=== PATIENT | male | born 1995 | race African-American/Black ===

== ENCOUNTER 2020-11-05 17:39 | Observation (INO) | payer OTHER ==
[2020-11-05] MEDS ORDERED: ONDANSETRON 4 MG/2 ML VIAL IVP STA (18:10)
[2020-11-05] MEDS ORDERED: ASPIRIN 81 MG PO STA (18:23)
[2020-11-05] MEDS ORDERED: SODIUM CHLORIDE 0.9% 500 ML 500 ML IV ONE (18:26)
--- NOTE | 2020-11-05 18:47 | XR ---
EXAMINATION TYPE: XR chest 1V portable DATE OF EXAM: 11/05/2020 COMPARISON: NONE HISTORY: Chest pain TECHNIQUE: Florinda view FINDINGS: Heart and mediastinum are normal. Lungs are clear. Diaphragm is normal. Bony thorax appears normal. There are chest leads. IMPRESSION: Normal chest.
[2020-11-05] MEDS ORDERED: PANTOPRAZOLE 40 MG/10 ML VIAL IVP ONE (20:05)
[2020-11-05] MEDS ORDERED: HYDROmorphone 1 MG/ML 1 ML SYRINGE IVP STA (20:05)
[2020-11-05] MEDS ORDERED: METOCLOPRAMIDE 5 MG/ML 2 ML VIAL IVP STA (20:11)
--- NOTE | 2020-11-05 20:26 | CT ---
EXAMINATION TYPE: CT angio thor/abd pel aorta DATE OF EXAM: 11/05/2020 COMPARISON: None HISTORY: Chest and abdominal pain, hx HTN. N/V CT DLP: 1498.1 mGycm Automated exposure control for dose reduction was used. CONTRAST: Performed with IV Contrast, patient injected with 100 mL of Isovue 370. Images obtained from the thoracic inlet to the floor the pelvis without and subsequently with IV cont rast. There are 3-D post processed images. The lungs are clear of infiltrate. There is no pleural effusion or pneumothorax. Heart size is normal . There is no pericardial effusion. There is no mediastinal adenopathy. There are no hilar masses. Th ere is normal contrast opacification of the pulmonary arteries. There are no filling defects. Thoraci c aorta is intact. There is arterial flow in the celiac artery and superior mesenteric artery. There is arterial flow in the renal and iliac and femoral arteries. There is no evidence of hemodynamic stenosis. There is normal arterial aneurysm or dissection. Bladder distends smoothly. Ureters are not dilated. There is normal contrast opacification of both ki dneys. There is no hydronephrosis. There is no retroperitoneal adenopathy. There is no mesenteric edema. There is no ascites or free air. There is no bowel obstruction. Appendi x appears normal. Liver spleen stomach pancreas gallbladder appear normal. The bile ducts are not dilated. Thoracic and lumbar vertebra have normal alignment. There is no compression fracture. The ribs appear intact. Bony pelvis intact. IMPRESSION: Normal CT angiogram of the chest abdomen pelvis. No evidence of pulmonary embolism.
[2020-11-05 20:39] LABS: INR 1.2 (<1.2); Prothrombin Time 12.3 sec (9.0-12.0)
[2020-11-05 20:47] LABS: Partial Thromboplastin Time 18.7 sec (22.0-30.0)
[2020-11-05 20:58] LABS: Basophils % (A) 0 %; Eosinophils # (A) 0.2 k/uL (0-0.7); Eosinophils % (A) 1 %; HCT 48.1 % (39.0-53.0); HGB 16.2 gm/dL (13.0-17.5); Lymphocytes # (A) 0.7 k/uL (1.0-4.8); Lymphocytes % (A) 6 %; MCHC 33.7 g/dL (31.0-37.0); Mean Platelet Volume 7.8; Monocytes # (A) 0.4 k/uL (0-1.0); Monocytes % (A) 3 %; Neutrophils # (A) 11.2 k/uL (1.3-7.7); Neutrophils % (A) 90 %; Platelet Count 204 k/uL (150-450); RBC 5.22 m/uL (4.30-5.90); RDW 12.4 % (11.5-15.5); WBC 12.4 k/uL (3.8-10.6)
[2020-11-05 21:11] LABS: ALT 26 U/L (4-49); AST 32 U/L (17-59); African American GFR (CKD) >90 (>60 ml/min/1.73 sqM); Albumin 5.1 g/dL (3.5-5.0); Alkaline Phosphatase 65 U/L (38-126); Anion Gap 13 mmol/L; Blood Urea Nitrogen 13 mg/dL (9-20); Carbon Dioxide 21 mmol/L (22-30); Chloride 109 mmol/L (98-107); Glucose 103 mg/dL (74-99); Lipase 47 U/L (23-300); Non-African American GFR(CKD) >90 (>60 ml/min/1.73 sqM); Potassium 4.1 mmol/L (3.5-5.1); Sodium 143 mmol/L (137-145); Total Bilirubin 0.5 mg/dL (0.2-1.3); Total Protein 8.2 g/dL (6.3-8.2)
--- NOTE | 2020-11-05 22:05 | ED ---
Nausea/Vomiting/Diarrhea HPI - General Source: patient Mode of arrival: ambulatory Limitations: no limitations <Manda Noe - Last Filed: 11/05/20 22:52> <Kiko Yang - Last Filed: 11/06/20 06:16> - General Chief complaint: Nausea/Vomiting/Diarrhea Stated complaint: Chest pain Time Seen by Provider: 11/05/20 17:50 - History of Present Illness Initial comments: 24-year-old male with history of hypertension presenting today for chief complaint of vomiting chest pain abdominal pain. Patient states that he began vomiting a few hours prior to arrival he states she is vomiting pretty hard he states he has both chest and abdominal pain he states is unsure which one began first. States he is nauseated. Patient denies any blood in his vomit or stool seems denies any USE dark black stools he denies any fevers he states he feels slightly short of breath. Denies headaches, fevers, cough. Denies localzied abdominal pain, just states its all over. Denies experiencing this in the past. Denies ripping tearing back pain, chest pressure, jaw or arm pain, Denies pain increasing with exertion or exertional dyspnea. Denies falls/head injuries. Patient has no additional complaints or concerns. on arrival patient actively vomiting. (Manda Noe) - Related Data Home Medications Medication Instructions Recorded Confirmed No Known Home Medications 11/05/20 11/05/20 Allergies Allergy/AdvReac Type Severity Reaction Status Date / Time No Known Allergies Allergy Verified 11/05/20 22:51 Review of Systems ROS Other: All systems not noted in ROS Statement are negative. <Manda Noe - Last Filed: 11/05/20 22:52> ROS Other: All systems not noted in ROS Statement are negative. <Kiko Yang - Last Filed: 11/06/20 06:16> ROS Statement: Those systems with pertinent positive or pertinent negative responses have been documented in the HPI. Past Medical History Past Medical History: No Reported History Past Surgical History: No Surgical Hx Reported Smoking Status: Current some day smoker Past Alcohol Use History: None Reported Past Drug Use History: Marijuana <Manda Noe - Last Filed: 11/05/20 22:52> General Exam Limitations: no limitations <Manda Noe - Last Filed: 11/05/20 22:52> - General Exam Comments Initial Comments: General: The patient is awake and alert, in no distress, but is vomiting Eye: Pupils are equal, round and reactive to light, extra-ocular movements are intact. No nystagmus. There is normal conjunctiva bilaterally. No signs of i cterus. Ears, nose, mouth and throat: There are moist mucous membranes and no oral lesions. Neck: The neck is supple, there is no tenderness or JVD. Cardiovascular: There is a regular rate and rhythm. No murmur, rub or gallop is appreciated. Respiratory: Lungs are clear to auscultation, respirations are non-labored, breath sounds are equal. No wheezes, stridor, rales, or rhonchi. Gastrointestinal: Soft, non-distended, diffuse upper abdominal pain, poorly localzied, no pulsatile masses, abdomen without masses or organomegaly noted. There is no rebound or guarding present. Musculoskeletal: Normal ROM, no tenderness. Strength 5/5. Sensation intact. Radial and Dp pulses equal bilaterally 2+. Neurological: A&O x 3. CN II-XII intact grossly, There are no obvious motor or sensory deficits. Coordination appears grossly intact. Speech is normal. Skin: Skin is warm and dry and no rashes or lesions are noted. Psychiatric: Cooperative, appropriate mood & affect, normal judgment. (Manda Noe) Course Vital Signs 11/05/20 11/05/20 11/05/20 17:40 20:38 20:58 Temperature 98.8 F Pulse Rate 65 71 Respiratory 18 18 Rate Blood Pressure 168/83 170/105 177/92 O2 Sat by Pulse 99 95 Oximetry 11/05/20 11/05/20 11/06/20 22:14 23:45 01:00 Temperature 99.1 F Pulse Rate 69 82 Respiratory 16 16 16 Rate Blood Pressure 138/77 152/84 147/83 O2 Sat by Pulse 95 98 97 Oximetry 11/06/20 11/06/20 03:23 04:58 Temperature Pulse Rate 87 97 Respiratory 18 16 Rate Blood Pressure 154/92 158/76 O2 Sat by Pulse 97 98 Oximetry Medical Decision Making - Lab Data Result diagrams: 11/05/20 20:44 11/05/20 20:44 <Manda Noe - Last Filed: 11/05/20 22:52> - Lab Data Result diagrams: 11/05/20 20:44 11/05/20 20:44 - Radiology Data Radiology results: report reviewed (CT a negative for acute disease), image reviewed <Kiko Yang - Last Filed: 11/06/20 06:16> - Medical Decision Making Labs mild leukocytosis, no lower abdominal pain. no localized pain. CTA (-) dissection/PE, or acute intrabdominal process. EKG t-waves appear prominent in lateral leads. initial troponin (-). symptoms betteer per patient. discussed case with Dr. Yang who is awaiting results of 3 hour troponin (Manda Noe) 24 male DF for evaluation with mildly mild troponin. Patient refusing discharge states he has persistent chest pain here in the ER, we'll admit for chest pain observation cardiology (Kiko Yang) - Lab Data Lab Results 11/05/20 11/05/20 11/05/20 Range/Units 19:27 20:44 20:44 WBC 12.4 H (3.8-10.6) k/uL RBC 5.22 (4.30-5.90) m/uL Hgb 16.2 (13.0-17.5) gm/dL Hct 48.1 (39.0-53.0) % MCV 92.0 (80.0-100.0) fL MCH 31.0 (25.0-35.0) pg MCHC 33.7 (31.0-37.0) g/dL RDW 12.4 (11.5-15.5) % Plt Count 204 (150-450) k/uL MPV 7.8 Neutrophils % 90 % Lymphocytes % 6 % Monocytes % 3 % Eosinophils % 1 % Basophils % 0 % Neutrophils # 11.2 H (1.3-7.7) k/uL Lymphocytes # 0.7 L (1.0-4.8) k/uL Monocytes # 0.4 (0-1.0) k/uL Eosinophils # 0.2 (0-0.7) k/uL Basophils # 0.0 (0-0.2) k/uL PT 12.3 H (9.0-12.0) sec INR 1.2 H (<1.2) APTT 18.7 L (22.0-30.0) sec Sodium 143 (137-145) mmol/L Potassium 4.1 (3.5-5.1) mmol/L Chloride 109 H (98-107) mmol/L Carbon Dioxide 21 L (22-30) mmol/L Anion Gap 13 mmol/L BUN 13 (9-20) mg/dL Creatinine 1.09 (0.66-1.25) mg/dL Est GFR (CKD-EPI)AfAm >90 (>60 ml/min/1.73 sqM) Est GFR (CKD-EPI)NonAf >90 (>60 ml/min/1.73 sqM) Glucose 103 H (74-99) mg/dL Calcium 10.0 (8.4-10.2) mg/dL Magnesium 2.0 (1.6-2.3) mg/dL Total Bilirubin 0.5 (0.2-1.3) mg/dL AST 32 (17-59) U/L ALT 26 (4-49) U/L Alkaline Phosphatase 65 (38-126) U/L Troponin I (0.000-0.034) ng/mL NT-Pro-B Natriuret Pep pg/mL Total Protein 8.2 (6.3-8.2) g/dL Albumin 5.1 H (3.5-5.0) g/dL Lipase 47 (23-300) U/L Influenza Type A (PCR) (Not Detectd) Influenza Type B (PCR) (Not Detectd) RSV (PCR) (Not Detectd) SARS-CoV-2 (PCR) (Not Detectd) 11/05/20 11/05/20 11/05/20 Range/Units 20:44 20:44 22:12 WBC (3.8-10.6) k/uL RBC (4.30-5.90) m/uL Hgb (13.0-17.5) gm/dL Hct (39.0-53.0) % MCV (80.0-100.0) fL MCH (25.0-35.0) pg MCHC (31.0-37.0) g/dL RDW (11.5-15.5) % Plt Count (150-450) k/uL MPV Neutrophils % % Lymphocytes % % Monocytes % % Eosinophils % % Basophils % % Neutrophils # (1.3-7.7) k/uL Lymphocytes # (1.0-4.8) k/uL Monocytes # (0-1.0) k/uL Eosinophils # (0-0.7) k/uL Basophils # (0-0.2) k/uL PT (9.0-12.0) sec INR (<1.2) APTT (22.0-30.0) sec Sodium (137-145) mmol/L Potassium (3.5-5.1) mmol/L Chloride (98-107) mmol/L Carbon Dioxide (22-30) mmol/L Anion Gap mmol/L BUN (9-20) mg/dL Creatinine (0.66-1.25) mg/dL Est GFR (CKD-EPI)AfAm (>60 ml/min/1.73 sqM) Est GFR (CKD-EPI)NonAf (>60 ml/min/1.73 sqM) Glucose (74-99) mg/dL Calcium (8.4-10.2) mg/dL Magnesium (1.6-2.3) mg/dL Total Bilirubin (0.2-1.3) mg/dL AST (17-59) U/L ALT (4-49) U/L Alkaline Phosphatase (38-126) U/L Troponin I 0.014 (0.000-0.034) ng/mL NT-Pro-B Natriuret Pep 41 pg/mL Total Protein (6.3-8.2) g/dL Albumin (3.5-5.0) g/dL Lipase (23-300) U/L Influenza Type A (PCR) Not Detected (Not Detectd) Influenza Type B (PCR) Not Detected (Not Detectd) RSV (PCR) Not Detected (Not Detectd) SARS-CoV-2 (PCR) Not Detected (Not Detectd) 11/06/20 Range/Units 00:11 WBC (3.8-10.6) k/uL RBC (4.30-5.90) m/uL Hgb (13.0-17.5) gm/dL Hct (39.0-53.0) % MCV (80.0-100.0) fL MCH (25.0-35.0) pg MCHC (31.0-37.0) g/dL RDW (11.5-15.5) % Plt Count (150-450) k/uL MPV Neutrophils % % Lymphocytes % % Monocytes % % Eosinophils % % Basophils % % Neutrophils # (1.3-7.7) k/uL Lymphocytes # (1.0-4.8) k/uL Monocytes # (0-1.0) k/uL Eosinophils # (0-0.7) k/uL Basophils # (0-0.2) k/uL PT (9.0-12.0) sec INR (<1.2) APTT (22.0-30.0) sec Sodium (137-145) mmol/L Potassium (3.5-5.1) mmol/L Chloride (98-107) mmol/L Carbon Dioxide (22-30) mmol/L Anion Gap mmol/L BUN (9-20) mg/dL Creatinine (0.66-1.25) mg/dL Est GFR (CKD-EPI)AfAm (>60 ml/min/1.73 sqM) Est GFR (CKD-EPI)NonAf (>60 ml/min/1.73 sqM) Glucose (74-99) mg/dL Calcium (8.4-10.2) mg/dL Magnesium (1.6-2.3) mg/dL Total Bilirubin (0.2-1.3) mg/dL AST (17-59) U/L ALT (4-49) U/L Alkaline Phosphatase (38-126) U/L Troponin I 0.015 (0.000-0.034) ng/mL NT-Pro-B Natriuret Pep pg/mL Total Protein (6.3-8.2) g/dL Albumin (3.5-5.0) g/dL Lipase (23-300) U/L Influenza Type A (PCR) (Not Detectd) Influenza Type B (PCR) (Not Detectd) RSV (PCR) (Not Detectd) SARS-CoV-2 (PCR) (Not Detectd) Disposition <Manda Noe - Last Filed: 11/05/20 22:52> Is patient prescribed a controlled substance at d/c from ED?: No <Kiko Yang - Last Filed: 11/06/20 06:16> Clinical Impression: Chest pain Disposition: ADMITTED IP TO THIS HOSP Condition: Good
[2020-11-06] MEDS ORDERED: NITROGLYCERIN SL TABS 0.4 MG TAB SUBLINGUAL PRN (05:04)
[2020-11-06] MEDS: MORPHINE SULFATE 4 MG/ML SYRINGE IV PRN ×4 (06:28→19:45)
--- NOTE | 2020-11-06 09:28 | P.CRDCN ---
History of Present Illness History of present illness: HISTORY OF PRESENTING ILLNESS This is a pleasant 24-year-old -[place] male past medical history significant for chronic nicotine and marijuana use. Denies prior history of coronary artery disease and does not follow in the office with a director specialty. We have been asked to see in consultation for chest pain. 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 Was associated with nausea, vomiting and epigastric abdominal pain. He continues to have ongoing chest discomfort when he takes a deep breath and has epigastric tenderness on exam. He denies exertional chest discomfort. He has no significant shortness of breath, palpitations or diaphoresis. EKG on arrival reveals sinus mechanism with early repolarization changes noted in the precordial leads with ST depression in V1. There is no old EKG for comparison. The patient states he has not had an EKG before to his knowledge. Chest x-ray is negative for an acute cardiopulmonary process. CT of the thoracic aorta is unremarkable with no evidence of PE. Laboratory data reviewed, WBC 12.4, hemoglobin 16.2, platelets 204, sodium 143, potassium 4.1, creatinine 1.09, magnesium 2.0, cardiac enzymes negative 3, NT proBNP 41. REVIEW OF SYSTEMS At the time of my exam: CONSTITUTIONAL: Denies fever or chills. CARDIOVASCULAR: Complains of pleuritic chest pain. Denies shortness of breath, orthopnea, PND or palpitations. RESPIRATORY: Denies cough. GASTROINTESTINAL: Complains of epigastric tenderness. Denies abdominal pain, diarrhea, constipation, nausea or vomiting. MUSCULOSKELETAL: Denies myalgias. NEUROLOGIC: Denies numbness, tingling, headacbe or weakness. ENDOCRINE: Denies fatigue, weight change, polydipsia or polyurina. GENITOURINARY: Denies burning, hematuria or urgency with micturation. HEMATOLOGIC: Denies history of anemia or bleeding. PHYSICAL EXAMINATION Blood pressure 150/82 heart rate 80 afebrile and maintaining oxygen saturation on room air. CONSTITUTIONAL: No apparent distress. HEENT: Head is normocephalic. Pupils are equal, round. Sclerae anicteric. Mucous membranes of the mouth are moist. No JVD. No carotid bruit. CHEST EXAMINATION: Lungs are clear to auscultation. No chest wall tenderness is noted on palpation or with deep breathing. HEART EXAMINATION: Regular rate and rhythm. S1, S2 heard. No murmurs, gallops or rub. ABDOMEN: Soft, nontender. Positive bowel sounds. EXTREMITIES: 2+ peripheral pulses, no lower extremity edema and no calf tenderness. NEUROLOGIC EXAMINATION: Patient is awake, alert and oriented x3. ASSESSMENT Chest pain, pleuritic. Atypical for angina. Leukocytosis Abnormal EKG Epigastric tenderness Hypertension, could be related to pain Chronic nicotine dependence Marijuana use PLAN An acute coronary event has been ruled out. Chest pain is pleuritic and atypical to be related to angina. Abnormal EKG and discomfort could be related to pericarditis we will check a sed rate and CRP. Epigastric discomfort to be evaluated by the primary care team. Echocardiogram has been obtained and will be reviewed. Thank you kindly for this consultation. Nurse Practitioner note has been reviewed, I agree with a documented findings and plan of care. Patient was seen and examined. Past Medical History Past Medical History: No Reported History Past Surgical History: No Surgical Hx Reported Smoking Status: Current some day smoker Past Alcohol Use History: None Reported Past Drug Use History: Marijuana Medications and Allergies Home Medications Medication Instructions Recorded Confirmed Type No Known Home Medications 11/05/20 11/05/20 History Allergies Allergy/AdvReac Type Severity Reaction Status Date / Time No Known Allergies Allergy Verified 11/05/20 22:51 Physical Exam Vitals: Vital Signs Temp Pulse Resp BP Pulse Ox 11/06/20 07:27 98.6 F 80 18 150/82 96 11/06/20 06:15 91 16 159/79 98 11/06/20 04:58 97 16 158/76 98 11/06/20 03:23 87 18 154/92 97 11/06/20 01:00 16 147/83 97 11/05/20 23:45 82 16 152/84 98 11/05/20 22:14 99.1 F 69 16 138/77 95 11/05/20 20:58 177/92 11/05/20 20:38 71 18 170/105 95 11/05/20 17:40 98.8 F 65 18 168/83 99 Intake and Output 11/05/20 11/06/20 11/06/20 22:59 06:59 14:59 Other: Weight 86.183 kg Results 11/05/20 20:44 11/05/20 20:44 Cardiac Enzymes 11/05/20 11/05/20 11/06/20 Range/Units 20:44 20:44 00:11 AST 32 (17-59) U/L Troponin I 0.014 0.015 (0.000-0.034) ng/mL 11/06/20 Range/Units 07:14 AST (17-59) U/L Troponin I 0.012 (0.000-0.034) ng/mL Coagulation 11/05/20 Range/Units 19:27 PT 12.3 H (9.0-12.0) sec APTT 18.7 L (22.0-30.0) sec CBC 11/05/20 Range/Units 20:44 WBC 12.4 H (3.8-10.6) k/uL RBC 5.22 (4.30-5.90) m/uL Hgb 16.2 (13.0-17.5) gm/dL Hct 48.1 (39.0-53.0) % Plt Count 204 (150-450) k/uL Comprehensive Metabolic Panel 11/05/20 Range/Units 20:44 Sodium 143 (137-145) mmol/L Potassium 4.1 (3.5-5.1) mmol/L Chloride 109 H (98-107) mmol/L Carbon Dioxide 21 L (22-30) mmol/L BUN 13 (9-20) mg/dL Creatinine 1.09 (0.66-1.25) mg/dL Glucose 103 H (74-99) mg/dL Calcium 10.0 (8.4-10.2) mg/dL AST 32 (17-59) U/L ALT 26 (4-49) U/L Alkaline Phosphatase 65 (38-126) U/L Total Protein 8.2 (6.3-8.2) g/dL Albumin 5.1 H (3.5-5.0) g/dL Current Medications Generic Name Dose Route Start Last Admin Trade Name Freq PRN Reason Stop Dose Admin Aspirin 325 mg 11/06/20 09:00 Aspirin 325 Mg Tab PO DAILY MILAGRO Morphine Sulfate 4 mg 11/06/20 05:04 11/06/20 06:28 Morphine Sulfate 4 Mg/Ml Syringe IV 4 mg Q4HR PRN Administration Chest Pain Nitroglycerin 0.4 mg 11/06/20 05:04 Nitroglycerin Sl Tabs 0.4 Mg Tab SUBLINGUAL Q5M PRN Chest Pain Intake and Output 11/05/20 11/06/20 11/06/20 22:59 06:59 14:59 Other: Weight 86.183 kg 11/05/20 20:44 11/05/20 20:44
[2020-11-06] MEDS: ASPIRIN 325 MG TAB PO SCH (10:17)
--- NOTE | 2020-11-06 11:58 | ECHOF ---
Referral Reason: MEASUREMENTS -------- HEIGHT: 182.9 cm WEIGHT: 86.2 kg BP: RVIDd: 2.0 cm (< 3.3) IVSd: 1.4 cm (0.6 - 1.1) LVIDd: 3.9 cm (3.9 - 5.3) LVPWd: 1.6 cm (0.6 - 1.1) IVSs: 1.7 cm LVIDs: 2.5 cm LVPWs: 2.0 cm LA Diam: 3.1 cm (2.7 - 3.8) Ao Diam: 3.4 cm (2.0 - 3.7) MV EXCURSION: 16.264 mm (> 18.000) MV EF SLOPE: 108 mm/s (70 - 150) EPSS: 0.7 cm MV E Govind: 0.74 m/s MV DecT: 145 ms MV A Govind: 0.47 m/s MV E/A Ratio: 1.59 RAP: 5.00 mmHg RVSP: 15.58 mmHg FINDINGS -------- Sinus rhythm. This was a technically adequate study. The left ventricular size is normal. There is moderate concentric left ventricular hypertrophy. O verall left ventricular systolic function is normal with, an EF between 55 - 60 %. The diastolic fi lling pattern is normal for the age of the patient 7.94. The right ventricle is normal in size. The left atrial size is normal. The right atrial size is normal. The aortic valve is trileaflet, and appears structurally normal. No aortic stenosis or regurgitation. The mitral valve is normal. Mild mitral regurgitation is present. The tricuspid valve appears structurally normal. Mild tricuspid regurgitation present. Right vent ricular systolic pressure is normal at < 35 mmHg. There is no pulmonic regurgitation present. The aortic root size is normal. There is no pericardial effusion. CONCLUSIONS -------- 1. There is moderate concentric left ventricular hypertrophy. 2. Overall left ventricular systolic function is normal with, an EF between 55 - 60 %. 3. The left atrial size is normal. 4. The aortic valve is trileaflet, and appears structurally normal. No aortic stenosis or regurgitati on. 5. Mild mitral regurgitation is present. 6. Mild tricuspid regurgitation present. 7. There is no pericardial effusion. CERTIFIED PERSONAL CHEF: Tanya Garcia RDCS
--- NOTE | 2020-11-06 14:28 | P.HPIM ---
History of Present Illness 24-year-old pleasant male came in with the complaints of epigastric and midabdominal pain as well as chest pain and epigastric pain is a burning in nature started a few hours after eating an Ukrainian sandwich at work patient was also complained of chest pressure like sensation as the as at that same time patient felt like he cannot catch her breath. Although he denied any obvious pleuritic nature of chest pain. Patient had a CT of the abdomen and pelvis and thoracic aorta as well as chest CT which did not show any pulmonary embolism no significant pathology was evident on the CT of the abdomen. Patient was evaluated by cardiology. Echocardiogram was obtained which is essentially within normal limits. Patient does use marijuana occasionally but he states his last marijuana use was about a week ago denied any other drug abuse does smoke occasionally as well. Used to smoke quite a bit trying to cut down. This was also complaining of nausea no diaphoresis. Review of Systems REVIEW OF SYSTEMS: CONSTITUTIONAL: No fever, no malaise, no fatigue. HEENT: No recent visual problems or hearing problems. Denied any sore throat. CARDIOVASCULAR: No orthopnea, PND, no palpitations, no syncope. PULMONARY: no cough, no hemoptysis. GASTROINTESTINAL: As mentioned in HPI NEUROLOGICAL: No headaches, no weakness, no numbness. HEMATOLOGICAL: Denies any bleeding or petechiae. GENITOURINARY: Denies any burning micturition, frequency, or urgency. MUSCULOSKELETAL/RHEUMATOLOGICAL: Denies any joint pain, swelling, or any muscle pain. ENDOCRINE: Denies any polyuria or polydipsia. The rest of the 14-point review of systems is negative. Past Medical History Past Medical History: Asthma, Hypertension, Pneumonia Additional Past Medical History / Comment(s): Pt states he has had HTN in the past and was on HTN medication but was taken off of it and is monitoring his blood pressure. History of Any Multi-Drug Resistant Organisms: None Reported Past Surgical History: Hernia Repair Additional Past Surgical History / Comment(s): Umbilical hernia as a child Past Anesthesia/Blood Transfusion Reactions: No Reported Reaction Smoking Status: Current every day smoker - Past Family History Father Family Medical History: Diabetes Mellitus, Hypertension Additional Family Medical History / Comment(s): Father had bariatric surgery Mother Additional Family Medical History / Comment(s): Vision issues. Medications and Allergies Home Medications Medication Instructions Recorded Confirmed Type No Known Home Medications 11/05/20 11/05/20 History Allergies Allergy/AdvReac Type Severity Reaction Status Date / Time No Known Allergies Allergy Verified 11/05/20 22:51 Physical Exam Vitals: Vital Signs Temp Pulse Pulse Resp BP BP Pulse Ox 11/06/20 12:10 98.7 F 66 16 114/72 97 11/06/20 11:37 98.6 F 106 H 18 165/95 96 11/06/20 10:18 106 H 18 165/95 96 11/06/20 07:27 98.6 F 80 18 150/82 96 11/06/20 06:15 91 16 159/79 98 11/06/20 04:58 97 16 158/76 98 11/06/20 03:23 87 18 154/92 97 11/06/20 01:00 16 147/83 97 11/05/20 23:45 82 16 152/84 98 11/05/20 22:14 99.1 F 69 16 138/77 95 11/05/20 20:58 177/92 11/05/20 20:38 71 18 170/105 95 11/05/20 17:40 98.8 F 65 18 168/83 99 Intake and Output 11/05/20 11/06/20 11/06/20 22:59 06:59 14:59 Other: Weight 86.183 kg 86.183 kg Results CBC & Chem 7: 11/05/20 20:44 11/05/20 20:44 Labs: Abnormal Lab Results - Last 24 Hours (Table) 11/05/20 11/05/20 11/05/20 Range/Units 19:27 20:44 20:44 WBC 12.4 H (3.8-10.6) k/uL Neutrophils # 11.2 H (1.3-7.7) k/uL Lymphocytes # 0.7 L (1.0-4.8) k/uL PT 12.3 H (9.0-12.0) sec INR 1.2 H (<1.2) APTT 18.7 L (22.0-30.0) sec Chloride 109 H (98-107) mmol/L Carbon Dioxide 21 L (22-30) mmol/L Glucose 103 H (74-99) mg/dL Albumin 5.1 H (3.5-5.0) g/dL Thrombosis Risk Factor Assmnt - Choose All That Apply Any of the Below Risk Factors Present?: No Other Risk Factors: No Other congenital or acquired thrombophilia - If yes, enter type in comment: No Thrombosis Risk Factor Assessment Level: Very Low Risk Assessment and Plan Plan: -Chest pain atypical probably musculoskeletal patient the doesn't have any pneumonia ruled out pulmonary embolism. Echocardiogram within normal limits and washed wall motion abnormalities -Abdominal pain: Probably peptic ulcer disease, gastritis or gastroenteritis patient will be started on Protonix will hydrate him, patient will be monitored and ultrasound of the right upper quadrant will be obtained to evaluate any cholelithiasis -Hypertension -Nicotine dependence and marijuana use
[2020-11-06] MEDS: PANTOPRAZOLE 40 MG/10 ML VIAL IVP SCH (19:44)
[2020-11-07] MEDS: MORPHINE SULFATE 4 MG/ML SYRINGE IV PRN ×2 (04:11→09:03)
[2020-11-07 06:30] LABS: Cholesterol 234 mg/dL (<200); HDL Cholesterol 37 mg/dL (40-60); LDL Cholesterol,Calculated 182 mg/dL (0-99); Triglycerides 73 mg/dL (<150)
--- NOTE | 2020-11-07 07:35 | US ---
EXAMINATION TYPE: US gallbladder DATE OF EXAM: 11/07/2020 COMPARISON: NONE CLINICAL HISTORY: abd pain. pain, NPO EXAM MEASUREMENTS: Liver Length: 15.9 cm Gallbladder Wall: 0.1 cm CBD: 0.4 cm Right Kidney: 10.5 x 4.8 x 3.7 cm Pancreas: Obscured by bowel gas Liver: wnl Gallbladder: fold seen Evidence for sonographic Aviles's sign: neg CBD: wnl Right Kidney: No hydronephrosis or masses seen IMPRESSION: 1. No acute process as visualized.
[2020-11-07] MEDS: PANTOPRAZOLE 40 MG/10 ML VIAL IVP SCH ×2 (08:56→19:54)
[2020-11-07] MEDS: ASPIRIN 325 MG TAB PO SCH (08:56)
--- NOTE | 2020-11-07 09:38 | P.PN ---
Subjective HISTORY OF PRESENTING ILLNESS This is a pleasant 24-year-old -Tong[place] male past medical history significant for chronic nicotine and marijuana use. 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 We have been asked to see in consultation for chest pain. 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 Was associated with nausea, vomiting and epigastric abdominal pain. He continues to have ongoing chest discomfort when he takes a deep breath and has epigastric tenderness on exam. He denies exertional chest discomfort. He has no significant shortness of breath, palpitations or diaphoresis. EKG on arrival reveals sinus mechanism with early repolarization changes noted in the precordial leads with ST depression in V1. There is no old EKG for comparison. The patient states he has not had an EKG before to his knowledge. Chest x-ray is negative for an acute cardiopulmonary process. CT of the thoracic aorta is unremarkable with no evidence of PE. Laboratory data reviewed, WBC 12.4, hemoglobin 16.2, platelets 204, sodium 143, potassium 4.1, creatinine 1.09, magnesium 2.0, cardiac enzymes negative 3, NT proBNP 41. 11/07/2020 Patient seen and examined resting comfortably laying flat in bed in no acute distress. He continues to complain of abdominal discomfort. He has had no further symptoms of chest pain. Breathing is stable. Blood pressure 118/77 heart rate 63 afebrile maintaining oxygen saturation on room air. Repeat EKG reveals sinus mechanism with ST abnormalities noted as previous. No changes. Likely normal variant for this gentleman. Laboratory data reviewed, LDL 182, HDL 37 and total cholesterol 234, sedimentation rate 6 and CRP 0.7. He underwent an ultrasound of his gallbladder that was negative for an acute process. Echocardiogram obtained reveals preserved LV systolic function with ejection fraction 55-60%, mild MR and mild TR. PHYSICAL EXAMINATION CONSTITUTIONAL: No apparent distress. HEENT: Head is normocephalic. Pupils are equal, round. Sclerae anicteric. Mucous membranes of the mouth are moist. No JVD. No carotid bruit. CHEST EXAMINATION: Lungs are clear to auscultation. No chest wall tenderness is noted on palpation or with deep breathing. HEART EXAMINATION: Regular rate and rhythm. S1, S2 heard. No murmurs, gallops or rub. EXTREMITIES: 2+ peripheral pulses, no lower extremity edema and no calf tenderness. ASSESSMENT Chest pain, pleuritic. Atypical for angina. Leukocytosis Abnormal EKG Epigastric tenderness Hypertension, could be related to pain Chronic nicotine dependence Marijuana use Dyslipidemia PLAN Clinically stable from a cardiac perspective. No evidence to suggest cardiac etiology of his discomfort. Ongoing medical management. We will follow along as needed. Recommend lifestyle modifications for lowering of LDL cholesterol. Would suggest repeat lipid panel in 3-6 months after diet and exercise regimen has been initiated. Nurse Practitioner note has been reviewed, I agree with a documented findings and plan of care. Patient was seen and examined. Objective - Vital Signs Vital signs: Vital Signs Temp 98.2 F 11/07/20 07:04 Pulse 63 11/07/20 07:04 Resp 14 11/07/20 07:04 BP 118/77 11/07/20 07:04 Pulse Ox 97 11/07/20 07:04 Intake & Output 11/06/20 11/07/20 11/07/20 18:59 06:59 18:59 Intake Total 400 Balance 400 Weight 86.183 kg Intake: Oral 400 Other: # Voids 0 1 - Labs CBC & Chem 7: 11/05/20 20:44 11/05/20 20:44 Labs: Abnormal Lab Results - Last 24 Hours (Table) 11/05/20 Range/Units 20:44 Cholesterol 234 H (<200) mg/dL LDL Cholesterol, Calc 182 H (0-99) mg/dL HDL Cholesterol 37 L (40-60) mg/dL
[2020-11-07] MEDS: traMADol 50 MG TAB PO PRN ×2 (12:18→19:54)
[2020-11-07 13:57] VITALS: BMI 25.0
[2020-11-07] MEDS ORDERED: fentaNYL (PF) 50 MCG/ML 2 ML AMP ONE (14:04)
[2020-11-07] MEDS ORDERED: LIDOCAINE 1% INJ 10MG/ML (20 ML MDV) ONE (14:04)
[2020-11-07] MEDS ORDERED: PROPOFOL 10 MG/ML 20 ML VIAL IV ONE (14:04)
[2020-11-07] MEDS ORDERED: MIDAZOLAM 2 MG/2 ML VIAL ONE (14:04)
[2020-11-07] MEDS ORDERED: SODIUM CHLORIDE 0.9% 500 ML 500 ML IV ONE (14:06)
--- NOTE | 2020-11-07 14:16 | P.PCN ---
Date of Procedure: 11/07/20 Procedure(s) Performed: BRIEF HISTORY: Patient is a 24-year-old, pleasant, have intermittent female admitted hospital with epigastric pain and chest pain of the last [address] of abdomen and pelvis was unremarkable. His and scheduled for an upper endoscopy to evaluate further. PROCEDURE PERFORMED: Esophagogastroduodenoscopy with biopsy. PREOPERATIVE DIAGNOSIS: Severe epigastric pain of 2 days' duration. IV sedation per anesthesia. PROCEDURE: After informed consent was obtained, the patient was brought into the endoscopy unit. IV sedation was administered by Anesthesia under continuous monitoring. Initially the Olympus GIF-140 video endoscope was inserted into the mouth. Esophagus intubated without any difficulty. It was gradually advanced into the stomach and duodenum and carefully examined. The bulb and the second part of the duodenum appeared normal. The scope at this time was withdrawn to the stomach, adequately insufflated with air, and upon careful examination, mucosa of the antrum, mild diffuse gastritis and biopsies were done from this area. The body, cardia and the fundus appeared normal. The scope was then withdrawn into the esophagus. The GE junction was located at 42 cm from the incisors. The esophagus appeared normal. There were no erosions or ulcerations seen and the patient tolerated the procedure well. IMPRESSION: 1. Mild diffuse antral gastritis but no evidence of peptic ulcer disease. 2. Normal-appearing esophagus with no evidence of esophagitis. RECOMMENDATIONS: The findings of this examination were discussed with the patient . He will follow with the biopsy results. He will be continued on Protonix 40 mg twice daily. 11 Carafate 1 g 4 times daily. Advance diet as tolerated..
--- NOTE | 2020-11-07 14:52 | CONS ---
CONSULTATION DATE OF DICTATION: November 07, 2020. REASON FOR CONSULTATION: Severe upper abdominal pain of 3 days duration. HISTORY OF PRESENT ILLNESS: The patient is a 24-year-old male, came into the emergency room complaining of epigastric and periumbilical abdominal pain that started about 2 days ago. He went to work and he started having severe symptoms following which he had several episodes of nausea, vomiting. The pain radiated to his chest, initially had some burning pain, but continued to progressively get worse and hence came into the emergency room. He had a CT of the chest done that was unremarkable. Subsequently had a CT of the abdomen and pelvis done that also was unremarkable. He was started on IV Protonix 40 mg q.12 hours. The patient continues to have persistent symptoms and hence we are consulted for further evaluation. The patient denies any prior history of peptic ulcer disease or recent NSAID use. Denies any rectal bleeding or melena. Denies any significant change in his bowel habits. PAST MEDICAL HISTORY: Asthma, hypertension. MEDICATIONS AT HOME: None. ALLERGIES: No known drug allergies. PAST SURGICAL HISTORY: Umbilical hernia repair as a child. SOCIAL HISTORY: Chronic smoker. No alcohol use. FAMILY HISTORY: Father diabetes mellitus and hypertension. Mother unremarkable. REVIEW OF SYSTEMS: CARDIOPULMONARY: No chest pain or shortness of breath. GENITOURINARY: No dysuria or hematuria. MUSCULOSKELETAL: Unremarkable. SKIN: Unremarkable. ENDOCRINE: Unremarkable. PSYCHIATRIC: Unremarkable. NEUROLOGY: Unremarkable. ENT/VISION: Unremarkable. CONSTITUTIONAL: No recent weight loss. No fever, chills, night sweats. PHYSICAL EXAMINATION: He appears comfortable. No apparent distress. Vital signs are stable. Blood pressure is 133/82, pulse is 63, temperature 98.2. HEENT EXAMINATION: Unremarkable. Conjunctivae pink. Sclerae anicteric. Oral cavity no lesions. NECK: No JVD or lymph node enlargement. CHEST: Was clear to auscultation. HEART: Regular rate and rhythm. ABDOMEN: Soft. Mild tenderness in the epigastric and periumbilical area. No organomegaly. EXTREMITIES: No pedal edema. NEUROLOGIC: Alert and oriented x3. No focal deficits. LABS: WBC 12.4, hemoglobin 16, platelets normal. PT, INR normal. ALT, AST, T bilirubin and alkaline phosphatase are normal. Albumin 5.1. Coronavirus PCR is negative. IMPRESSION: This is a patient who presents to the hospital with acute onset of severe epigastric pain and chest pain that started about 2 days ago, had multiple episodes of nausea, vomiting. CT of the abdomen was unremarkable. CT of the chest was unremarkable. Rule out possibility of peptic ulcer disease. Presently on IV Protonix 40 mg q.12 hours and still remains symptomatic. RECOMMENDATION: 1. Keep the patient n.p.o. 2. Continue with Protonix 40 mg twice daily. 3. We will proceed with EGD today. 4. Discussed with patient risks, benefits and complications and he is agreeable to it. Thank you for this consultation. MMTATYL / IJN: [id number] /
--- NOTE | 2020-11-07 16:46 | P.DS ---
Providers Date of admission: 11/06/20 05:04 Expected date of discharge: 11/07/20 Attending physician: Sandy Castaneda Consults: 11/06/20 05:04 Consult Physician Urgent Consulting Provider: Shorty Lenz Consult Reason/Comments: cp Do you want consulting provider notified?: Yes 11/07/20 11:07 Consult Physician Urgent Consulting Provider: Keena Dutta Consult Reason/Comments: LLQ pain, unable to tolerate diet Do you want consulting provider notified?: Yes Primary care physician: Stated None Hospital Course: Final diagnosis -Chest pain atypical probably musculoskeletal patient the doesn't have any pneumonia ruled out pulmonary embolism. Echocardiogram within normal limits -Abdominal pain: Possible peptic ulcer disease, gastritis or gastroenteritis, that is post EGD showing mild antral gastritis with no peptic ulcer disease -Hypertension -Nicotine dependence and marijuana use Discharge disposition Patient is being discharged in a stable condition with guarded prognosis to home. Patient will follow-up with Dr. Aguilar in the outpatient setting upon discharge. Patient is to follow-up with cardiology and GI in the outpatient setting. Patient to continue with Protonix twice daily and Carafate and follow- up with GI for biopsy results. Total time taken is greater than 35 minutes. Hospital course 24-year-old pleasant male came in with the complaints of epigastric and midabdominal pain as well as chest pain and epigastric pain is a burning in nature started a few hours after eating an [place] sandwich at work patient was also complained of chest pressure like sensation as the as at that same time patient felt like he cannot catch her breath. Although he denied any obvious pleuritic nature of chest pain. Patient had a CT of the abdomen and pelvis and thoracic aorta as well as chest CT which did not show any pulmonary embolism no significant pathology was evident on the CT of the abdomen. Patient was evaluated by cardiology. Echocardiogram was obtained which is essentially within normal limits. Patient does use marijuana occasionally but he states his last marijuana use was about a week ago denied any other drug abuse does smoke occasionally as well. Used to smoke quite a bit trying to cut down. This was also complaining of nausea no diaphoresis. 11/07/2020 Patient is seen in follow-up and continues to have left lower quadrant pain and GI was consulted and patient underwent EGD which showed mild antral gastritis with no evidence of peptic ulcer disease and a normal-appearing esophagus with no evidence of esophagitis area patient will continue with Protonix twice daily along with Carafate and slowly advance diet as tolerated. Recommend continue with full liquids and advance slowly to low fiber over the next few days. Currently no reports of chest pain, shortness of breath, or palpitations. Patient is afebrile. No reports of nausea or vomiting and patient is tolerating diet. Patient will be discharged home today. On exam vital signs are stable. Cardio S1, S2 are muffled. Respiratory system shows diminished breath sounds at the bases with no wheezing or rhonchi noted. Abdomen is soft and nontender. Nervous system shows no focal deficits. Please refer to medication reconciliation sheet for a list of medications. Patient Condition at Discharge: Good Plan - Discharge Summary Discharge Rx Participant: No New Discharge Prescriptions: New traMADol HCl [Ultram] 50 mg PO QID PRN #12 tab PRN Reason: Pain Sucralfate [Carafate] 1 gm PO ACHS 30 Days #120 tab Pantoprazole Sodium [Protonix] 40 mg PO BID 30 Days #60 tablet. Discharge Medication List Pantoprazole Sodium [Protonix] 40 mg PO BID 30 Days #60 tablet. 11/07/20 [Rx] Sucralfate [Carafate] 1 gm PO ACHS 30 Days #120 tab 11/07/20 [Rx] traMADol HCl [Ultram] 50 mg PO QID PRN #12 tab 11/07/20 [Rx] Follow up Appointment(s)/Referral(s): Shorty Lenz MD [STAFF PHYSICIAN] - 2 Weeks Bassam Aguilar MD [REFERRING] - 1-2 Days Keena Dutta MD [STAFF PHYSICIAN] - 10 Days Patient Instructions/Handouts: Heart Healthy Diet (ED), Cholesterol and Your Health (GEN), Mediterranean Diet (DC) Activity/Diet/Wound Care/Special Instructions: Activity Limited until follow-up Follow-up with primary care provider upon discharge follow up with GI outpatient Continue with liquid diet and advance slowly to low fiber as tolerated Continue with Carafate with meals and at bed Continue with Protonix twice daily Discharge Disposition: HOME SELF-CARE
[2020-11-07] MEDS: SUCRALFATE 1 GM TAB PO SCH ×2 (16:49→19:55)
[2020-11-07 19:48] VITALS: RESP 16
[2020-11-08] MEDS: traMADol 50 MG TAB PO PRN ×2 (01:47→08:28)
[2020-11-08] MEDS: ONDANSETRON 4 MG/2 ML VIAL IVP PRN ×2 (01:48→08:28)
[2020-11-08 02:49] VITALS: PULSE 63
[2020-11-08 07:27] VITALS: BP 142/90; TEMP 98.1
[2020-11-08] MEDS: SUCRALFATE 1 GM TAB PO SCH (08:27)
[2020-11-08] MEDS: PANTOPRAZOLE 40 MG/10 ML VIAL IVP SCH (08:27)
[2020-11-08] MEDS: ASPIRIN 325 MG TAB PO SCH (08:28)
== END 2020-11-08 11:11 | disposition home or self-care (01) ==
LOC: EC 17:39 → 6NMEDSUR 11-06 05:04
PROVIDERS: ADMIT Hospitalist; ATTEND Hospitalist
DX: R07.9 Chest pain, unspecified (principal); K29.70 Gastritis, unspecified, without bleeding; I10 Essential (primary) hypertension; F17.200 Nicotine dependence, unspecified, uncomplicated; F12.90 Cannabis use, unspecified, uncomplicated; E78.5 Hyperlipidemia, unspecified; R94.31 Abnormal electrocardiogram [ECG] [EKG]; J45.909 Unspecified asthma, uncomplicated; Z20.822 Contact with and (suspected) exposure to COVID-19; Z87.01 Personal history of pneumonia (recurrent); Z82.49 Family history of ischemic heart disease and other diseases of the circulatory system; Z83.3 Family history of diabetes mellitus
CPT/HCPCS: 96376 ×3; 96361; 96374; 96375 ×2; 99285; 36415 ×2; 93005 ×2; 93306; 83880; 80061; 80053; 85652; 83690; 83735; 84484 ×2; 85025; 85610; 85730; 86140; 87636; 71045; 76705; 71275; 74174; 43239; G0378 ×3; J2250; J2270 ×2; J2765; J2405 ×2; J2001; J3010; J1170; J2704; C9113 ×4; Q9967; 88305; 88342

== ENCOUNTER 2020-11-15 08:40 | Emergency (ER) | payer OTHER ==
[2020-11-15 08:47] VITALS: RESP 18
[2020-11-15] MEDS ORDERED: diphenhydrAMINE 50 MG/ML 1 ML VIAL IVP STA (08:51)
[2020-11-15] MEDS ORDERED: PANTOPRAZOLE 40 MG/10 ML VIAL IVP STA (08:51)
[2020-11-15] MEDS ORDERED: SODIUM CHLORIDE 0.9% 2,000 ML IV STA (08:51)
[2020-11-15] MEDS ORDERED: ONDANSETRON 4 MG/2 ML VIAL IVP STA (08:51)
[2020-11-15 09:10] LABS: Basophils % (A) 0 %; Eosinophils # (A) 0.1 k/uL (0-0.7); Eosinophils % (A) 1 %; HCT 43.3 % (39.0-53.0); HGB 15.2 gm/dL (13.0-17.5); Lymphocytes # (A) 1.6 k/uL (1.0-4.8); Lymphocytes % (A) 16 %; MCH 31.7 pg (25.0-35.0); MCHC 35.2 g/dL (31.0-37.0); MCV 90.2 fL (80.0-100.0); Mean Platelet Volume 8.3; Monocytes # (A) 0.7 k/uL (0-1.0); Monocytes % (A) 7 %; Neutrophils # (A) 7.4 k/uL (1.3-7.7); Neutrophils % (A) 75 %; Platelet Count 226 k/uL (150-450); RDW 12.5 % (11.5-15.5); WBC 9.9 k/uL (3.8-10.6)
--- NOTE | 2020-11-15 09:16 | ED ---
General Adult HPI - General Chief complaint: Nausea/Vomiting/Diarrhea Stated complaint: N&V Time Seen by Provider: 11/15/20 08:43 Source: patient, EMS, RN notes reviewed Mode of arrival: ambulatory Limitations: no limitations - History of Present Illness Initial comments: This is a 24-year-old male presents emergency Department with chief complaint of abdominal discomfort, nausea vomiting. Patient states he was hospitalized recently in which they found he had gastritis. Patient states it isn't evaluated by cardiology also at that time. Patient states he started getting sick last night and states that he's been vomiting, dry heaving throughout the night. He does admit to mild epigastric discomfort no chest pain or shortness of breath denies any severe diarrhea constipation dysuria hematuria. Denies any history of abdominal surgeries. He has meant that he was discharged on medications for her stomach and has been compliant. - Related Data Previous Rx's Medication Instructions Recorded traMADol HCl [Ultram] 50 mg PO QID PRN #12 tab 11/07/20 Omeprazole [PriLOSEC] 40 mg PO DAILY #14 cap 11/15/20 Ondansetron Odt [Zofran Odt] 4 mg PO Q8HR PRN #10 tab 11/15/20 Allergies Allergy/AdvReac Type Severity Reaction Status Date / Time No Known Allergies Allergy Verified 11/15/20 09:52 Review of Systems ROS Statement: Those systems with pertinent positive or pertinent negative responses have been documented in the HPI. ROS Other: All systems not noted in ROS Statement are negative. Past Medical History Past Medical History: Asthma, Hypertension, Pneumonia Additional Past Medical History / Comment(s): Pt states he has had HTN in the past and was on HTN medication but was taken off of it and is monitoring his blood pressure. History of Any Multi-Drug Resistant Organisms: None Reported Past Surgical History: Hernia Repair Additional Past Surgical History / Comment(s): Umbilical hernia as a child Past Anesthesia/Blood Transfusion Reactions: No Reported Reaction Past Psychological History: No Psychological Hx Reported Smoking Status: Current every day smoker Past Alcohol Use History: None Reported Past Drug Use History: Marijuana - Past Family History Father Family Medical History: Diabetes Mellitus, Hypertension Additional Family Medical History / Comment(s): Father had bariatric surgery Mother Additional Family Medical History / Comment(s): Vision issues. General Exam Limitations: no limitations General appearance: alert, in no apparent distress Head exam: Present: atraumatic, normocephalic, normal inspection Eye exam: Present: normal appearance, PERRL, EOMI. Absent: scleral icterus, conjunctival injection, periorbital swelling ENT exam: Present: normal exam, normal oropharynx, mucous membranes moist Neck exam: Present: normal inspection, full ROM. Absent: tenderness, lymphadenopathy Respiratory exam: Present: normal lung sounds bilaterally. Absent: respiratory distress, wheezes, rales, rhonchi, stridor Cardiovascular Exam: Present: regular rate, normal rhythm, normal heart sounds. Absent: systolic murmur, diastolic murmur, rubs, gallop, clicks GI/Abdominal exam: Present: soft, tenderness (Mild epigastric tenderness), normal bowel sounds. Absent: distended, guarding, rebound, rigid Back exam: Absent: CVA tenderness (R), CVA tenderness (L) Neurological exam: Present: alert Skin exam: Present: warm, dry, intact, normal color. Absent: rash Course Vital Signs 11/15/20 08:44 Temperature 98.9 F Pulse Rate 82 Respiratory 18 Rate Blood Pressure 156/96 O2 Sat by Pulse 99 Oximetry Medical Decision Making - Medical Decision Making Patient laboratory unremarkable. Patient had recent workup. Patient has underlying gastritis. We discharged on antiemetics return parameters were discussed. - Lab Data Result diagrams: 11/15/20 08:52 11/15/20 08:52 Lab Results 11/15/20 11/15/20 Range/Units 08:52 08:52 WBC 9.9 (3.8-10.6) k/uL RBC 4.80 (4.30-5.90) m/uL Hgb 15.2 (13.0-17.5) gm/dL Hct 43.3 (39.0-53.0) % MCV 90.2 (80.0-100.0) fL MCH 31.7 (25.0-35.0) pg MCHC 35.2 (31.0-37.0) g/dL RDW 12.5 (11.5-15.5) % Plt Count 226 (150-450) k/uL MPV 8.3 Neutrophils % 75 % Lymphocytes % 16 % Monocytes % 7 % Eosinophils % 1 % Basophils % 0 % Neutrophils # 7.4 (1.3-7.7) k/uL Lymphocytes # 1.6 (1.0-4.8) k/uL Monocytes # 0.7 (0-1.0) k/uL Eosinophils # 0.1 (0-0.7) k/uL Basophils # 0.0 (0-0.2) k/uL Sodium 140 (137-145) mmol/L Potassium 3.8 (3.5-5.1) mmol/L Chloride 106 (98-107) mmol/L Carbon Dioxide 20 L (22-30) mmol/L Anion Gap 14 mmol/L BUN 14 (9-20) mg/dL Creatinine 1.14 (0.66-1.25) mg/dL Est GFR (CKD-EPI)AfAm >90 (>60 ml/min/1.73 sqM) Est GFR (CKD-EPI)NonAf 89 (>60 ml/min/1.73 sqM) Glucose 101 H (74-99) mg/dL Calcium 10.0 (8.4-10.2) mg/dL Total Bilirubin 0.6 (0.2-1.3) mg/dL AST 25 (17-59) U/L ALT 16 (4-49) U/L Alkaline Phosphatase 59 (38-126) U/L Total Protein 8.1 (6.3-8.2) g/dL Albumin 5.0 (3.5-5.0) g/dL Lipase 50 (23-300) U/L Disposition Clinical Impression: Gastritis, Nausea & vomiting Disposition: HOME SELF-CARE Condition: Stable Instructions (If sedation given, give patient instructions): Acute Nausea and Vomiting (ED), Diet for Stomach Ulcers and Gastritis (ED) Additional Instructions: Please return to the Emergency Department if symptoms worsen or any other concerns. Prescriptions: Omeprazole [PriLOSEC] 40 mg PO DAILY #14 cap Ondansetron Odt [Zofran Odt] 4 mg PO Q8HR PRN #10 tab PRN Reason: Nausea Is patient prescribed a controlled substance at d/c from ED?: No Referrals: None,Stated [Primary Care Provider] - 1-2 days Time of Disposition: 11:29
[2020-11-15 09:21] LABS: ALT 16 U/L (4-49); AST 25 U/L (17-59); African American GFR (CKD) >90 (>60 ml/min/1.73 sqM); Alkaline Phosphatase 59 U/L (38-126); Anion Gap 14 mmol/L; Blood Urea Nitrogen 14 mg/dL (9-20); Carbon Dioxide 20 mmol/L (22-30); Chloride 106 mmol/L (98-107); Glucose 101 mg/dL (74-99); Lipase 50 U/L (23-300); Non-African American GFR(CKD) 89 (>60 ml/min/1.73 sqM); Potassium 3.8 mmol/L (3.5-5.1); Sodium 140 mmol/L (137-145); Total Bilirubin 0.6 mg/dL (0.2-1.3); Total Protein 8.1 g/dL (6.3-8.2)
[2020-11-15 10:02] LABS: Appearance,Urine Clear (Clear); Bilirubin,Urine Negative (Negative); Blood,Urine Negative (Negative); Color,Urine Yellow; Glucose,Urine (UA) Negative (Negative); Ketones,Urine 3+ (Negative); Leukocyte Esterase,Urine Negative (Negative); Mucus,Urine Many /hpf; Nitrite,Urine Negative (Negative); PH, Urine 5.5 (5.0-8.0); Protein,Urine 1+ (Negative); Specific Gravity,Urine 1.032 (1.001-1.035); Urobilinogen,Urine <2.0 mg/dL (<2.0); WBC,Urine 4 /hpf (0-5)
[2020-11-15 12:02] VITALS: BP 127/88; PULSE 105; TEMP 98.6
== END 2020-11-15 12:05 | disposition home or self-care (01) ==
LOC: EC 08:40
DX: K29.70 Gastritis, unspecified, without bleeding (principal); J45.909 Unspecified asthma, uncomplicated; I10 Essential (primary) hypertension; F12.90 Cannabis use, unspecified, uncomplicated; F17.200 Nicotine dependence, unspecified, uncomplicated; Z79.899 Other long term (current) drug therapy
CPT/HCPCS: 36415; 80053; 83690; 85025; 81001; 99284; 96374; 96375 ×3; J1200; J2405; C9113; J1790

== ENCOUNTER 2021-11-04 09:02 | Emergency (ER) | payer OTHER ==
[2021-11-04 09:10] VITALS: BP 151/80; PULSE 68; RESP 18; TEMP 99.2
[2021-11-04] MEDS ORDERED: SODIUM CHLORIDE 0.9% 2,000 ML IV STA (09:41)
--- NOTE | 2021-11-04 10:02 | ED ---
Nausea/Vomiting/Diarrhea HPI - General Chief complaint: Nausea/Vomiting/Diarrhea Stated complaint: Nausea,Vomiting Time Seen by Provider: 11/04/21 09:12 Source: patient, EMS, RN notes reviewed Mode of arrival: EMS Limitations: no limitations - History of Present Illness Initial comments: This a 25-year-old male presents emergency Department with chief complaint of nausea vomiting abdominal pain. Patient states pain and vomiting started last 24 hours. Patient states that he's had persistent vomiting unable to keep any down states it is bilious emesis denies any hematemesis or coffee-ground emesis no significant bowel habit changes. No dysuria no hematuria no other complaints. - Related Data Previous Rx's Medication Instructions Recorded traMADol HCl [Ultram] 50 mg PO QID PRN #12 tab 11/07/20 Omeprazole [PriLOSEC] 40 mg PO DAILY #14 cap 11/15/20 Ondansetron Odt [Zofran Odt] 4 mg PO Q8HR PRN #10 tab 11/04/21 Allergies Allergy/AdvReac Type Severity Reaction Status Date / Time No Known Allergies Allergy Verified 11/15/20 09:52 Review of Systems ROS Statement: Those systems with pertinent positive or pertinent negative responses have been documented in the HPI. ROS Other: All systems not noted in ROS Statement are negative. Past Medical History Past Medical History: Asthma, Hypertension, Pneumonia Additional Past Medical History / Comment(s): Pt states he has had HTN in the past and was on HTN medication but was taken off of it and is monitoring his blood pressure. History of Any Multi-Drug Resistant Organisms: None Reported Past Surgical History: Hernia Repair Additional Past Surgical History / Comment(s): Umbilical hernia as a child Past Anesthesia/Blood Transfusion Reactions: No Reported Reaction Past Psychological History: No Psychological Hx Reported Smoking Status: Current every day smoker Past Alcohol Use History: None Reported Past Drug Use History: Marijuana - Past Family History Father Family Medical History: Diabetes Mellitus, Hypertension Additional Family Medical History / Comment(s): Father had bariatric surgery Mother Additional Family Medical History / Comment(s): Vision issues. General Exam Limitations: no limitations General appearance: alert, in no apparent distress Head exam: Present: atraumatic, normocephalic, normal inspection ENT exam: Present: normal exam, mucous membranes moist Neck exam: Present: normal inspection, full ROM. Absent: tenderness, meningismus, lymphadenopathy Respiratory exam: Present: normal lung sounds bilaterally. Absent: respiratory distress, wheezes, rales, rhonchi, stridor Cardiovascular Exam: Present: regular rate, normal rhythm, normal heart sounds. Absent: systolic murmur, diastolic murmur, rubs, gallop, clicks GI/Abdominal exam: Present: soft, tenderness (Diffuse), normal bowel sounds. Absent: distended, guarding, rebound, rigid Back exam: Absent: CVA tenderness (R), CVA tenderness (L) Neurological exam: Present: alert, oriented X3 Skin exam: Present: warm, dry, intact, normal color. Absent: rash Course Vital Signs 11/04/21 09:06 Temperature 99.2 F Pulse Rate 68 Respiratory 18 Rate Blood Pressure 151/80 O2 Sat by Pulse 97 Oximetry Medical Decision Making - Medical Decision Making 25-year-old male presented for abdominal pain nausea vomiting. Patient CT is unremarkable. Patient was hydrated, given antiemetics patient has Some drainage. Patient discharged in stable condition return parameters were discussed. - Lab Data Result diagrams: 11/04/21 09:59 11/04/21 09:59 Lab Results 11/04/21 11/04/21 Range/Units 09:59 09:59 WBC 9.4 (3.8-10.6) k/uL RBC 4.84 (4.30-5.90) m/uL Hgb 15.8 (13.0-17.5) gm/dL Hct 44.4 (39.0-53.0) % MCV 91.8 (80.0-100.0) fL MCH 32.7 (25.0-35.0) pg MCHC 35.6 (31.0-37.0) g/dL RDW 13.3 (11.5-15.5) % Plt Count 260 (150-450) k/uL MPV 8.2 Neutrophils % 84 % Lymphocytes % 9 % Monocytes % 6 % Eosinophils % 0 % Basophils % 0 % Neutrophils # 8.0 H (1.3-7.7) k/uL Lymphocytes # 0.9 L (1.0-4.8) k/uL Monocytes # 0.6 (0-1.0) k/uL Eosinophils # 0.0 (0-0.7) k/uL Basophils # 0.0 (0-0.2) k/uL Sodium 142 (137-145) mmol/L Potassium 3.8 (3.5-5.1) mmol/L Chloride 108 H (98-107) mmol/L Carbon Dioxide 19 L (22-30) mmol/L Anion Gap 15 mmol/L BUN 18 (9-20) mg/dL Creatinine 1.07 (0.66-1.25) mg/dL Est GFR (CKD-EPI)AfAm >90 (>60 ml/min/1.73 sqM) Est GFR (CKD-EPI)NonAf >90 (>60 ml/min/1.73 sqM) Glucose 129 H (74-99) mg/dL Calcium 9.7 (8.4-10.2) mg/dL Total Bilirubin 0.7 (0.2-1.3) mg/dL AST 25 (17-59) U/L ALT 23 (4-49) U/L Alkaline Phosphatase 44 (38-126) U/L Total Protein 8.2 (6.3-8.2) g/dL Albumin 5.0 (3.5-5.0) g/dL Amylase 183 H (30-110) U/L Lipase 35 (23-300) U/L Disposition Clinical Impression: Gastroenteritis Disposition: HOME SELF-CARE Condition: Stable Instructions (If sedation given, give patient instructions): Acute Nausea and Vomiting (ED) Additional Instructions: Please return to the Emergency Department if symptoms worsen or any other concerns. Prescriptions: Ondansetron Odt [Zofran Odt] 4 mg PO Q8HR PRN #10 tab PRN Reason: Nausea Is patient prescribed a controlled substance at d/c from ED?: No Referrals: None,Stated [Primary Care Provider] - 1-2 days Time of Disposition: 12:01
[2021-11-04] MEDS ORDERED: HYDROmorphone 0.5 MG/0.5 ML SYRINGE IVP STA (10:37)
[2021-11-04 10:50] LABS: Basophils % (A) 0 %; Eosinophils % (A) 0 %; HCT 44.4 % (39.0-53.0); HGB 15.8 gm/dL (13.0-17.5); Lymphocytes # (A) 0.9 k/uL (1.0-4.8); Lymphocytes % (A) 9 %; MCH 32.7 pg (25.0-35.0); MCHC 35.6 g/dL (31.0-37.0); MCV 91.8 fL (80.0-100.0); Mean Platelet Volume 8.2; Monocytes # (A) 0.6 k/uL (0-1.0); Monocytes % (A) 6 %; Neutrophils % (A) 84 %; Platelet Count 260 k/uL (150-450); RBC 4.84 m/uL (4.30-5.90); RDW 13.3 % (11.5-15.5); WBC 9.4 k/uL (3.8-10.6)
[2021-11-04 10:52] LABS: ALT 23 U/L (4-49); AST 25 U/L (17-59); African American GFR (CKD) >90 (>60 ml/min/1.73 sqM); Alkaline Phosphatase 44 U/L (38-126); Amylase 183 U/L (30-110); Anion Gap 15 mmol/L; Blood Urea Nitrogen 18 mg/dL (9-20); Calcium 9.7 mg/dL (8.4-10.2); Carbon Dioxide 19 mmol/L (22-30); Chloride 108 mmol/L (98-107); Glucose 129 mg/dL (74-99); Lipase 35 U/L (23-300); Non-African American GFR(CKD) >90 (>60 ml/min/1.73 sqM); Potassium 3.8 mmol/L (3.5-5.1); Sodium 142 mmol/L (137-145); Total Bilirubin 0.7 mg/dL (0.2-1.3); Total Protein 8.2 g/dL (6.3-8.2)
--- NOTE | 2021-11-04 11:38 | CT ---
EXAMINATION TYPE: CT abdomen pelvis w con DATE OF EXAM: 11/04/2021 COMPARISON: CTA aorta November 05, 2020 HISTORY: ABD PAIN, NAUSEA CT DLP: 776.7 mGycm, Automated Exposure Control for Dose Reduction was Utilized. CONTRAST: CT scan of the abdomen and pelvis is performed without oral and with IV Contrast, patient injected wi th 100ML mL of Isovue 300. FINDINGS: LUNG BASES: No significant abnormality is appreciated. LIVER/GB: No significant abnormality is appreciated. PANCREAS: No significant abnormality is seen. SPLEEN: No significant abnormality is seen. ADRENALS: No significant abnormality is seen. KIDNEYS: No significant abnormality is seen. BOWEL: Suboptimal evaluation without enteric contrast and the patient having very little intra-abdomi nal fat. No suspicious small or large bowel dilatation. Normal appearing appendix from the cecum is s een in the right pelvis. PROSTATE/SEMINAL VESICLES: No gross abnormality seen. LYMPH NODES: No greater than 1cm abdominal or pelvic lymph nodes are appreciated. OSSEOUS STRUCTURES: No significant abnormality is seen. OTHER: No significant additional abnormality is seen. IMPRESSION: No bowel obstruction. No significant new or acute finding is seen to account for patient' s clinical symptoms.
== END 2021-11-04 12:29 | disposition home or self-care (01) ==
LOC: EC 09:02
DX: K52.9 Noninfective gastroenteritis and colitis, unspecified (principal); I10 Essential (primary) hypertension; J45.909 Unspecified asthma, uncomplicated; F17.200 Nicotine dependence, unspecified, uncomplicated; F12.90 Cannabis use, unspecified, uncomplicated; Z79.899 Other long term (current) drug therapy
CPT/HCPCS: 36415; 80053; 82150; 83690; 85025; 74177; 99284; 96374; 96375; 96361; J1170; Q9967; J1790

== ENCOUNTER 2022-04-29 11:25 | Emergency (ER) | payer OTHER ==
[2022-04-29 13:01] LABS: Basophils % (A) 1 %; Eosinophils # (A) 0.1 k/uL (0-0.7); Eosinophils % (A) 1 %; HCT 47.4 % (39.0-53.0); HGB 17.1 gm/dL (13.0-17.5); Lymphocytes # (A) 1.4 k/uL (1.0-4.8); Lymphocytes % (A) 15 %; MCH 31.1 pg (25.0-35.0); MCHC 36.1 g/dL (31.0-37.0); MCV 86.2 fL (80.0-100.0); Mean Platelet Volume 8.5; Monocytes # (A) 0.7 k/uL (0-1.0); Monocytes % (A) 8 %; Neutrophils % (A) 75 %; Platelet Count 317 k/uL (150-450); RBC 5.49 m/uL (4.30-5.90); RDW 12.6 % (11.5-15.5); WBC 9.4 k/uL (3.8-10.6)
[2022-04-29 13:18] LABS: ALT 25 U/L (4-49); AST 28 U/L (17-59); African American GFR (CKD) >90 (>60 ml/min/1.73 sqM); Albumin 5.6 g/dL (3.5-5.0); Alkaline Phosphatase 70 U/L (38-126); Amylase 205 U/L (30-110); Anion Gap 20 mmol/L; Blood Urea Nitrogen 12 mg/dL (9-20); Calcium 10.3 mg/dL (8.4-10.2); Carbon Dioxide 19 mmol/L (22-30); Chloride 101 mmol/L (98-107); Glucose 129 mg/dL (74-99); Lipase 73 U/L (23-300); Non-African American GFR(CKD) 84 (>60 ml/min/1.73 sqM); Potassium 3.8 mmol/L (3.5-5.1); Sodium 140 mmol/L (137-145); Total Bilirubin 0.6 mg/dL (0.2-1.3)
[2022-04-29] MEDS ORDERED: SODIUM CHLORIDE 0.9% 1,000 ML IV STA ×3 (15:22→18:41)
[2022-04-29] MEDS ORDERED: MORPHINE SULFATE 2 MG/ML SYRINGE IVP STA (15:28)
[2022-04-29] MEDS ORDERED: KETOROLAC 15 MG/ML 1 ML VIAL IVP STA (15:28)
--- NOTE | 2022-04-29 15:40 | ED ---
Abdominal Pain HPI - General Chief Complaint: Abdominal Pain Stated Complaint: body aches/pains, vomiting Time Seen by Provider: 04/29/22 15:22 Source: patient, RN notes reviewed Mode of arrival: ambulatory Limitations: no limitations - History of Present Illness Initial Comments: This is a 26-year-old male who presents to the emergency department with chest pain and abdominal pain. States that 4 days ago he developed pain in the chest and difficulty breathing. 3 days ago, he then began to develop a diffuse abdominal pain with associated nausea and vomiting. Denies any changes in bowel habits or urination. Denies any fevers, chills, sore throat, cough, palpitations, diarrhea, back pain, or headaches. MD Complaint: abdominal pain Onset/Timin -: days(s) Location: diffuse Associated Symptoms: nausea, vomiting - Related Data Previous Rx's Medication Instructions Recorded Famotidine 40 mg PO Q24H 14 Days #14 tablet 04/29/22 Metoclopramide [Reglan] 10 mg PO Q6H PRN #15 tab 04/29/22 Ondansetron Odt [Zofran Odt] 4 mg PO Q8HR PRN #15 tab 04/29/22 Allergies Allergy/AdvReac Type Severity Reaction Status Date / Time No Known Allergies Allergy Verified 04/29/22 17:19 Review of Systems ROS Statement: Those systems with pertinent positive or pertinent negative responses have been documented in the HPI. ROS Other: All systems not noted in ROS Statement are negative. Past Medical History Past Medical History: Asthma, Hypertension, Pneumonia Additional Past Medical History / Comment(s): Pt states he has had HTN in the past and was on HTN medication but was taken off of it and is monitoring his blood pressure. History of Any Multi-Drug Resistant Organisms: None Reported Past Surgical History: Hernia Repair Additional Past Surgical History / Comment(s): Umbilical hernia as a child Past Anesthesia/Blood Transfusion Reactions: No Reported Reaction Past Psychological History: No Psychological Hx Reported Smoking Status: Current every day smoker Past Alcohol Use History: None Reported Past Drug Use History: Marijuana - Past Family History Father Family Medical History: Diabetes Mellitus, Hypertension Additional Family Medical History / Comment(s): Father had bariatric surgery Mother Additional Family Medical History / Comment(s): Vision issues. General Exam Limitations: no limitations General appearance: alert, in distress Head exam: Present: atraumatic, normocephalic, normal inspection Respiratory exam: Present: normal lung sounds bilaterally. Absent: respiratory distress, wheezes, rales, rhonchi, stridor Cardiovascular Exam: Present: regular rate, normal rhythm, normal heart sounds. Absent: systolic murmur, diastolic murmur, rubs, gallop, clicks GI/Abdominal exam: Present: soft, tenderness (diffuse), guarding, normal bowel sounds. Absent: distended Neurological exam: Present: alert, oriented X3, CN II-XII intact Psychiatric exam: Present: normal affect, normal mood Skin exam: Present: warm, dry, intact, normal color. Absent: rash Course Vital Signs 04/29/22 04/29/22 04/29/22 12:38 16:06 18:05 Temperature 98.3 F Pulse Rate 100 87 78 Respiratory 20 16 18 Rate Blood Pressure 156/99 130/86 O2 Sat by Pulse 98 99 99 Oximetry 04/29/22 04/29/22 04/29/22 18:39 18:58 20:34 Temperature 98.6 F Pulse Rate 95 77 86 Respiratory 17 17 18 Rate Blood Pressure 156/106 148/92 138/82 O2 Sat by Pulse 98 97 98 Oximetry Medical Decision Making - Medical Decision Making This is a 26-year-old male who presents to the emergency department for abdomina l pain. Lab work was nonactionable. Due to the patient's tenderness, computed tomography scan of the abdomen and pelvis was obtained. This revealed no acute intra-abdominal process to explain the patient's symptoms. Initially given a liter bolus with Toradol, Zofran, and morphine. States that this moderately improved his symptoms, however he still felt very ill. He was subsequently given a dose of Dilaudid, Protonix, and Reglan along with a another liter bolus of normal saline. Patient did note improvement in symptoms afterwards and felt stable for discharge home. Prescription for Zofran and Reglan provided to be taken as needed for nausea and vomiting. He was also given a two-week prescription for Pepcid to take daily. Return precautions reviewed in depth, the patient is instructed to return to the emergency department with any new, worsening, or concerning symptoms. Patient verbalized understanding. This case was discussed in detail with the attending ED physician. Presentation, findings, and treatment plan discussed in detail as well. - Lab Data Result diagrams: 04/29/22 12:46 04/29/22 12:46 Lab Results 04/29/22 04/29/22 04/29/22 Range/Units 12:46 12:46 15:49 WBC 9.4 (3.8-10.6) k/uL RBC 5.49 (4.30-5.90) m/uL Hgb 17.1 (13.0-17.5) gm/dL Hct 47.4 (39.0-53.0) % MCV 86.2 (80.0-100.0) fL MCH 31.1 (25.0-35.0) pg MCHC 36.1 (31.0-37.0) g/dL RDW 12.6 (11.5-15.5) % Plt Count 317 (150-450) k/uL MPV 8.5 Neutrophils % 75 % Lymphocytes % 15 % Monocytes % 8 % Eosinophils % 1 % Basophils % 1 % Neutrophils # 7.0 (1.3-7.7) k/uL Lymphocytes # 1.4 (1.0-4.8) k/uL Monocytes # 0.7 (0-1.0) k/uL Eosinophils # 0.1 (0-0.7) k/uL Basophils # 0.0 (0-0.2) k/uL D-Dimer (<0.60) mg/L FEU Sodium 140 (137-145) mmol/L Potassium 3.8 (3.5-5.1) mmol/L Chloride 101 (98-107) mmol/L Carbon Dioxide 19 L (22-30) mmol/L Anion Gap 20 mmol/L BUN 12 (9-20) mg/dL Creatinine 1.18 (0.66-1.25) mg/dL Est GFR (CKD-EPI)AfAm >90 (>60 ml/min/1.73 sqM) Est GFR (CKD-EPI)NonAf 84 (>60 ml/min/1.73 sqM) Glucose 129 H (74-99) mg/dL Calcium 10.3 H (8.4-10.2) mg/dL Total Bilirubin 0.6 (0.2-1.3) mg/dL AST 28 (17-59) U/L ALT 25 (4-49) U/L Alkaline Phosphatase 70 (38-126) U/L Troponin I (0.000-0.034) ng/mL Total Protein 9.0 H (6.3-8.2) g/dL Albumin 5.6 H (3.5-5.0) g/dL Amylase 205 H (30-110) U/L Lipase 73 (23-300) U/L Urine Color Yellow Urine Appearance Cloudy (Clear) Urine pH 6.0 (5.0-8.0) Ur Specific Onyx 1.033 (1.001-1.035) Urine Protein 2+ H (Negative) Urine Glucose (UA) Negative (Negative) Urine Ketones 1+ H (Negative) Urine Blood Negative (Negative) Urine Nitrite Negative (Negative) Urine Bilirubin 1+ H (Negative) Urine Urobilinogen <2.0 (<2.0) mg/dL Ur Leukocyte Esterase Negative (Negative) Urine RBC 1 (0-5) /hpf Urine WBC 4 (0-5) /hpf Ur Squamous Epith Cells 1 (0-4) /hpf Hyaline Casts 13 H (0-2) /lpf Urine Mucus Many H (None) /hpf Urine Opiates Screen (NotDetected) Ur Oxycodone Screen (NotDetected) Urine Methadone Screen (NotDetected) Ur Propoxyphene Screen (NotDetected) Ur Barbiturates Screen (NotDetected) U Tricyclic Antidepress (NotDetected) Ur Phencyclidine Scrn (NotDetected) Ur Amphetamines Screen (NotDetected) U Methamphetamines Scrn (NotDetected) U Benzodiazepines Scrn (NotDetected) Urine Cocaine Screen (NotDetected) U Marijuana (THC) Screen (NotDetected) Coronavirus (PCR) (Not Detectd) 04/29/22 04/29/22 04/29/22 Range/Units 15:49 15:49 15:55 WBC (3.8-10.6) k/uL RBC (4.30-5.90) m/uL Hgb (13.0-17.5) gm/dL Hct (39.0-53.0) % MCV (80.0-100.0) fL MCH (25.0-35.0) pg MCHC (31.0-37.0) g/dL RDW (11.5-15.5) % Plt Count (150-450) k/uL MPV Neutrophils % % Lymphocytes % % Monocytes % % Eosinophils % % Basophils % % Neutrophils # (1.3-7.7) k/uL Lymphocytes # (1.0-4.8) k/uL Monocytes # (0-1.0) k/uL Eosinophils # (0-0.7) k/uL Basophils # (0-0.2) k/uL D-Dimer 0.18 (<0.60) mg/L FEU Sodium (137-145) mmol/L Potassium (3.5-5.1) mmol/L Chloride (98-107) mmol/L Carbon Dioxide (22-30) mmol/L Anion Gap mmol/L BUN (9-20) mg/dL Creatinine (0.66-1.25) mg/dL Est GFR (CKD-EPI)AfAm (>60 ml/min/1.73 sqM) Est GFR (CKD-EPI)NonAf (>60 ml/min/1.73 sqM) Glucose (74-99) mg/dL Calcium (8.4-10.2) mg/dL Total Bilirubin (0.2-1.3) mg/dL AST (17-59) U/L ALT (4-49) U/L Alkaline Phosphatase (38-126) U/L Troponin I (0.000-0.034) ng/mL Total Protein (6.3-8.2) g/dL Albumin (3.5-5.0) g/dL Amylase (30-110) U/L Lipase (23-300) U/L Urine Color Urine Appearance (Clear) Urine pH (5.0-8.0) Ur Specific Onyx (1.001-1.035) Urine Protein (Negative) Urine Glucose (UA) (Negative) Urine Ketones (Negative) Urine Blood (Negative) Urine Nitrite (Negative) Urine Bilirubin (Negative) Urine Urobilinogen (<2.0) mg/dL Ur Leukocyte Esterase (Negative) Urine RBC (0-5) /hpf Urine WBC (0-5) /hpf Ur Squamous Epith Cells (0-4) /hpf Hyaline Casts (0-2) /lpf Urine Mucus (None) /hpf Urine Opiates Screen Not Detected (NotDetected) Ur Oxycodone Screen Not Detected (NotDetected) Urine Methadone Screen Not Detected (NotDetected) Ur Propoxyphene Screen Not Detected (NotDetected) Ur Barbiturates Screen Not Detected (NotDetected) U Tricyclic Antidepress Not Detected (NotDetected) Ur Phencyclidine Scrn Not Detected (NotDetected) Ur Amphetamines Screen Not Detected (NotDetected) U Methamphetamines Scrn Not Detected (NotDetected) U Benzodiazepines Scrn Not Detected (NotDetected) Urine Cocaine Screen Not Detected (NotDetected) U Marijuana (THC) Screen Detected H (NotDetected) Coronavirus (PCR) Not Detected (Not Detectd) 04/29/22 Range/Units 16:35 WBC (3.8-10.6) k/uL RBC (4.30-5.90) m/uL Hgb (13.0-17.5) gm/dL Hct (39.0-53.0) % MCV (80.0-100.0) fL MCH (25.0-35.0) pg MCHC (31.0-37.0) g/dL RDW (11.5-15.5) % Plt Count (150-450) k/uL MPV Neutrophils % % Lymphocytes % % Monocytes % % Eosinophils % % Basophils % % Neutrophils # (1.3-7.7) k/uL Lymphocytes # (1.0-4.8) k/uL Monocytes # (0-1.0) k/uL Eosinophils # (0-0.7) k/uL Basophils # (0-0.2) k/uL D-Dimer (<0.60) mg/L FEU Sodium (137-145) mmol/L Potassium (3.5-5.1) mmol/L Chloride (98-107) mmol/L Carbon Dioxide (22-30) mmol/L Anion Gap mmol/L BUN (9-20) mg/dL Creatinine (0.66-1.25) mg/dL Est GFR (CKD-EPI)AfAm (>60 ml/min/1.73 sqM) Est GFR (CKD-EPI)NonAf (>60 ml/min/1.73 sqM) Glucose (74-99) mg/dL Calcium (8.4-10.2) mg/dL Total Bilirubin (0.2-1.3) mg/dL AST (17-59) U/L ALT (4-49) U/L Alkaline Phosphatase (38-126) U/L Troponin I <0.012 (0.000-0.034) ng/mL Total Protein (6.3-8.2) g/dL Albumin (3.5-5.0) g/dL Amylase (30-110) U/L Lipase (23-300) U/L Urine Color Urine Appearance (Clear) Urine pH (5.0-8.0) Ur Specific Onyx (1.001-1.035) Urine Protein (Negative) Urine Glucose (UA) (Negative) Urine Ketones (Negative) Urine Blood (Negative) Urine Nitrite (Negative) Urine Bilirubin (Negative) Urine Urobilinogen (<2.0) mg/dL Ur Leukocyte Esterase (Negative) Urine RBC (0-5) /hpf Urine WBC (0-5) /hpf Ur Squamous Epith Cells (0-4) /hpf Hyaline Casts (0-2) /lpf Urine Mucus (None) /hpf Urine Opiates Screen (NotDetected) Ur Oxycodone Screen (NotDetected) Urine Methadone Screen (NotDetected) Ur Propoxyphene Screen (NotDetected) Ur Barbiturates Screen (NotDetected) U Tricyclic Antidepress (NotDetected) Ur Phencyclidine Scrn (NotDetected) Ur Amphetamines Screen (NotDetected) U Methamphetamines Scrn (NotDetected) U Benzodiazepines Scrn (NotDetected) Urine Cocaine Screen (NotDetected) U Marijuana (THC) Screen (NotDetected) Coronavirus (PCR) (Not Detectd) - Radiology Data Radiology results: report reviewed, image reviewed Disposition Clinical Impression: Abdominal pain, Nausea and vomiting Disposition: HOME SELF-CARE Instructions (If sedation given, give patient instructions): Acute Nausea and Vomiting (ED), Abdominal Pain (ED) Additional Instructions: Return to the emergency department with any new, worsening, or concerning symptoms. Alternate with the Zofran and Reglan as needed for any nausea and vomiting. Take the Pepcid daily for the next 2 weeks, and limit your intake of spicy and citrusy foods. Follow up with your primary care provider in 1-2 days. Prescriptions: Famotidine 40 mg PO Q24H 14 Days #14 tablet Metoclopramide [Reglan] 10 mg PO Q6H PRN #15 tab PRN Reason: Nausea And Vomiting Ondansetron Odt [Zofran Odt] 4 mg PO Q8HR PRN #15 tab PRN Reason: Nausea And Vomiting Is patient prescribed a controlled substance at d/c from ED?: No Referrals: None,Stated [Primary Care Provider] - 1-2 days
[2022-04-29] MEDS ORDERED: ONDANSETRON 4 MG/2 ML VIAL IVP STA (16:00)
[2022-04-29 16:12] LABS: Appearance,Urine Cloudy (Clear); Bilirubin,Urine 1+ (Negative); Blood,Urine Negative (Negative); Color,Urine Yellow; Glucose,Urine (UA) Negative (Negative); Hyaline Casts,Urine 13 /lpf (0-2); Ketones,Urine 1+ (Negative); Leukocyte Esterase,Urine Negative (Negative); Mucus,Urine Many /hpf; Nitrite,Urine Negative (Negative); Protein,Urine 2+ (Negative); RBC,Urine 1 /hpf (0-5); Specific Gravity,Urine 1.033 (1.001-1.035); Squamous Epithelial Cell,Urine 1 /hpf (0-4); Urobilinogen,Urine <2.0 mg/dL (<2.0); WBC,Urine 4 /hpf (0-5)
[2022-04-29 16:19] LABS: Amphetamine Screen,Urine Not Detected (NotDetected); Barbiturate Screen,Urine Not Detected (NotDetected); Benzodiazepines Screen,Urine Not Detected (NotDetected); Cocaine Screen,Urine Not Detected (NotDetected); Methadone Screen, Urine Not Detected (NotDetected); Opiate Screen,Urine Not Detected (NotDetected); Oxycodone Screen, Urine Not Detected (NotDetected); Phencyclidine Screen,Urine Not Detected (NotDetected); Tricyclic Antidepressant,Urine Not Detected (NotDetected); Urn Cannabinoid Scrn Detected (NotDetected)
--- NOTE | 2022-04-29 17:23 | CT ---
EXAMINATION TYPE: CT abdomen pelvis w con CT DLP: 898.3 mGycm, Automated exposure control for dose reduction was used. DATE OF EXAM: 04/29/2022 4:56 PM COMPARISON: CT abdomen pelvis most recent from 11/04/2021. CLINICAL INDICATION:Male, 26 years old with history of Abdominal pain, acute, nonlocalized; Abdominal pain and vomiting TECHNIQUE: Axial CT of the abdomen and pelvis. Sagittal and coronal reformats were created on a [employer] workstation. Contrast used:100 mL of Isovue 370 with IV Contrast, Oral contrast used: without Oral Contrast FINDINGS: LOWER CHEST: Unremarkable ABDOMEN LIVER: Unremarkable GALLBLADDER AND BILE DUCTS: Unremarkable. PANCREAS: Unremarkable. SPLEEN: Unremarkable. ADRENAL GLANDS: Unremarkable. KIDNEYS AND URETERS: No evidence of hydronephrosis or renal calculus. The ureters are unremarkable. PELVIS BLADDER: Circumferential bladder wall thickening of 3 mm. The bladder is nondistended however. REPRODUCTIVE: Unremarkable. ABDOMEN & PELVIS STOMACH AND BOWEL: No evidence of bowel obstruction. Appendix is normal. PERITONEUM: No evidence of pneumoperitoneum or free fluid. VASCULATURE: No evidence of aortic aneurysm. MUSCULOSKELETAL: No acute osseous abnormalities LYMPH NODES: No gross evidence for lymphadenopathy. SOFT TISSUE/ABDOMINAL WALL: Unremarkable IMPRESSION: 1. No definitive evidence for acute abdominal process. 2. Urinary bladder wall thickening likely secondary to underdistention. Correlate with urinalysis if there is concern for cystitis.
[2022-04-29] MEDS ORDERED: METOCLOPRAMIDE 5 MG/ML 2 ML VIAL IVP STA (18:11)
[2022-04-29] MEDS ORDERED: PANTOPRAZOLE 40 MG/10 ML VIAL IVP STA (18:11)
[2022-04-29] MEDS ORDERED: HYDROmorphone 0.5 MG/0.5 ML SYRINGE IVP STA (18:11)
[2022-04-29 18:40] VITALS: TEMP 98.6
[2022-04-29] MEDS ORDERED: ONDANSETRON 4 MG ODT STARTER PACK 2 TAB BTL PO STA (19:44)
[2022-04-29 20:35] VITALS: BP 138/82; PULSE 86; RESP 18
== END 2022-04-29 20:34 | disposition home or self-care (01) ==
LOC: EC 11:25
DX: R10.9 Unspecified abdominal pain (principal); J45.909 Unspecified asthma, uncomplicated; I10 Essential (primary) hypertension; J18.9 Pneumonia, unspecified organism; F17.200 Nicotine dependence, unspecified, uncomplicated; F12.90 Cannabis use, unspecified, uncomplicated; Z20.822 Contact with and (suspected) exposure to COVID-19; Z79.899 Other long term (current) drug therapy
CPT/HCPCS: 36415; 85379; 80053; 82150; 83690; 84484; 85025; 81001; 80306; 87635; 74177; 99285; 96374; 96375 ×5; 96361 ×4; J2765; J2405; J2270; J1885; S0119; C9113; J1170; Q9967

== ENCOUNTER 2022-10-22 20:29 | Emergency (ER) | payer OTHER ==
[2022-10-22] MEDS ORDERED: SODIUM CHLORIDE 0.9% 2,000 ML IV STA (21:35)
[2022-10-22] MEDS ORDERED: ONDANSETRON 4 MG/2 ML VIAL IVP STA (21:35)
[2022-10-22 21:36] VITALS: TEMP 99.9
--- NOTE | 2022-10-22 21:36 | ED ---
General Adult HPI - General Chief complaint: Dizziness Stated complaint: Tachycardia,Vomitting,Dehydration Time Seen by Provider: 10/22/22 20:40 Source: patient Mode of arrival: ambulatory Limitations: no limitations - History of Present Illness Initial comments: 26-year-old male who presents to emergency room reporting nausea, vomiting and left flank pain. States that he has been throwing up for the past couple of days and unable to hold down anything to eat or drink. He has vomited so much that it is caused him to have some abdominal wall pain especially on the left side. He has not taken anything for the vomiting at home. No sick contacts. Admits to chills with no recorded fever. He denies hematemesis. No changes in his urination. No black or bloody stools. No constipation or diarrhea. No chest pain or trouble breathing. Admits to mild nonproductive cough. Urgent care who recommended that he come in the emergency department for further workup. They did complete a Covid test which was negative. - Related Data Previous Rx's Medication Instructions Recorded Famotidine 40 mg PO Q24H 14 Days #14 tablet 04/29/22 Metoclopramide [Reglan] 10 mg PO Q6H PRN #15 tab 04/29/22 Ondansetron Odt [Zofran Odt] 4 mg PO Q8HR PRN #15 tab 04/29/22 Allergies Allergy/AdvReac Type Severity Reaction Status Date / Time No Known Allergies Allergy Verified 10/22/22 20:40 Review of Systems ROS Statement: Those systems with pertinent positive or pertinent negative responses have been documented in the HPI. ROS Other: All systems not noted in ROS Statement are negative. Past Medical History Past Medical History: Asthma, Hypertension, Pneumonia Additional Past Medical History / Comment(s): Pt states he has had HTN in the past and was on HTN medication but was taken off of it and is monitoring his blood pressure. History of Any Multi-Drug Resistant Organisms: None Reported Past Surgical History: Hernia Repair Additional Past Surgical History / Comment(s): Umbilical hernia as a child Past Anesthesia/Blood Transfusion Reactions: No Reported Reaction Past Psychological History: No Psychological Hx Reported Smoking Status: Current every day smoker Past Alcohol Use History: None Reported Past Drug Use History: Marijuana - Past Family History Father Family Medical History: Diabetes Mellitus, Hypertension Additional Family Medical History / Comment(s): Father had bariatric surgery Mother Additional Family Medical History / Comment(s): Vision issues. General Exam Limitations: no limitations General appearance: alert, in no apparent distress Head exam: Present: atraumatic, normocephalic, normal inspection Eye exam: Present: normal appearance, PERRL, EOMI. Absent: scleral icterus, con junctival injection, periorbital swelling ENT exam: Present: normal exam, mucous membranes moist Neck exam: Present: normal inspection. Absent: tenderness, meningismus, lymphadenopathy Respiratory exam: Present: normal lung sounds bilaterally. Absent: respiratory distress, wheezes, rales, rhonchi, stridor Cardiovascular Exam: Present: normal rhythm, tachycardia, normal heart sounds. Absent: systolic murmur, diastolic murmur, rubs, gallop, clicks GI/Abdominal exam: Present: soft, normal bowel sounds. Absent: distended, tenderness, guarding, rebound, rigid Extremities exam: Present: normal inspection, full ROM, normal capillary refill. Absent: tenderness, pedal edema, joint swelling, calf tenderness Back exam: Present: CVA tenderness (L) Neurological exam: Present: alert, oriented X3, CN II-XII intact Psychiatric exam: Present: normal affect, normal mood Skin exam: Present: warm, dry, intact, normal color. Absent: rash Course Vital Signs 10/22/22 10/22/22 10/22/22 20:40 21:26 21:35 Temperature 99.3 F 99.9 F H Pulse Rate 124 H 73 84 Respiratory 18 11 L 17 Rate Blood Pressure 132/92 147/107 O2 Sat by Pulse 98 97 Oximetry 10/22/22 10/22/22 10/22/22 21:45 22:30 22:45 Temperature Pulse Rate 80 96 72 Respiratory 18 22 17 Rate Blood Pressure 149/107 147/92 147/92 O2 Sat by Pulse 98 99 96 Oximetry 10/22/22 10/22/22 10/23/22 23:00 23:30 00:00 Temperature Pulse Rate 78 88 83 Respiratory 14 16 15 Rate Blood Pressure 147/92 151/97 146/94 O2 Sat by Pulse 96 96 95 Oximetry 10/23/22 10/23/22 00:30 00:37 Temperature Pulse Rate 67 69 Respiratory 16 11 L Rate Blood Pressure 154/102 148/94 O2 Sat by Pulse 97 95 Oximetry EKG Findings - EKG Comments: EKG Findings:: EKG demonstrates sinus rhythm with rate of 85. VT interval 150. QRS 88. QTC of 395. Right atrial enlargement. No acute ST segment elevations or depressions Medical Decision Making - Medical Decision Making Was pt. sent in by a medical professional or institution ([facility], [facility], urgent care, hospital, or fci...) When possible be specific @ -Urgent care Did you speak to anyone other than the patient for history (EMS, parent, family, police, friend...)? What history was obtained from this source @ -No Did you review nursing and triage notes (agree or disagree)? Why? @ -I reviewed and agree with nursing and triage notes Were old charts reviewed (outside hosp., previous admission, EMS record, old EKG, old radiological studies, urgent care reports/EKG's, fci records)? Report findings @ -No old charts were reviewed Differential Diagnosis (chest pain, altered mental status, abdominal pain women, abdominal pain men, vaginal bleeding, weakness, fever, dyspnea, syncope, headache, dizziness, GI bleed, back pain, seizure, CVA, palpatations, mental health, musculoskeletal)? @ -acs, pleurisy, chest wall pain, nstemi, pe, gastroenteritis, influenza, covid EKG interpreted by me (3pts min.). @ -yes X-rays interpreted by me (1pt min.). @ -yes CT interpreted by me (1pt min.). @ -yes U/S interpreted by me (1pt. min.). @ -None done What testing was considered but not performed or refused? (CT, X-rays, U/S, labs)? Why? @ -None What meds were considered but not given or refused? Why? @ -None Did you discuss the management of the patient with other professionals (professionals i.e. [facility], [employer] [facility], lab, RT, psych nurse, social work instructor, freight air brake fitter, teacher, cavalry officer, case resolution specialist)? Give summary @ -No Was smoking cessation discussed for >3mins.? @ -No Was critical care preformed (if so, how long)? @ -No Were there social determinants of health that impacted care today? How? (Homelessness, low income, unemployed, alcoholism, drug addiction, transportation, low edu. Level, literacy, decrease access to med. care, retirement, rehab)? @ -No Was there de-escalation of care discussed even if they declined (Discuss DNR or withdrawal of care, Hospice)? DNR status @ -No What co-morbidities impacted this encounter? (DM, HTN, Smoking, COPD, CAD, Canc er, CVA, ARF, Chemo, Hep., AIDS, mental health diagnosis, sleep apnea, morbid obesity)? @ -None Was patient admitted / discharged? Hospital course, mention meds given and route, prescriptions, significant lab abnormalities, going to OR and other pertinent info. @ -Upon arrival patient was placed into room 4. There is physical exam is performed. IV access established. He is given 4 mg of Zofran for nausea. Laboratory studies are conducted and reviewed. Physical for CT of his abdomen and pelvis which demonstrates no acute findings. Patient's has nausea after his CAT scan and therefore is given a dose of Compazine and Benadryl. He does have improvement in his nausea. Results are discussed with the patient patient feels stable for discharge. He'll be given a Zofran starter pack. Instructed to take medications as directed. Follow up with Dr. George is return for any new or worsening symptoms for patient was group will plan discharge home in stable condition Undiagnosed new problem with uncertain prognosis? @ -Yes Drug Therapy requiring intensive monitoring for toxicity (Heparin, Nitro, Insulin, Cardizem)? @ -No Were any procedures done? @ -No Diagnosis/symptom? @ -acute nausea and vomiting, left flank pain Acute, or Chronic, or Acute on Chronic? @ -acute Uncomplicated (without systemic symptoms) or Complicated (systemic symptoms)? @ -complicated Side effects of treatment? @ -akathesias Exacerbation, Progression, or Severe Exacerbation? @ -No Poses a threat to life or bodily function? How? (Chest pain, [place], [place], pneumonia, PE, COPD, DKA, ARF, appy, cholecystitis, CVA, Diverticulitis, Homicidal, Suicidal, threat to staff... and all critical care pts) @ -No - Lab Data Result diagrams: 10/22/22 21:48 10/22/22 21:48 Lab Results 10/22/22 10/22/22 10/22/22 Range/Units 21:48 21:48 21:48 WBC 5.8 (3.8-10.6) k/uL RBC 5.32 (4.30-5.90) m/uL Hgb 16.0 (13.0-17.5) gm/dL Hct 46.0 (39.0-53.0) % MCV 86.4 (80.0-100.0) fL MCH 30.0 (25.0-35.0) pg MCHC 34.7 (31.0-37.0) g/dL RDW 12.2 (11.5-15.5) % Plt Count 229 (150-450) k/uL MPV 8.0 Neutrophils % 51 % Lymphocytes % 36 % Monocytes % 9 % Eosinophils % 1 % Basophils % 1 % Neutrophils # 2.9 (1.3-7.7) k/uL Lymphocytes # 2.1 (1.0-4.8) k/uL Monocytes # 0.5 (0-1.0) k/uL Eosinophils # 0.1 (0-0.7) k/uL Basophils # 0.1 (0-0.2) k/uL Sodium 140 (137-145) mmol/L Potassium 3.8 (3.5-5.1) mmol/L Chloride 104 (98-107) mmol/L Carbon Dioxide 25 (22-30) mmol/L Anion Gap 11 mmol/L BUN 11 (9-20) mg/dL Creatinine 1.08 (0.66-1.25) mg/dL Est GFR (CKD-EPI)AfAm >90 (>60 ml/min/1.73 sqM) Est GFR (CKD-EPI)NonAf >90 (>60 ml/min/1.73 sqM) Glucose 90 (74-99) mg/dL Plasma Lactic Acid [place] (0.7-2.0) mmol/L Calcium 9.3 (8.4-10.2) mg/dL Total Bilirubin 1.1 (0.2-1.3) mg/dL AST 25 (17-59) U/L ALT 23 (4-49) U/L Alkaline Phosphatase 61 (38-126) U/L Total Protein 7.6 (6.3-8.2) g/dL Albumin 4.8 (3.5-5.0) g/dL Lipase 64 (23-300) U/L Urine Color Yellow Urine Appearance Clear (Clear) Urine pH 5.5 (5.0-8.0) Ur Specific [place] 1.017 (1.001-1.035) Urine Protein Trace H (Negative) Urine Glucose (UA) Negative (Negative) Urine Ketones 2+ H (Negative) Urine Blood Negative (Negative) Urine Nitrite Negative (Negative) Urine Bilirubin Negative (Negative) Urine Urobilinogen <2.0 (<2.0) mg/dL Ur Leukocyte Esterase Negative (Negative) Influenza Type A (PCR) (Not Detectd) Influenza Type B (PCR) (Not Detectd) RSV (PCR) (Not Detectd) SARS-CoV-2 (PCR) (Not Detectd) 10/22/22 10/22/22 Range/Units 21:48 21:48 WBC (3.8-10.6) k/uL RBC (4.30-5.90) m/uL Hgb (13.0-17.5) gm/dL Hct (39.0-53.0) % MCV (80.0-100.0) fL MCH (25.0-35.0) pg MCHC (31.0-37.0) g/dL RDW (11.5-15.5) % Plt Count (150-450) k/uL MPV Neutrophils % % Lymphocytes % % Monocytes % % Eosinophils % % Basophils % % Neutrophils # (1.3-7.7) k/uL Lymphocytes # (1.0-4.8) k/uL Monocytes # (0-1.0) k/uL Eosinophils # (0-0.7) k/uL Basophils # (0-0.2) k/uL Sodium (137-145) mmol/L Potassium (3.5-5.1) mmol/L Chloride (98-107) mmol/L Carbon Dioxide (22-30) mmol/L Anion Gap mmol/L BUN (9-20) mg/dL Creatinine (0.66-1.25) mg/dL Est GFR (CKD-EPI)AfAm (>60 ml/min/1.73 sqM) Est GFR (CKD-EPI)NonAf (>60 ml/min/1.73 sqM) Glucose (74-99) mg/dL Plasma Lactic Acid [place] 1.0 (0.7-2.0) mmol/L Calcium (8.4-10.2) mg/dL Total Bilirubin (0.2-1.3) mg/dL AST (17-59) U/L ALT (4-49) U/L Alkaline Phosphatase (38-126) U/L Total Protein (6.3-8.2) g/dL Albumin (3.5-5.0) g/dL Lipase (23-300) U/L Urine Color Urine Appearance (Clear) Urine pH (5.0-8.0) Ur Specific [place] (1.001-1.035) Urine Protein (Negative) Urine Glucose (UA) (Negative) Urine Ketones (Negative) Urine Blood (Negative) Urine Nitrite (Negative) Urine Bilirubin (Negative) Urine Urobilinogen (<2.0) mg/dL Ur Leukocyte Esterase (Negative) Influenza Type A (PCR) Not Detected (Not Detectd) Influenza Type B (PCR) Not Detected (Not Detectd) RSV (PCR) Not Detected (Not Detectd) SARS-CoV-2 (PCR) Not Detected (Not Detectd) Disposition Clinical Impression: Nausea and vomiting Disposition: HOME SELF-CARE Condition: Stable Instructions (If sedation given, give patient instructions): Acute Nausea and Vomiting (ED) Additional Instructions: Please follow-up with your PCP in 2-4 days and return for any new or worsening symptoms. Is patient prescribed a controlled substance at d/c from ED?: No Referrals: None,Stated [Primary Care Provider] - 1-2 days Time of Disposition: 00:31
[2022-10-22 22:07] LABS: Basophils # (A) 0.1 k/uL (0-0.2); Basophils % (A) 1 %; Eosinophils # (A) 0.1 k/uL (0-0.7); Eosinophils % (A) 1 %; Lymphocytes # (A) 2.1 k/uL (1.0-4.8); Lymphocytes % (A) 36 %; MCHC 34.7 g/dL (31.0-37.0); MCV 86.4 fL (80.0-100.0); Monocytes # (A) 0.5 k/uL (0-1.0); Monocytes % (A) 9 %; Neutrophils # (A) 2.9 k/uL (1.3-7.7); Neutrophils % (A) 51 %; Platelet Count 229 k/uL (150-450); RBC 5.32 m/uL (4.30-5.90); RDW 12.2 % (11.5-15.5); WBC 5.8 k/uL (3.8-10.6)
[2022-10-22 22:12] LABS: Appearance,Urine Clear (Clear); Bilirubin,Urine Negative (Negative); Blood,Urine Negative (Negative); Color,Urine Yellow; Glucose,Urine (UA) Negative (Negative); Ketones,Urine 2+ (Negative); Leukocyte Esterase,Urine Negative (Negative); Nitrite,Urine Negative (Negative); PH, Urine 5.5 (5.0-8.0); Protein,Urine Trace (Negative); Specific Gravity,Urine 1.017 (1.001-1.035); Urobilinogen,Urine <2.0 mg/dL (<2.0)
[2022-10-22] MEDS ORDERED: PROCHLORPERAZINE INJ 10 MG/2 ML VIAL IVP STA (22:16)
[2022-10-22 22:19] LABS: ALT 23 U/L (4-49); AST 25 U/L (17-59); African American GFR (CKD) >90 (>60 ml/min/1.73 sqM); Albumin 4.8 g/dL (3.5-5.0); Alkaline Phosphatase 61 U/L (38-126); Anion Gap 11 mmol/L; Blood Urea Nitrogen 11 mg/dL (9-20); Calcium 9.3 mg/dL (8.4-10.2); Carbon Dioxide 25 mmol/L (22-30); Chloride 104 mmol/L (98-107); Glucose 90 mg/dL (74-99); Lipase 64 U/L (23-300); Non-African American GFR(CKD) >90 (>60 ml/min/1.73 sqM); Potassium 3.8 mmol/L (3.5-5.1); Sodium 140 mmol/L (137-145); Total Bilirubin 1.1 mg/dL (0.2-1.3); Total Protein 7.6 g/dL (6.3-8.2)
[2022-10-22] MEDS ORDERED: diphenhydrAMINE 50 MG/ML 1 ML VIAL IVP STA (22:33)
--- NOTE | 2022-10-22 23:56 | XR ---
EXAM: XR Chest, 2 Views CLINICAL HISTORY: ITS.REASON XR Reason: abdominal pain TECHNIQUE: Frontal and lateral views of the chest. COMPARISON: 11/05/20 FINDINGS: Lungs: No significant abnormality. No consolidation. Pleural space: No significant abnormality. No pneumothorax. Heart: No significant abnormality. No cardiomegaly. Mediastinum: No significant abnormality. Bones/joints: No acute abnormality. IMPRESSION: No acute cardiopulmonary process.
--- NOTE | 2022-10-23 00:01 | CT ---
EXAM: CT Abdomen and Pelvis With Intravenous Contrast CLINICAL HISTORY: ITS.REASON CT Reason: abdominal pain TECHNIQUE: Axial computed tomography images of the abdomen and pelvis with intravenous contrast. CTDI is 9.7 mGy and DLP is 578.2 mGy-cm. This CT exam was performed using one or more of the following dose reduction techniques: automated exposure control, adjustment of the mA and/or kV according to patient size, and/or use of iterative reconstruction technique. COMPARISON: 04/29/22 FINDINGS: Lung bases: No significant abnormality. ABDOMEN: Liver: No significant abnormality. Gallbladder and bile ducts: No significant abnormality. No calcified stones. Pancreas: No significant abnormality. Spleen: No significant abnormality. Adrenals: No significant abnormality. Kidneys and ureters: No significant abnormality. No hydronephrosis. Stomach and bowel: No significant abnormality. Bowel is nondilated. PELVIS: Appendix: No findings to suggest acute appendicitis. Bladder: No significant abnormality. Reproductive: Unremarkable as visualized. ABDOMEN and PELVIS: Intraperitoneal space: No significant abnormality. No free air. Bones/joints: No acute abnormality. Soft tissues: No significant abnormality. Vasculature: No significant abnormality. No abdominal aortic aneurysm. Lymph nodes: No significant abnormality. IMPRESSION: No acute CT findings in the abdomen or pelvis.
[2022-10-23] MEDS ORDERED: ONDANSETRON 4 MG ODT STARTER PACK 2 TAB BTL PO STA (00:29)
[2022-10-23 00:42] VITALS: BP 148/94; PULSE 69; RESP 11
== END 2022-10-23 00:42 | disposition home or self-care (01) ==
LOC: EC 20:29
DX: R11.2 Nausea with vomiting, unspecified (principal); I10 Essential (primary) hypertension; J45.909 Unspecified asthma, uncomplicated; F17.200 Nicotine dependence, unspecified, uncomplicated; F12.90 Cannabis use, unspecified, uncomplicated; Z20.822 Contact with and (suspected) exposure to COVID-19; Z79.899 Other long term (current) drug therapy
CPT/HCPCS: 36415; 93005; 80053; 83605; 83690; 85025; 81003; 87636; 71046; 74177; 99285; 96374; 96375 ×2; 96361 ×2; J1200; J0780; J2405; S0119; Q9967

== ENCOUNTER 2023-01-10 00:55 | Emergency (ER) | payer OTHER ==
--- NOTE | 2023-01-10 01:57 | ED ---
Chest Pain HPI - General Chief Complaint: Chest Pain Stated Complaint: Chest Pain Time Seen by Provider: 01/10/23 01:45 Source: patient Mode of arrival: EMS - History of Present Illness Initial Comments: Patient is a 27-year-old male presents emergency department for chest pain. Patient reports consistent chest burning since 6:30 PM after work today. No precipitating, exacerbating, or alleviating factors.. No numbness or tingling. No shortness of breath. He has had multiple episodes of vomiting, nonbloody. He denies abdominal pain, fever. Patient has history of hypertension states he is not being treated for currently because he does not have a primary care provider. He does not check his blood pressure home. - Related Data Previous Rx's Medication Instructions Recorded Famotidine 40 mg PO Q24H 14 Days #14 tablet 04/29/22 Metoclopramide [Reglan] 10 mg PO Q6H PRN #15 tab 04/29/22 Ondansetron Odt [Zofran Odt] 4 mg PO Q8HR PRN #15 tab 04/29/22 Ondansetron Odt [Zofran Odt] 4 mg PO Q8HR PRN #10 tab 01/10/23 Allergies Allergy/AdvReac Type Severity Reaction Status Date / Time No Known Allergies Allergy Verified 10/22/22 20:40 Review of Systems ROS Statement: Those systems with pertinent positive or pertinent negative responses have been documented in the HPI. ROS Other: All systems not noted in ROS Statement are negative. Past Medical History Past Medical History: Asthma, Hypertension, Pneumonia Additional Past Medical History / Comment(s): Pt states he has had HTN in the past and was on HTN medication but was taken off of it and is monitoring his blood pressure. History of Any Multi-Drug Resistant Organisms: None Reported Past Surgical History: Hernia Repair Additional Past Surgical History / Comment(s): Umbilical hernia as a child Past Anesthesia/Blood Transfusion Reactions: No Reported Reaction Past Psychological History: No Psychological Hx Reported Smoking Status: Former smoker, Vaper Past Alcohol Use History: None Reported Past Drug Use History: Marijuana - Past Family History Father Family Medical History: Diabetes Mellitus, Hypertension Additional Family Medical History / Comment(s): Father had bariatric surgery Mother Additional Family Medical History / Comment(s): Vision issues. General Exam General appearance: alert, in no apparent distress Head exam: Present: atraumatic, normocephalic, normal inspection Respiratory exam: Present: normal lung sounds bilaterally. Absent: respiratory distress, wheezes, rales, rhonchi, stridor, chest wall tenderness, accessory muscle use Cardiovascular Exam: Present: regular rate, normal rhythm, normal heart sounds. Absent: systolic murmur, diastolic murmur, rubs, gallop, clicks Extremities exam: Present: normal inspection, full ROM, normal capillary refill Neurological exam: Present: alert, oriented X3, CN II-XII intact Psychiatric exam: Present: normal affect, normal mood Skin exam: Present: warm, dry, intact, normal color. Absent: rash Course Vital Signs 01/10/23 01/10/23 01/10/23 01:20 02:24 03:13 Temperature 98.8 F Pulse Rate 92 62 61 Respiratory 24 16 18 Rate Blood Pressure 164/104 177/114 171/114 O2 Sat by Pulse 98 98 100 Oximetry 01/10/23 01/10/23 04:37 05:04 Temperature 97.9 F Pulse Rate 63 Respiratory 18 Rate Blood Pressure 160/95 O2 Sat by Pulse 98 Oximetry Chest Pain MDM - MDM EKG taken at 1:16, interpreted by myself Sinus rhythm, no significant ST or T wave abnormality ventricular rate 65, MO interval 171, QRS duration 79, QTc 417 Was pt. sent in by a medical professional or institution ([facility], [facility], urgent care, hospital, or senior care...) When possible be specific @ -No Did you speak to anyone other than the patient for history (EMS, parent, family, police, friend...)? What history was obtained from this source @ -No Did you review nursing and triage notes (agree or disagree)? Why? @ -I reviewed and agree with nursing and triage notes Were old charts reviewed (outside hosp., previous admission, EMS record, old EKG, old radiological studies, urgent care reports/EKG's, senior care records)? Report findings @ -No old charts were reviewed Differential Diagnosis (chest pain, altered mental status, abdominal pain women, abdominal pain men, vaginal bleeding, weakness, fever, dyspnea, syncope, headache, dizziness, GI bleed, back pain, seizure, CVA, palpatations, mental health)? @ -Differential Chest Pain: Stable Angina, Unstable Angina, STEMI, NSTEMI Aortic Dissection, Pneumothorax, Musculoskeletal, Esophageal Spasm GERD, Cholecystitis, Pancreatitis, Zoster, this is not meant to be an all-inclusive list. EKG interpreted by me (3pts min.). @ -As above X-rays interpreted by me (1pt min.). @ -No acute cardiopulmonary process CT interpreted by me (1pt min.). @ -None done U/S interpreted by me (1pt. min.). @ -None done What testing was considered but not performed or refused? (CT, X-rays, U/S, labs)? Why? @ -None What meds were considered but not given or refused? Why? @ -None Did you discuss the management of the patient with other professionals (professionals i.e. , PA, CAR SALESPERSON, lab, RT, psych nurse, clinical social worker, dial marker, teacher, housing officer, outsole caser)? Give summary @ -No Was smoking cessation discussed for >3mins.? @ -No Was critical care preformed (if so, how long)? @ -No Were there social determinants of health that impacted care today? How? (Homelessness, low income, unemployed, alcoholism, drug addiction, transportation, low edu. Level, literacy, decrease access to med. care, correction, rehab)? @ -No Was there de-escalation of care discussed even if they declined (Discuss DNR or withdrawal of care, Hospice)? DNR status @ -No What co-morbidities impacted this encounter? (DM, HTN, Smoking, COPD, CAD, Cancer, CVA, ARF, Chemo, Hep., AIDS, mental health diagnosis, sleep apnea, morbid obesity)? @ -None Was patient admitted / discharged? Hospital course, mention meds given and route, prescriptions, significant lab abnormalities, going to OR and other pertinent info. @ -Patient presenting for chest pain.EKG shows no evidence of acute ischemia. Troponin is 0.018, which is similar to previous visits. There is hypokalemia at 3.1, likely related to vomiting. There is anion gap metabolic acidosis, carbon dioxide at 18, anion gap at 17, etiology unclear. Patient given pepcid, protonix, toradol, zofran with improvement of symptoms. His pain improved he continued to have nausea without further episodes of vomiting. He was given compazine which resolved nausea. Blood pressure remained elevated during visit in the 160-170s/100-110s. Patient was given a dose of hydralazine with improvement. Patient will be discharged as chest pain is atypical in nature, low risk factors for ACS, he is feeling better. We discussed the importance of establishing with primary care provider for management of blood pressure. Undiagnosed new problem with uncertain prognosis? @ -No Drug Therapy requiring intensive monitoring for toxicity (Heparin, Nitro, Insulin, Cardizem)? @ -No Were any procedures done? @ -No Diagnosis/symptom? @ atypical chest pain Acute, or Chronic, or Acute on Chronic? @ -acute Uncomplicated (without systemic symptoms) or Complicated (systemic symptoms)? @ -uncomplicated Side effects of treatment? @ -No] Exacerbation, Progression, or Severe Exacerbation? @ -[No] Poses a threat to life or bodily function? How? (Chest pain, [place], [place], pneumonia, PE, COPD, DKA, ARF, appy, cholecystitis, CVA, Diverticulitis, Homicidal, Suicidal, threat to staff... and all critical care pts) @ -No Dr. Yang is my attending Disposition Clinical Impression: Vomiting, Atypical chest pain Disposition: HOME SELF-CARE Condition: Good Instructions (If sedation given, give patient instructions): Chest Pain (ED) Additional Instructions: Take medication as directed. It is important to establish care with a primary care provider. You will need further evaluation of your blood pressure and repeat laboratory studies edge of potassium was low today. Return to the emergency department if you experience new, concerning, or worsening symptoms. Prescriptions: Ondansetron Odt [Zofran Odt] 4 mg PO Q8HR PRN #10 tab PRN Reason: Nausea Is patient prescribed a controlled substance at d/c from ED?: No Referrals: None,Stated [Primary Care Provider] - 1-2 days Forms: Area PCPs
[2023-01-10 02:06] LABS: ALT 18 U/L (4-49); AST 27 U/L (17-59); African American GFR (CKD) >90 (>60 ml/min/1.73 sqM); Albumin 4.3 g/dL (3.5-5.0); Alkaline Phosphatase 44 U/L (38-126); Anion Gap 17 mmol/L; Blood Urea Nitrogen 8 mg/dL (9-20); Calcium 8.8 mg/dL (8.4-10.2); Carbon Dioxide 18 mmol/L (22-30); Chloride 107 mmol/L (98-107); Glucose 121 mg/dL (74-99); Non-African American GFR(CKD) >90 (>60 ml/min/1.73 sqM); Potassium 3.1 mmol/L (3.5-5.1); Sodium 142 mmol/L (137-145); Total Bilirubin 0.8 mg/dL (0.2-1.3); Total Protein 6.6 g/dL (6.3-8.2)
[2023-01-10] MEDS ORDERED: KETOROLAC 15 MG/ML 1 ML VIAL IVP STA (02:09)
[2023-01-10] MEDS ORDERED: PANTOPRAZOLE 40 MG/10 ML VIAL IVP STA (02:09)
[2023-01-10] MEDS ORDERED: FAMOTIDINE 20 MG/2 ML VIAL IV STA (02:09)
[2023-01-10 02:14] LABS: INR 1.1 (<1.2); Partial Thromboplastin Time 22.4 sec (22.0-30.0); Prothrombin Time 11.3 sec (9.0-12.0)
[2023-01-10 02:24] LABS: Basophils % (A) 0 %; Eosinophils # (A) 0.1 k/uL (0-0.7); Eosinophils % (A) 1 %; HCT 45.4 % (39.0-53.0); HGB 15.4 gm/dL (13.0-17.5); Lymphocytes # (A) 1.2 k/uL (1.0-4.8); Lymphocytes % (A) 17 %; MCH 30.5 pg (25.0-35.0); MCHC 33.9 g/dL (31.0-37.0); MCV 90.1 fL (80.0-100.0); Mean Platelet Volume 9.1; Monocytes # (A) 0.4 k/uL (0-1.0); Monocytes % (A) 5 %; Neutrophils # (A) 5.3 k/uL (1.3-7.7); Neutrophils % (A) 76 %; Platelet Count 198 k/uL (150-450); RBC 5.03 m/uL (4.30-5.90); RDW 12.9 % (11.5-15.5)
[2023-01-10] MEDS ORDERED: SODIUM CHLORIDE 0.9% 1,000 ML IV STA (02:25)
[2023-01-10] MEDS ORDERED: ONDANSETRON 4 MG/2 ML VIAL IVP STA (02:25)
[2023-01-10] MEDS ORDERED: POTASSIUM CHLORIDE ER 20 MEQ TAB.ER PO STA (02:26)
[2023-01-10 03:14] VITALS: RESP 18
[2023-01-10] MEDS ORDERED: PROCHLORPERAZINE INJ 10 MG/2 ML VIAL IVP STA (03:49)
[2023-01-10] MEDS ORDERED: hydrALAZINE HCL 20 MG/ML 1 ML VIAL IVP STA (03:55)
--- NOTE | 2023-01-10 04:23 | XR ---
EXAM: XR Chest, 2 Views CLINICAL HISTORY: ITS.REASON XR Reason: pain TECHNIQUE: Frontal and lateral views of the chest. COMPARISON: No relevant prior studies available. FINDINGS: Lungs: No consolidation or mass. Pleural space: No effusion. Heart: No cardiomegaly. Bones/joints: No acute findings. IMPRESSION: No acute cardiopulmonary process.
[2023-01-10 04:37] VITALS: BP 160/95
[2023-01-10 05:05] VITALS: PULSE 63; TEMP 97.9
== END 2023-01-10 05:05 | disposition home or self-care (01) ==
LOC: EC 00:55
DX: R07.89 Other chest pain (principal); R11.10 Vomiting, unspecified; J45.909 Unspecified asthma, uncomplicated; I10 Essential (primary) hypertension; F17.290 Nicotine dependence, other tobacco product, uncomplicated; F12.90 Cannabis use, unspecified, uncomplicated; Z20.822 Contact with and (suspected) exposure to COVID-19
CPT/HCPCS: 36415; 93005; 80053; 83605; 83735; 84484; 85025; 85610; 85730; 87635; 71046; 99285; 96374; 96375 ×5; 96361; J0360; J0780; J2405; J1885; C9113

== ENCOUNTER 2023-02-21 14:21 | Inpatient (IN) | payer MEDICAID, OTHER ==
--- NOTE | 2023-02-21 14:46 | ED ---
Psych HPI - General Chief Complaint: Psychiatric Symptoms Stated Complaint: mental health Time Seen by Provider: 02/21/23 14:31 Source: patient, family, RN notes reviewed Mode of arrival: ambulatory - History of Present Illness Initial Comments: 26-year-old male with a history of bipolar depression and anxiety also supposedly a history of hypertension in the past who presents today for evaluation for depression. He is brought in by his parents were concerned. Patient states she's feeling very depressed at a very low point his life he does have a history of suicidal ideation the past he states she's not quite there yet. No plans to harm himself or others at this time. He wants to get tingling here before gets to that point. He does admit to smoking marijuana no other street drugs. MD Complaint: feels depressed - Related Data Home Medications Medication Instructions Recorded Confirmed No Known Home Medications 02/21/23 02/21/23 Allergies Allergy/AdvReac Type Severity Reaction Status Date / Time No Known Allergies Allergy Verified 02/21/23 16:25 Review of Systems ROS Statement: Those systems with pertinent positive or pertinent negative responses have been documented in the HPI. ROS Other: All systems not noted in ROS Statement are negative. Past Medical History Past Medical History: Asthma, Hypertension, Pneumonia Additional Past Medical History / Comment(s): Pt states he has had HTN in the past and was on HTN medication but was taken off of it and is monitoring his blood pressure. History of Any Multi-Drug Resistant Organisms: None Reported Past Surgical History: Hernia Repair Additional Past Surgical History / Comment(s): Umbilical hernia as a child Past Anesthesia/Blood Transfusion Reactions: No Reported Reaction Past Psychological History: Anxiety, Bipolar, Depression Smoking Status: Former smoker, Vaper Past Alcohol Use History: None Reported Past Drug Use History: Marijuana - Past Family History Father Family Medical History: Diabetes Mellitus, Hypertension Additional Family Medical History / Comment(s): Father had bariatric surgery Mother Additional Family Medical History / Comment(s): Vision issues. General Exam - General Exam Comments Initial Comments: This is a well little pulmonary awake alert oriented 4 male Limitations: no limitations General appearance: alert, anxious Head exam: Present: atraumatic, normocephalic, normal inspection Eye exam: Present: normal appearance, PERRL, EOMI. Absent: scleral icterus, conjunctival injection, periorbital swelling ENT exam: Present: normal exam, mucous membranes moist Neck exam: Present: normal inspection, full ROM. Absent: tenderness, meningismus, lymphadenopathy Respiratory exam: Present: normal lung sounds bilaterally. Absent: respiratory distress, wheezes, rales, rhonchi, stridor Cardiovascular Exam: Present: regular rate, normal rhythm, normal heart sounds. Absent: systolic murmur, diastolic murmur, rubs, gallop, clicks GI/Abdominal exam: Present: soft, normal bowel sounds. Absent: distended, tenderness, guarding, rebound, rigid Extremities exam: Present: normal inspection, full ROM, normal capillary refill. Absent: tenderness, pedal edema, joint swelling, calf tenderness Back exam: Present: normal inspection Neurological exam: Present: alert, oriented X3, CN II-XII intact Psychiatric exam: Present: depressed, flat affect Skin exam: Present: warm, dry, intact, normal color. Absent: rash Course Vital Signs 02/21/23 14:28 Temperature 98 F Pulse Rate 100 Respiratory 20 Rate Blood Pressure 134/99 O2 Sat by Pulse 97 Oximetry Medical Decision Making - Medical Decision Making The patient was evaluated by the EPS service and will be admitted for inpatient evaluation and treatment of major depressionWas pt. sent in by a medical professional or institution (, PA, AUTOMOTIVE SALES SPECIALIST, urgent care, hospital, or long-term...) When possible be specific @ -No Did you speak to anyone other than the patient for history (EMS, parent, family, police, friend...)? What history was obtained from this source @ -No Did you review nursing and triage notes (agree or disagree)? Why? @ -I reviewed and agree with nursing and triage notes Were old charts reviewed (outside hosp., previous admission, EMS record, old EKG, old radiological studies, urgent care reports/EKG's, long-term records)? Report findings @ -No old charts were reviewed Differential Diagnosis (chest pain, altered mental status, abdominal pain women, abdominal pain men, vaginal bleeding, weakness, fever, dyspnea, syncope, headache, dizziness, GI bleed, back pain, seizure, CVA, palpatations, mental health, musculoskeletal)? @ -Depression EKG interpreted by me (3pts min.). @ -Done X-rays interpreted by me (1pt min.). @ -None done CT interpreted by me (1pt min.). @ -None done U/S interpreted by me (1pt. min.). @ -None done What testing was considered but not performed or refused? (CT, X-rays, U/S, labs)? Why? @ -None What meds were considered but not given or refused? Why? @ -None Did you discuss the management of the patient with other professionals (professionals i.e. Dr., PA, AUTOMOTIVE SALES SPECIALIST, lab, RT, psych nurse, psychologist social, gas substation operator, teacher, structural engineering drafting officer, pillowcase folder)? Give summary @ -No Was smoking cessation discussed for >3mins.? @ -No Was critical care preformed (if so, how long)? @ -No Were there social determinants of health that impacted care today? How? (Homelessness, low income, unemployed, alcoholism, drug addiction, transportation, low edu. Level, literacy, decrease access to med. care, senior care, rehab)? @ -No Was there de-escalation of care discussed even if they declined (Discuss DNR or withdrawal of care, Hospice)? DNR status @ -No What co-morbidities impacted this encounter? (DM, HTN, Smoking, COPD, CAD, Cancer, CVA, ARF, Chemo, Hep., AIDS, mental health diagnosis, sleep apnea, morbid obesity)? @ -History depression] Was patient admitted / discharged? Hospital course, mention meds given and route, prescriptions, significant lab abnormalities, going to OR and other pertinent info. @ -hospital course was admitted to the EPS service for inpatient evaluation and treatment Undiagnosed new problem with uncertain prognosis? @ -No Drug Therapy requiring intensive monitoring for toxicity (Heparin, Nitro, Insulin, Cardizem)? @ -No Were any procedures done? @ -No Diagnosis/symptom? @ -Major depression Acute, or Chronic, or Acute on Chronic? @ -Acute on chronic Uncomplicated (without systemic symptoms) or Complicated (systemic symptoms)? @ -default Side effects of treatment? @ -No Exacerbation, Progression, or Severe Exacerbation? @ -Severe exacerbation Poses a threat to life or bodily function? How? (Chest pain, USA, NH, pneumonia, PE, COPD, DKA, ARF, appy, cholecystitis, CVA, Diverticulitis, Homicidal, Suicidal, threat to staff... and all critical care pts) @ -Attentional, depression - Lab Data Lab Results 02/21/23 Range/Units 14:32 Urine Opiates Screen Not Detected (NotDetected) Ur Oxycodone Screen Not Detected (NotDetected) Urine Methadone Screen Not Detected (NotDetected) Ur Propoxyphene Screen Not Detected (NotDetected) Ur Barbiturates Screen Not Detected (NotDetected) U Tricyclic Antidepress Not Detected (NotDetected) Ur Phencyclidine Scrn Not Detected (NotDetected) Ur Amphetamines Screen Not Detected (NotDetected) U Methamphetamines Scrn Not Detected (NotDetected) U Benzodiazepines Scrn Not Detected (NotDetected) Urine Cocaine Screen Not Detected (NotDetected) U Marijuana (THC) Screen Detected H (NotDetected) Disposition Clinical Impression: Major depression Disposition: TRANSFER TO PSYCH HOSP/UNIT Condition: Stable Referrals: None,Stated [Primary Care Provider] - 1-2 days Decision Date: 02/21/23 Decision Time: 17:29
[2023-02-21 16:14] LABS: Amphetamine Screen,Urine Not Detected (NotDetected); Barbiturate Screen,Urine Not Detected (NotDetected); Benzodiazepines Screen,Urine Not Detected (NotDetected); Cocaine Screen,Urine Not Detected (NotDetected); Methadone Screen, Urine Not Detected (NotDetected); Opiate Screen,Urine Not Detected (NotDetected); Oxycodone Screen, Urine Not Detected (NotDetected); Phencyclidine Screen,Urine Not Detected (NotDetected); Tricyclic Antidepressant,Urine Not Detected (NotDetected); Urn Cannabinoid Scrn Detected (NotDetected)
[2023-02-21] MEDS ORDERED: MAGNESIUM HYDROXIDE 2,400 MG/30 ML CUP PO PRN (19:40)
[2023-02-21] MEDS ORDERED: ACETAMINOPHEN TAB 325 MG TAB PO PRN (19:40)
[2023-02-21] MEDS ORDERED: MAG HYDROX/AL HYDROX/SIMETH 30 ML CUP PO PRN (19:40)
[2023-02-21] MEDS ORDERED: LORazepam 2 MG/ML INJ IM PRN (19:46)
[2023-02-21] MEDS ORDERED: HALOPERIDOL LACTATE 5 MG/ML 1 ML VIAL IM PRN (19:49)
[2023-02-21] MEDS: LORazepam 1 MG TAB PO PRN (22:04)
--- NOTE | 2023-02-22 04:09 | P.CONS ---
History of Present Illness - Reason for Consult Consult date: 02/22/23 - History of Present Illness The patient is a 27-year-old male with a PMH of psychiatric conditions including depression and anxiety who presented to the emergency room with complaints of depression and suicidal ideation. The patient was admitted to the mental health unit where he was seen and evaluated. The patient reports that he has been having some difficulty after recently finding out that his may be cheating on him. He reports using vapes and recreational marijuana. He denied any additional illicit substance use or alcohol use. He denied any physical complaints at the time of interview. He denied experiencing chest discomfort, shortness of breath, fever, chills, cough, nausea, vomiting, abdominal pain, diarrhea. Review of systems: Pertinent positives and negatives as discussed in HPI, a complete review of systems was performed and all other systems are negative. Physical examination: General: non toxic, no distress, appears at stated age, normal weight Derm: no unusual rashes/lesions, no unusual ecchymoses, warm, dry Head: atraumatic, normocephalic, symmetric Eyes: EOMI, no lid lag, anicteric sclera ENT: Nose and ears atraumatic, no thrush, no pharyngeal erythema Neck: trachea midline, supple Mouth: no lip lesion, mucus membranes moist Cardiovascular: S1S2 reg, no murmur, no edema Lungs: CTA bilateral, no rhonchi, no rales , no accessory muscle use Abdominal: soft, nontender to palpation, no guarding Ext: no gross muscle atrophy, no contractures, Neuro: No gross focal neuro deficits noted Psych: Alert, oriented, appropriate affect Assessment: Marijuana abuse Depression and suicidal ideation Plan: Advised on importance of cessation Defer management of depression to primary psychiatry service Thank you for allowing us to participate in the care of this patient. We will follow peripherally. Do not hesitate to contact us with questions. Someone can be reached from the [facility] hospitalist group at all hours of the day at [phone]. Past Medical History Past Medical History: Asthma, Hypertension, Pneumonia Additional Past Medical History / Comment(s): Pt states he has had HTN in the past and was on HTN medication but was taken off of it and is monitoring his blood pressure. History of Any Multi-Drug Resistant Organisms: None Reported Past Surgical History: Hernia Repair Additional Past Surgical History / Comment(s): Umbilical hernia as a child Past Anesthesia/Blood Transfusion Reactions: No Reported Reaction Past Psychological History: Anxiety, Bipolar, Depression Smoking Status: Former smoker Past Alcohol Use History: None Reported Additional Past Alcohol Use History / Comment(s): Pt started smoking in 2011 Past Drug Use History: Marijuana Additional Drug Use History / Comment(s): Occasional marijuana use. - Past Family History Father Family Medical History: Diabetes Mellitus, Hypertension Additional Family Medical History / Comment(s): Father had bariatric surgery Mother Additional Family Medical History / Comment(s): Vision issues. Medications and Allergies Home Medications Medication Instructions Recorded Confirmed Type No Known Home Medications 02/21/23 02/21/23 History Allergies Allergy/AdvReac Type Severity Reaction Status Date / Time No Known Allergies Allergy Verified 02/21/23 20:36 Physical Exam Vitals: Vital Signs Temp Pulse Pulse Resp BP BP Pulse Ox 02/21/23 20:30 98.6 F 94 16 132/85 02/21/23 19:48 98.3 F 91 18 107/70 97 02/21/23 14:28 98 F 100 20 134/99 97 Intake and Output 02/21/23 02/21/23 02/22/23 14:59 22:59 06:59 Other: Weight 81.647 kg 81.647 kg Results Labs: Abnormal Lab Results - Last 24 Hours (Table) 02/21/23 Range/Units 14:32 U Marijuana (THC) Screen Detected H (NotDetected)
[2023-02-22] MEDS: NICOTINE 14MG/24HR PATCH TRANSDERM SCH (08:35)
[2023-02-22] MEDS: LORazepam 1 MG TAB PO PRN ×2 (08:36→13:53)
[2023-02-22 08:52] LABS: HCT 46.1 % (39.0-53.0); HGB 15.7 gm/dL (13.0-17.5); MCH 31.1 pg (25.0-35.0); MCHC 34.1 g/dL (31.0-37.0); MCV 91.1 fL (80.0-100.0); Mean Platelet Volume 8.7; Platelet Count 208 k/uL (150-450); RBC 5.06 m/uL (4.30-5.90); RDW 12.9 % (11.5-15.5); WBC 3.3 k/uL (3.8-10.6)
[2023-02-22 09:10] LABS: ALT 82 U/L (4-49); AST 260 U/L (17-59); African American GFR (CKD) >90 (>60 ml/min/1.73 sqM); Albumin 4.3 g/dL (3.5-5.0); Alkaline Phosphatase 47 U/L (38-126); Anion Gap 5 mmol/L; Blood Urea Nitrogen 5 mg/dL (9-20); Calcium 9.4 mg/dL (8.4-10.2); Carbon Dioxide 30 mmol/L (22-30); Chloride 104 mmol/L (98-107); Glucose 83 mg/dL (74-99); Non-African American GFR(CKD) >90 (>60 ml/min/1.73 sqM); Potassium 3.7 mmol/L (3.5-5.1); Sodium 139 mmol/L (137-145); Total Bilirubin 0.9 mg/dL (0.2-1.3); Total Protein 6.8 g/dL (6.3-8.2)
[2023-02-22] MEDS: haloperidoL 5 MG TAB PO PRN (09:29)
[2023-02-22 09:40] LABS: Appearance,Urine Clear (Clear); Bilirubin,Urine Negative (Negative); Blood,Urine Negative (Negative); Color,Urine Colorless; Glucose,Urine (UA) Negative (Negative); Ketones,Urine Trace (Negative); Leukocyte Esterase,Urine Negative (Negative); Nitrite,Urine Negative (Negative); Protein,Urine Negative (Negative); Specific Gravity,Urine 1.002 (1.001-1.035); Urobilinogen,Urine <2.0 mg/dL (<2.0)
[2023-02-22] MEDS ORDERED: OLANZapine ODT 5 MG TAB PO STA (15:06)
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
[2023-02-22 20:09] LABS: LDL Cholesterol,Calculated 88.3 mg/dL (0.0-131.0); VLDL Calculation 18.28 mg/dL (5.00-40.00)
[2023-02-22] MEDS ORDERED: OLANZapine 5 MG TAB PO SCH (21:00)
[2023-02-23] MEDS: NICOTINE 14MG/24HR PATCH TRANSDERM SCH (07:51)
[2023-02-23] MEDS: LORazepam 1 MG TAB PO PRN ×2 (10:17→16:41)
--- NOTE | 2023-02-23 15:08 | P.PN ---
Progress Note - Text Progress Note Date: 02/23/23 Interval History: Patient was seen isolating to his room, laying in bed in the dark, reading a book, and was directable and agreeable to speak with chart writer in the office. He continues to report depressed mood, and discusses multiple delusional beliefs about his family, that they have been recording him for the past 3 years and the truth is coming out about them. He believes they are watching him. He feels worthless and states "I personally messed up and I am seen as a monster". He says he feels a little better today than yesterday after starting the Zyprexa. At this time patient denies any suicidal or homical ideation, intent or plan. Patient denies any auditory, visual hallucinations and denies any paranoia or delusions. Patient denies any side effects from the medications and has been compliant with meds. Mental Status Exam: General Appearance: Patient appears to be stated age, tall slender male, facial hair, dressed in casual attire, adequate hygiene and grooming. Behavior: Patient is withdrawn, isolates to his room, laying in bed in the dark reading a book Speech: Patient's speech is fluent, soft, low tone and non-pressured. Mood/Affect: Mood is depressed, affect is very depressed. Suicidality/Homicidality: Patient denies having any suicidal or homicidal ideation intent or plan. Perceptions: Patient denies any visual hallucinations and denies any auditory hallucinations. Though content/process: There is evidence of paranoid delusional thought content and thought process is ruminative. Memory and concentration: AOX3, grossly intact for the purposes of this session Judgment and insight: Poor Assessment Bipolar I disorder, current episode depressed, severe with psychotic features Rule out cannabis use disorder Plan: -Patient continues to meet criteria for inpatient psychiatric admission for symptom stabilization and safety. Patient has signed adult voluntary form and was placed in patient's chart. -Medications: Increase Zyprexa to 10 mg QHS for psychosis/mood. Start Prozac 10 mg daily for bipolar depression, starting tomorrow morning. -When necessary Ativan and Haldol for agitation/aggression. -NRT - nicotine patch -SW on board for discharge planning. Encouraged the patient to participate in milieu.
[2023-02-23] MEDS ORDERED: OLANZapine 10 MG TAB PO SCH (21:00)
[2023-02-24] MEDS: NICOTINE 14MG/24HR PATCH TRANSDERM SCH (08:07)
[2023-02-24] MEDS ORDERED: FLUoxetine HCL 10 MG CAP PO SCH (09:00)
--- NOTE | 2023-02-24 15:49 | P.PN ---
Progress Note - Text Progress Note Date: 02/24/23 Interval History: Patient was seen isolating to his room, and was directable and agreeable to speak with service writer in the office. He reports his mood is getting better, however he continues to reports feeling worthless. He appears suspicious and paranoid, and is fixated on multiple delusional beliefs about his parents, cousins, and another patient on the unit. He believes that people here on the unit know people on the outside including his parents and cousins. He believes a patient on the unit told him "Goodbye Lucifer" as we were walking into my office, however I did not hear this as I was escorting the patient to my office. He believes they are watching him. At this time patient denies any suicidal or homicidal ideation, intent or plan. Patient denies any auditory, visual hallucinations, but appears internally preoccupied. Patient denies any side effects from the medications and has been compliant with meds. Mental Status Exam: General Appearance: Patient appears to be stated age, tall slender male, facial hair, dressed in casual attire, adequate hygiene and grooming. Behavior: Patient is withdrawn, isolates to his room Speech: Patient's speech is fluent, soft, low tone and non-pressured. Mood/Affect: Mood is "getting better", affect is depressed and constricted. Suicidality/Homicidality: Patient denies having suicidal or homicidal ideation intent or plan. Perceptions: He appears to be attending to internal stimuli, concern for auditory hallucinations. Though content/process: There is evidence of paranoid delusional thought content and thought process is ruminative. Memory and concentration: AOX3, grossly intact for the purposes of this session Judgment and insight: Poor Assessment Bipolar I disorder, current episode depressed, severe with psychotic features Rule out cannabis use disorder Plan: -Patient continues to meet criteria for inpatient psychiatric admission for symptom stabilization and safety. Patient has signed adult voluntary form and was placed in patient's chart. -Medications: Increase Zyprexa to 15 mg QHS for psychosis/mood starting tonight, and add another Zyprexa 5 mg daily in the morning starting tomorrow morning. Increase Prozac to 20 mg daily for bipolar depression, starting tomorrow morning. -When necessary Ativan and Haldol for agitation/aggression. -NRT - nicotine patch -SW on board for discharge planning. Encouraged the patient to participate in milieu.
[2023-02-24] MEDS: LORazepam 1 MG TAB PO PRN ×2 (16:40→23:24)
[2023-02-24] MEDS ORDERED: OLANZapine 5 MG TAB PO SCH (21:00)
[2023-02-24] MEDS: haloperidoL 5 MG TAB PO PRN (21:21)
[2023-02-24] MEDS ORDERED: hydrALAZINE HCL 25 MG TAB PO STA (21:29)
[2023-02-25] MEDS: NICOTINE 14MG/24HR PATCH TRANSDERM SCH (08:27)
[2023-02-25] MEDS ORDERED: OLANZapine 5 MG TAB PO SCH (09:00)
[2023-02-25] MEDS ORDERED: FLUoxetine HCL 20 MG CAP PO SCH (09:00)
--- NOTE | 2023-02-25 11:16 | P.PN ---
Progress Note - Text Progress Note Date: 02/25/23 Interval History: Patient was seen i wandering the hallways and was directable and agreeable to speak with show card writer in the office. He reports his mood is fair at this time however continues to have a depressed affect and poor eye contact. He continues to endorse suspiciousness and paranoia and multiple delusional beliefs about his parents and other family members. He speaks of being persecuted against however was not able to fully explain it. claims that he has trouble sleeping last night and states that during the day his energy level is low. At this time patient denies any suicidal or homicidal ideation, intent or plan. Patient denies any auditory, visual hallucinations. Patient denies any side effects from the medications and has been compliant with meds. Mental Status Exam: General Appearance: Patient appears to be stated age, tall slender male, facial hair, dressed in casual attire, adequate hygiene and grooming. Behavior: Patient is withdrawn, isolating, directable Speech: Patient's speech is fluent, soft, low tone and non-pressured. Mood/Affect: Mood is "ok i guess", affect is depressed and constricted. Suicidality/Homicidality: Patient denies having suicidal or homicidal ideation intent or plan. Perceptions: does not appear to be attending to internal stimuli, denying any AH or . Though content/process: There is evidence of paranoid delusional thought content and thought process is ruminative, improving mildly Memory and concentration: AOX3, grossly intact for the purposes of this session Judgment and insight: Poor, improving mildly Assessment Bipolar I disorder, current episode depressed, severe with psychotic features cannabis use disorder nicotine dependence Plan: -Patient continues to meet criteria for inpatient psychiatric admission for symptom stabilization and safety. Patient has signed adult voluntary form and was placed in patient's chart. -Medications: Increase Zyprexa to 20 mg QHS for psychosis/mood d/c the morning dose due to sedation. Increase Prozac to 30 mg daily for bipolar depression -When necessary Ativan and Haldol for agitation/aggression. -NRT - nicotine patch -SW on board for discharge planning. Encouraged the patient to participate in milieu. likely discharge next week if patient continues to improve
[2023-02-25] MEDS: carvediloL 6.25 MG TAB PO SCH (19:14)
[2023-02-25] MEDS ORDERED: OLANZapine 10 MG TAB PO SCH (21:00)
[2023-02-26] MEDS: NICOTINE 14MG/24HR PATCH TRANSDERM SCH (08:29)
[2023-02-26] MEDS: carvediloL 6.25 MG TAB PO SCH ×2 (08:31→17:28)
[2023-02-26 08:33] VITALS: RESP 18
[2023-02-26] MEDS ORDERED: FLUoxetine HCL 10 MG CAP PO SCH (09:00)
--- NOTE | 2023-02-26 12:04 | P.PN ---
Progress Note - Text Progress Note Date: 02/26/23 Interval History: Patient was seen wandering the hallways pacing this morning after taking his m edications and was directable and agreeable to speak with singer songwriter in the office. He reports his mood is fair. He appears to have mild improvement in his eye contact today. He claims that one of the patient's was pacing in the hallways and disturbed him yesterday and he states that instead of "getting upset" he states that he went to his room. He continues to have fairly constricted affect. Was more appropriate today. He continues to endorse suspiciousness and paranoia over this is improving and is less focused on this. He believes that his medications are mainly to help with sleep only. I'm that his energy level is a bit better today, we talked about adjusting his medications of the week in which she is okay with. At this time patient denies any suicidal or homicidal ideation, intent or plan. Patient denies any auditory, visual hallucinations. Patient denies any side effects from the medications and has been compliant with meds. Mental Status Exam: General Appearance: Patient appears to be stated age, tall slender male, facial hair, dressed in casual attire, adequate hygiene and grooming. Behavior: Patient is withdrawn, isolating, directable Speech: Patient's speech is fluent, soft, low tone and non-pressured. Mood/Affect: Mood is "ok", affect is depressed and constricted. Suicidality/Homicidality: Patient denies having suicidal or homicidal ideation intent or plan. Perceptions: does not appear to be attending to internal stimuli, denying any AH or . Though content/process: There is evidence of paranoid delusional thought content and thought process is ruminative, improving mildly Memory and concentration: AOX3, grossly intact for the purposes of this session Judgment and insight: Poor, improving mildly Assessment Bipolar I disorder, current episode depressed, severe with psychotic features cannabis use disorder nicotine dependence Plan: -Patient continues to meet criteria for inpatient psychiatric admission for symptom stabilization and safety. Patient has signed adult voluntary form and was placed in patient's chart. -Medications: Zyprexa 20 mg QHS for psychosis/mood/insomnia Increase Prozac to 40 mg daily for bipolar depression over the weekend -When necessary Ativan and Haldol for agitation/aggression. -NRT - nicotine patch -SW on board for discharge planning. Encouraged the patient to participate in milieu. likely discharge wednesday back home if envt is safe.
[2023-02-26] MEDS: OLANZapine 10 MG TAB PO SCH (20:20)
[2023-02-26] MEDS ORDERED: OLANZapine 10 MG TAB PO SCH (21:00)
[2023-02-27] MEDS: NICOTINE 14MG/24HR PATCH TRANSDERM SCH (08:23)
[2023-02-27] MEDS: carvediloL 6.25 MG TAB PO SCH ×2 (08:25→17:38)
[2023-02-27] MEDS ORDERED: FLUoxetine HCL 10 MG CAP PO ONE (09:00)
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
[2023-02-27] MEDS: OLANZapine 10 MG TAB PO SCH (20:18)
[2023-02-28] MEDS: carvediloL 6.25 MG TAB PO SCH ×2 (08:40→17:36)
[2023-02-28] MEDS: FLUoxetine HCL 20 MG CAP PO SCH (08:40)
[2023-02-28] MEDS: NICOTINE 14MG/24HR PATCH TRANSDERM SCH (08:41)
--- NOTE | 2023-02-28 09:26 | P.PN ---
Subjective Progress Note Date: 02/28/23 Principal diagnosis: Assessment Bipolar I disorder, current episode depressed, severe with psychotic features cannabis use disorder nicotine dependence Patient Name: Keegan Aponte Date of : 89 Patient Status: Inpatient Attending Provider: Toney Wong Date: 02/28/23 Follow-up by Dr. Priyank Montes M.D. Interval History: The patient reports that he slept well but then in the morning he Falling back t o sleep and had difficulty getting up He says that he has been dealing with depression so long that it does not know if it's getting any better He says that he is taking 1 day at a time Currently denies that he is having any suicidal ideations or plans He says that he wants to get better and is hopeful that this situation with his family improves Mental Status Exam: General Appearance: Patient appears to be stated age, tall slender male, facial hair, dressed in casual attire, adequate hygiene and grooming. Behavior: Patient is withdrawn, isolating, directable Does not exhibit any paranoia anger projection at this time Speech: Patient's speech is fluent, soft, low tone and non-pressured. Mood/Affect: Mood is "ok", affect is depressed and constricted. Suicidality/Homicidality: Patient denies having suicidal or homicidal ideation intent or plan. Perceptions: does not appear to be attending to internal stimuli, denying any AH or . Though content/process: There is evidence of paranoid delusional thought content and thought process is ruminative, Memory and concentration: AOX3, grossly intact for the purposes of this session Judgment and insight: Poor, Assessment Bipolar I disorder, current episode depressed, severe with psychotic features cannabis use disorder nicotine dependence Marital conflicts Plan: -Patient continues to meet criteria for inpatient psychiatric admission for symptom stabilization and safety. Patient has signed adult voluntary form and was placed in patient's chart. -Medications: Zyprexa 20 mg QHS for psychosis/mood/insomnia Prozac to 40 mg daily for bipolar depression over the weekend -When necessary Ativan and Haldol for agitation/aggression. -NRT - nicotine patch -SW on board for discharge planning. Encouraged the patient to participate in milieu. likely discharge wednesday back home if envt is safe. Priyank Montes M.D. 02/28/2023 Objective - Vital Signs Vital signs: Vital Signs Temp 97.5 F L 02/26/23 06:50 Pulse 107 H 02/28/23 08:35 Resp 18 02/26/23 08:32 BP 143/99 02/28/23 08:35 Pulse Ox 98 02/26/23 08:32 FiO2 - Labs CBC & Chem 7: 02/22/23 08:08 02/22/23 08:08
[2023-02-28] MEDS: LORazepam 1 MG TAB PO PRN (12:28)
[2023-02-28] MEDS: OLANZapine 10 MG TAB PO SCH (20:23)
[2023-03-01] MEDS: NICOTINE 14MG/24HR PATCH TRANSDERM SCH (08:31)
[2023-03-01] MEDS: carvediloL 6.25 MG TAB PO SCH ×2 (08:32→18:17)
[2023-03-01] MEDS: FLUoxetine HCL 20 MG CAP PO SCH (08:32)
--- NOTE | 2023-03-01 12:10 | P.PN ---
Progress Note - Text Progress Note Date: 03/01/23 Interval History: Patient was seen sitting in a group today and was directable and agreeable to speak with documentation writer in the office. He reports his mood is fair today however did state that he is angry at a couple of patients on the unit due to things that they have said to him. He states "they're being racist towards me". He states that he has been mainly staying away from them and keeping them trying to remain positive. Claims that he is looking forward to discharge and will be able to go back to his parents house. He claims that his mood and anxiety are fair at this time. States that the racing thoughts and negative thoughts have been improving with the medications. States that he is able to sleep much better on the medications. Was more appropriate today. He wants to remain on the same medications at this time. At this time patient denies any suicidal or homicidal ideation, intent or plan. Patient denies any auditory, visual hallucinations. Patient denies any side effects from the medications and has been compliant with meds. Mental Status Exam: General Appearance: Patient appears to be stated age, tall slender male, facial hair, dressed in casual attire, adequate hygiene and grooming. Behavior: Patient is interacting, more pleasant. Speech: Patient's speech is fluent, improving tone and non-pressured. Mood/Affect: Mood is "alright", affect is improving Suicidality/Homicidality: Patient denies having suicidal or homicidal ideation intent or plan. Perceptions: does not appear to be attending to internal stimuli, denying any AH or . Though content/process: There is evidence of paranoid delusional thought content, improving mildly. goal oriented. Memory and concentration: AOX3, grossly intact for the purposes of this session Judgment and insight: improving mildly Assessment Bipolar I disorder, current episode depressed, severe with psychotic features cannabis use disorder nicotine dependence Plan: -Patient continues to meet criteria for inpatient psychiatric admission for symptom stabilization and safety. Patient has signed adult voluntary form and was placed in patient's chart. -Medications: continue with Zyprexa 20 mg QHS for psychosis/mood/insomnia Prozac 40 mg daily for bipolar depression -When necessary Ativan and Haldol for agitation/aggression. -NRT - nicotine patch -SW on board for discharge planning. Encouraged the patient to participate in milieu. likely discharge tomorrow back home with his parents, SW to help coordinate this for tomorrow.
[2023-03-01] MEDS: OLANZapine 10 MG TAB PO SCH (20:36)
[2023-03-01] MEDS: LORazepam 1 MG TAB PO PRN (20:38)
[2023-03-02 06:41] VITALS: PULSE 62; TEMP 97.9
[2023-03-02] MEDS: FLUoxetine HCL 20 MG CAP PO SCH (08:40)
[2023-03-02] MEDS: carvediloL 6.25 MG TAB PO SCH (08:40)
[2023-03-02] MEDS: NICOTINE 14MG/24HR PATCH TRANSDERM SCH ×3 (08:43→08:45)
[2023-03-02 08:47] VITALS: BP 176/109
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
== END 2023-03-02 14:15 | disposition home or self-care (01) | DRG 753 ==
LOC: EC 14:21 → 3MHU 19:39
PROVIDERS: ADMIT Psychiatry & Neurology Psychiatry; ATTEND Psychiatry & Neurology Psychiatry
DX: F31.5 Bipolar disorder, current episode depressed, severe, with psychotic features (principal); F41.9 Anxiety disorder, unspecified; F12.10 Cannabis abuse, uncomplicated; Z71.51 Drug abuse counseling and surveillance of drug abuser; Z71.89 Other specified counseling; Z62.810 Personal history of physical and sexual abuse in childhood; G47.00 Insomnia, unspecified; F17.210 Nicotine dependence, cigarettes, uncomplicated; I10 Essential (primary) hypertension; J45.909 Unspecified asthma, uncomplicated; Z87.01 Personal history of pneumonia (recurrent); R45.851 Suicidal ideations; Z63.0 Problems in relationship with spouse or partner; Z79.899 Other long term (current) drug therapy; Z91.51 Personal history of suicidal behavior; Z20.822 Contact with and (suspected) exposure to COVID-19; Z28.310 Unvaccinated for COVID-19
CPT/HCPCS: 80053; 80061; 80306; 81003; 82075; 83036; 84443; 85027; 87635; 99285

== ENCOUNTER 2023-05-19 12:46 | Emergency (ER) | payer OTHER ==
--- NOTE | 2023-05-19 13:45 | ED ---
General Adult HPI - General Source: RN notes reviewed <Shelley Rojas - Last Filed: 05/19/23 16:01> <Ramesh Alcala - Last Filed: 05/21/23 03:05> - General Stated complaint: mental health Time Seen by Provider: 05/19/23 13:44 - History of Present Illness Initial comments: 27 year old male presents to the emergency department with a chief complaint of increased anxiety and worsening depression. (Shelley Rojas) 27-year-old male with history of bipolar depression presenting with chief complaint of anxiety and depression. Patient states symptoms have been worsening over the last week. He states that he recognizes himself falling into patterns where he is unable to hold a job and states he is currently losing employment because of his symptoms. Patient states that he has been hoping that he doesn't wake up in the morning, denies any plan for self harm. No homicidal ideation. No physical complaints at this time. (Ramesh Alcala) - Related Data Home Medications Medication Instructions Recorded Confirmed Nicotine 7Mg/24Hr Patch [Habitrol] 1 patch TRANSDERM DAILY PRN 05/20/23 05/20/23 Ondansetron [Zofran] 4 mg PO Q12HR PRN 05/20/23 05/20/23 amLODIPine [Norvasc] 5 mg PO DAILY 05/20/23 05/20/23 Previous Rx's Medication Instructions Recorded FLUoxetine HCL [PROzac] 40 mg PO DAILY 30 Days #60 cap 03/02/23 OLANZapine [ZyPREXA] 20 mg PO HS 30 Days #60 tab 03/02/23 carvediloL [Coreg] 6.25 mg PO BID-W/MEALS 30 Days #30 03/02/23 tab Allergies Allergy/AdvReac Type Severity Reaction Status Date / Time No Known Allergies Allergy Verified 05/20/23 11:41 Review of Systems ROS Other: All systems not noted in ROS Statement are negative. <Shelley Rojas - Last Filed: 05/19/23 16:01> ROS Other: All systems not noted in ROS Statement are negative. <Ramesh Alcala - Last Filed: 05/21/23 03:05> ROS Statement: Those systems with pertinent positive or pertinent negative responses have been documented in the HPI. Past Medical History Past Medical History: Asthma, Hypertension, Pneumonia Additional Past Medical History / Comment(s): Pt states he has had HTN in the past and was on HTN medication but was taken off of it and is monitoring his blood pressure. History of Any Multi-Drug Resistant Organisms: None Reported Past Surgical History: Hernia Repair Additional Past Surgical History / Comment(s): Umbilical hernia as a child Past Anesthesia/Blood Transfusion Reactions: No Reported Reaction Past Psychological History: Anxiety, Bipolar, Depression Smoking Status: Former smoker Past Alcohol Use History: None Reported Additional Past Alcohol Use History / Comment(s): Pt started smoking in 2011 Past Drug Use History: Marijuana Additional Drug Use History / Comment(s): Occasional marijuana use. - Past Family History Father Family Medical History: Diabetes Mellitus, Hypertension Additional Family Medical History / Comment(s): Father had bariatric surgery Mother Additional Family Medical History / Comment(s): Vision issues. <Shelley Rojas - Last Filed: 05/19/23 16:01> General Exam <Shelley Rojas - Last Filed: 05/19/23 16:01> Limitations: no limitations General appearance: alert, in no apparent distress Head exam: Present: atraumatic, normocephalic, normal inspection Eye exam: Present: normal appearance, EOMI Neck exam: Present: normal inspection, full ROM Respiratory exam: Absent: respiratory distress Neurological exam: Present: alert, oriented X3 Psychiatric exam: Present: normal affect, normal mood Skin exam: Present: warm, dry, intact, normal color. Absent: rash <Ramesh Alcala - Last Filed: 05/21/23 03:05> - General Exam Comments Initial Comments: Visual Physical Exam Vital signs reviewed General: Well-appearing, nontoxic, no acute distress. Head: Normocephalic, atraumatic Eyes: PERRLA, EOMI ENT: Airway patent Chest: Nonlabored breathing Skin: No visual rash, normal skin tone Neuro: Alert and oriented 3 Musculoskeletal: No gross abnormalities I performed the quick note portion of this exam, verbal signature Shelley Rojas PA-C (Shelley Rojas) Course Vital Signs 05/19/23 13:44 Temperature 99.1 F Pulse Rate 87 Respiratory 18 Rate Blood Pressure 154/81 O2 Sat by Pulse 98 Oximetry Medical Decision Making - Lab Data Result diagrams: 05/19/23 22:13 05/19/23 22:13 <CariUrbantrent - Last Filed: 05/21/23 03:05> - Medical Decision Making Was pt. sent in by a medical professional or institution (, [facility], [facility], urgent care, hospital, or skilled nursing...) When possible be specific @ -No Did you speak to anyone other than the patient for history (EMS, parent, family, police, friend...)? What history was obtained from this source @ -No Did you review nursing and triage notes (agree or disagree)? Why? @ -I reviewed and agree with nursing and triage notes Were old charts reviewed (outside hosp., previous admission, EMS record, old EKG, old radiological studies, urgent care reports/EKG's, skilled nursing records)? Report findings @ -No old charts were reviewed Differential Diagnosis (chest pain, altered mental status, abdominal pain women, abdominal pain men, vaginal bleeding, weakness, fever, dyspnea, syncope, headac he, dizziness, GI bleed, back pain, seizure, CVA, palpatations, mental health, musculoskeletal)? @ -Differential Mental Health Depression, anxiety, bipolar, psychosis, schizophrenia, borderline personality, situational depression, adjustment disorder, behavioral disorder, brain tumor, malingering, substance abuse, encephalopathy, medication reaction, dementia, hypothyroidism, degenerative neurologic disorder, lupus.... This is not meant to be all-inclusive list EKG interpreted by me (3pts min.). @ -As above X-rays interpreted by me (1pt min.). @ -None done CT interpreted by me (1pt min.). @ -None done U/S interpreted by me (1pt. min.). @ -None done What testing was considered but not performed or refused? (CT, X-rays, U/S, labs)? Why? @ -None What meds were considered but not given or refused? Why? @ -None Did you discuss the management of the patient with other professionals (professionals i.e. [facility], [facility], lab, RT, psych nurse, social and political studies professor, lithographic artist, teacher, unarmed security officer, family service caseworker)? Give summary @ -Spoke with EPS nurse who advised admission Was smoking cessation discussed for >3mins.? @ -No Was critical care preformed (if so, how long)? @ -No Were there social determinants of health that impacted care today? How? (Homelessness, low income, unemployed, alcoholism, drug addiction, transporta tion, low edu. Level, literacy, decrease access to med. care, shelter, rehab)? @ -No Was there de-escalation of care discussed even if they declined (Discuss DNR or withdrawal of care, Hospice)? DNR status @ -No What co-morbidities impacted this encounter? (DM, HTN, Smoking, COPD, CAD, Cancer, CVA, ARF, Chemo, Hep., AIDS, mental health diagnosis, sleep apnea, morbid obesity)? @ -None Was patient admitted / discharged? Hospital course, mention meds given and route, prescriptions, significant lab abnormalities, going to OR and other pertinent info. @ -27-year-old male presenting for mental health evaluation. No physical complaints. Physical exam is conducted and patient is medically cleared. Patient is evaluated by EPS nurse who advises admission to mental health unit. Patient is agreeable with this plan. I discussed this case with my attending Dr. Yang Undiagnosed new problem with uncertain prognosis? @ -No Drug Therapy requiring intensive monitoring for toxicity (Heparin, Nitro, Insulin, Cardizem)? @ -No Were any procedures done? @ -No Diagnosis/symptom? @ -Depression and anxiety Acute, or Chronic, or Acute on Chronic? @ -Acute on chronic Uncomplicated (without systemic symptoms) or Complicated (systemic symptoms)? @ -Complicated Side effects of treatment? @ -No Exacerbation, Progression, or Severe Exacerbation? @ -No Poses a threat to life or bodily function? How? (Chest pain, [place], [place], pneumonia, PE, COPD, DKA, ARF, appy, cholecystitis, CVA, Diverticulitis, Homicidal, Suicidal, threat to staff... and all critical care pts) @ -Yes, suicidal ideation (Ramesh Alcala) - Lab Data Lab Results 05/19/23 05/19/23 05/19/23 Range/Units 13:45 20:02 20:05 WBC (3.8-10.6) k/uL RBC (4.30-5.90) m/uL Hgb (13.0-17.5) gm/dL Hct (39.0-53.0) % MCV (80.0-100.0) fL MCH (25.0-35.0) pg MCHC (31.0-37.0) g/dL RDW (11.5-15.5) % Plt Count (150-450) k/uL MPV Neutrophils % % Lymphocytes % % Monocytes % % Eosinophils % % Basophils % % Neutrophils # (1.3-7.7) k/uL Lymphocytes # (1.0-4.8) k/uL Monocytes # (0-1.0) k/uL Eosinophils # (0-0.7) k/uL Basophils # (0-0.2) k/uL Sodium (137-145) mmol/L Potassium (3.5-5.1) mmol/L Chloride (98-107) mmol/L Carbon Dioxide (22-30) mmol/L Anion Gap mmol/L BUN (9-20) mg/dL Creatinine (0.66-1.25) mg/dL Est GFR (CKD-EPI)AfAm (>60 ml/min/1.73 sqM) Est GFR (CKD-EPI)NonAf (>60 ml/min/1.73 sqM) Glucose (74-99) mg/dL Calcium (8.4-10.2) mg/dL Urine Color Colorless Urine Appearance Clear (Clear) Urine pH 6.5 (5.0-8.0) Ur Specific [place] 1.013 (1.001-1.035) Urine Protein Negative (Negative) Urine Glucose (UA) Negative (Negative) Urine Ketones Negative (Negative) Urine Blood Negative (Negative) Urine Nitrite Negative (Negative) Urine Bilirubin Negative (Negative) Urine Urobilinogen <2.0 (<2.0) mg/dL Ur Leukocyte Esterase Negative (Negative) Urine Opiates Screen Not Detected (NotDetected) Ur Oxycodone Screen Not Detected (NotDetected) Urine Methadone Screen Not Detected (NotDetected) Ur Propoxyphene Screen Not Detected (NotDetected) Ur Barbiturates Screen Not Detected (NotDetected) U Tricyclic Antidepress Not Detected (NotDetected) Ur Phencyclidine Scrn Not Detected (NotDetected) Ur Amphetamines Screen Not Detected (NotDetected) U Methamphetamines Scrn Not Detected (NotDetected) U Benzodiazepines Scrn Not Detected (NotDetected) Urine Cocaine Screen Not Detected (NotDetected) U Marijuana (THC) Screen Detected H (NotDetected) Influenza Type A (PCR) Not Detected (Not Detectd) Influenza Type B (PCR) Not Detected (Not Detectd) RSV (PCR) Not Detected (Not Detectd) SARS-CoV-2 (PCR) Not Detected (Not Detectd) 05/19/23 05/19/23 Range/Units 22:13 22:13 WBC 7.6 (3.8-10.6) k/uL RBC 5.15 (4.30-5.90) m/uL Hgb 15.8 (13.0-17.5) gm/dL Hct 46.0 (39.0-53.0) % MCV 89.4 (80.0-100.0) fL MCH 30.7 (25.0-35.0) pg MCHC 34.4 (31.0-37.0) g/dL RDW 13.1 (11.5-15.5) % Plt Count 242 (150-450) k/uL MPV 8.2 Neutrophils % 61 % Lymphocytes % 25 % Monocytes % 9 % Eosinophils % 2 % Basophils % 0 % Neutrophils # 4.6 (1.3-7.7) k/uL Lymphocytes # 1.9 (1.0-4.8) k/uL Monocytes # 0.7 (0-1.0) k/uL Eosinophils # 0.1 (0-0.7) k/uL Basophils # 0.0 (0-0.2) k/uL Sodium 143 (137-145) mmol/L Potassium 4.0 (3.5-5.1) mmol/L Chloride 105 (98-107) mmol/L Carbon Dioxide 24 (22-30) mmol/L Anion Gap 14 mmol/L BUN 16 (9-20) mg/dL Creatinine 0.78 (0.66-1.25) mg/dL Est GFR (CKD-EPI)AfAm >90 (>60 ml/min/1.73 sqM) Est GFR (CKD-EPI)NonAf >90 (>60 ml/min/1.73 sqM) Glucose 75 (74-99) mg/dL Calcium 9.7 (8.4-10.2) mg/dL Urine Color Urine Appearance (Clear) Urine pH (5.0-8.0) Ur Specific [place] (1.001-1.035) Urine Protein (Negative) Urine Glucose (UA) (Negative) Urine Ketones (Negative) Urine Blood (Negative) Urine Nitrite (Negative) Urine Bilirubin (Negative) Urine Urobilinogen (<2.0) mg/dL Ur Leukocyte Esterase (Negative) Urine Opiates Screen (NotDetected) Ur Oxycodone Screen (NotDetected) Urine Methadone Screen (NotDetected) Ur Propoxyphene Screen (NotDetected) Ur Barbiturates Screen (NotDetected) U Tricyclic Antidepress (NotDetected) Ur Phencyclidine Scrn (NotDetected) Ur Amphetamines Screen (NotDetected) U Methamphetamines Scrn (NotDetected) U Benzodiazepines Scrn (NotDetected) Urine Cocaine Screen (NotDetected) U Marijuana (THC) Screen (NotDetected) Influenza Type A (PCR) (Not Detectd) Influenza Type B (PCR) (Not Detectd) RSV (PCR) (Not Detectd) SARS-CoV-2 (PCR) (Not Detectd) Disposition <Shelley Rojas - Last Filed: 05/19/23 16:01> Time of Disposition: 22:07 <Ramesh Alcala - Last Filed: 05/21/23 03:05> Clinical Impression: Major depression, Suicidal ideation Disposition: ADMITTED IP TO THIS HOSP Condition: Fair Referrals: None,Stated [REFERRING] - 1-2 days
[2023-05-19 14:02] VITALS: BP 154/81; PULSE 87; RESP 18; TEMP 99.1
[2023-05-19 21:10] LABS: Amphetamine Screen,Urine Not Detected (NotDetected); Barbiturate Screen,Urine Not Detected (NotDetected); Benzodiazepines Screen,Urine Not Detected (NotDetected); Cocaine Screen,Urine Not Detected (NotDetected); Methadone Screen, Urine Not Detected (NotDetected); Opiate Screen,Urine Not Detected (NotDetected); Oxycodone Screen, Urine Not Detected (NotDetected); Phencyclidine Screen,Urine Not Detected (NotDetected); Tricyclic Antidepressant,Urine Not Detected (NotDetected); Urn Cannabinoid Scrn Detected (NotDetected)
[2023-05-19 23:10] LABS: Basophils % (A) 0 %; Eosinophils # (A) 0.1 k/uL (0-0.7); Eosinophils % (A) 2 %; HGB 15.8 gm/dL (13.0-17.5); Lymphocytes # (A) 1.9 k/uL (1.0-4.8); Lymphocytes % (A) 25 %; MCH 30.7 pg (25.0-35.0); MCHC 34.4 g/dL (31.0-37.0); MCV 89.4 fL (80.0-100.0); Mean Platelet Volume 8.2; Monocytes # (A) 0.7 k/uL (0-1.0); Monocytes % (A) 9 %; Neutrophils # (A) 4.6 k/uL (1.3-7.7); Neutrophils % (A) 61 %; Platelet Count 242 k/uL (150-450); RBC 5.15 m/uL (4.30-5.90); RDW 13.1 % (11.5-15.5); WBC 7.6 k/uL (3.8-10.6)
[2023-05-19 23:45] LABS: African American GFR (CKD) >90 (>60 ml/min/1.73 sqM); Anion Gap 14 mmol/L; Blood Urea Nitrogen 16 mg/dL (9-20); Calcium 9.7 mg/dL (8.4-10.2); Carbon Dioxide 24 mmol/L (22-30); Chloride 105 mmol/L (98-107); Glucose 75 mg/dL (74-99); Non-African American GFR(CKD) >90 (>60 ml/min/1.73 sqM); Sodium 143 mmol/L (137-145)
[2023-05-19 23:46] LABS: Appearance,Urine Clear (Clear); Bilirubin,Urine Negative (Negative); Blood,Urine Negative (Negative); Color,Urine Colorless; Glucose,Urine (UA) Negative (Negative); Ketones,Urine Negative (Negative); Leukocyte Esterase,Urine Negative (Negative); Nitrite,Urine Negative (Negative); PH, Urine 6.5 (5.0-8.0); Protein,Urine Negative (Negative); Specific Gravity,Urine 1.013 (1.001-1.035); Urobilinogen,Urine <2.0 mg/dL (<2.0)
== END 2023-05-20 15:48 | disposition other institution (70) ==
LOC: EC 12:46
DX: F32.A Depression, unspecified (principal); R45.851 Suicidal ideations; J45.909 Unspecified asthma, uncomplicated; I10 Essential (primary) hypertension; F12.90 Cannabis use, unspecified, uncomplicated; Z86.59 Personal history of other mental and behavioral disorders; Z87.891 Personal history of nicotine dependence; Z79.899 Other long term (current) drug therapy; Z20.822 Contact with and (suspected) exposure to COVID-19
CPT/HCPCS: 36415; 80048; 80306; 81003; 82075; 85025; 87636; 99285

== ENCOUNTER 2023-07-28 11:16 | Observation (INO) | payer OTHER ==
[2023-07-28] MEDS ORDERED: PANTOPRAZOLE 40 MG/10 ML VIAL IVP STA (11:37)
[2023-07-28] MEDS ORDERED: ONDANSETRON 4 MG/2 ML VIAL IVP STA (11:37)
[2023-07-28] MEDS ORDERED: SODIUM CHLORIDE 0.9% 1,000 ML IV STA (11:37)
[2023-07-28] MEDS ORDERED: MORPHINE SULFATE 4 MG/ML SYRINGE IVP STA ×2 (11:37→13:41)
[2023-07-28 12:02] LABS: Basophils % (A) 1 %; Eosinophils # (A) 0.1 k/uL (0-0.7); Eosinophils % (A) 1 %; HCT 44.8 % (39.0-53.0); HGB 15.6 gm/dL (13.0-17.5); Lymphocytes # (A) 1.4 k/uL (1.0-4.8); Lymphocytes % (A) 24 %; MCH 30.6 pg (25.0-35.0); MCHC 34.7 g/dL (31.0-37.0); MCV 88.2 fL (80.0-100.0); Mean Platelet Volume 7.9; Monocytes # (A) 0.7 k/uL (0-1.0); Monocytes % (A) 11 %; Neutrophils # (A) 3.7 k/uL (1.3-7.7); Neutrophils % (A) 61 %; Platelet Count 237 k/uL (150-450); RBC 5.09 m/uL (4.30-5.90); RDW 12.1 % (11.5-15.5); WBC 6.1 k/uL (3.8-10.6)
[2023-07-28 12:17] LABS: Partial Thromboplastin Time 22.4 sec (22.0-30.0); Prothrombin Time 10.9 sec (10.0-12.5)
[2023-07-28 12:20] LABS: ALT 22 U/L (4-49); AST 25 U/L (17-59); African American GFR (CKD) >90 (>60 ml/min/1.73 sqM); Albumin 3.9 g/dL (3.5-5.0); Alkaline Phosphatase 49 U/L (38-126); Amylase 133 U/L (30-110); Anion Gap 9 mmol/L; Blood Urea Nitrogen 11 mg/dL (9-20); Calcium 8.2 mg/dL (8.4-10.2); Carbon Dioxide 27 mmol/L (22-30); Chloride 102 mmol/L (98-107); Glucose 118 mg/dL (74-99); Lipase 94 U/L (23-300); Non-African American GFR(CKD) >90 (>60 ml/min/1.73 sqM); Sodium 138 mmol/L (137-145); Total Bilirubin 0.8 mg/dL (0.2-1.3); Total Protein 6.4 g/dL (6.3-8.2)
[2023-07-28 13:11] LABS: Appearance,Urine Clear (Clear); Bilirubin,Urine Negative (Negative); Blood,Urine Negative (Negative); Color,Urine Yellow; Glucose,Urine (UA) Negative (Negative); Ketones,Urine Negative (Negative); Leukocyte Esterase,Urine Negative (Negative); Nitrite,Urine Negative (Negative); Protein,Urine Trace (Negative); Specific Gravity,Urine 1.018 (1.001-1.035); Urobilinogen,Urine <2.0 mg/dL (<2.0)
[2023-07-28] MEDS ORDERED: POTASSIUM CHLORIDE ER 20 MEQ TAB.ER PO STA (13:40)
[2023-07-28] MEDS ORDERED: SODIUM CHLORIDE 0.9% 500 ML 500 ML IV STA (13:40)
--- NOTE | 2023-07-28 15:03 | ED ---
General Adult HPI - General Source: patient, EMS, RN notes reviewed, old records reviewed Mode of arrival: EMS Limitations: no limitations <Vitaly Lewis - Last Filed: 07/28/23 14:59> <Saira Hassan - Last Filed: 07/29/23 01:11> - General Chief complaint: Nausea/Vomiting/Diarrhea Stated complaint: NVD Time Seen by Provider: 07/28/23 11:18 - History of Present Illness Initial comments: Patient is a 27-year-old male presents with department for abdominal pain is nonspecific, nausea and vomiting. Has been having nausea, vomiting, diarrhea for the last 5 days. Positive sick contacts at home. No significant past medical history. Endorses nonspecific left-sided abdominal pain. Presents for further evaluation at this time. No chest pain, shortness breath, upper respiratory symptoms. (Vitaly Lewis) - Related Data Home Medications Medication Instructions Recorded Confirmed amLODIPine [Norvasc] 5 mg PO DAILY 05/20/23 07/28/23 OLANZapine [ZyPREXA] 10 mg PO HS 07/28/23 07/28/23 busPIRone HCL 10 mg PO TID 07/28/23 07/28/23 lamoTRIgine [LaMICtal] 100 mg PO HS 07/28/23 07/28/23 traZODone HCL 150 mg PO HS PRN 07/28/23 07/28/23 Previous Rx's Medication Instructions Recorded FLUoxetine HCL [PROzac] 40 mg PO DAILY 30 Days #60 cap 03/02/23 carvediloL [Coreg] 6.25 mg PO BID-W/MEALS 30 Days #30 03/02/23 tab Allergies Allergy/AdvReac Type Severity Reaction Status Date / Time No Known Allergies Allergy Verified 07/28/23 15:33 Review of Systems ROS Other: All systems not noted in ROS Statement are negative. <Vitaly Lewis - Last Filed: 07/28/23 14:59> ROS Other: All systems not noted in ROS Statement are negative. <Saira Hassan - Last Filed: 07/29/23 01:11> ROS Statement: Those systems with pertinent positive or pertinent negative responses have been documented in the HPI. Review of Systems: CONST: Denies fever EYES: Denies blurry vision ENT: Denies nasal congestion C/V: Denies Chest pain RESP: Denies shortness of breath GI: Endorses abdominal pain : Denies dysuria SKIN: Denies rash. MSK: Denies joint pain. NEURO: Denies headache (Vitaly Lewis) Past Medical History Past Medical History: Asthma, Hypertension, Pneumonia Additional Past Medical History / Comment(s): Pt states he has had HTN in the past and was on HTN medication but was taken off of it and is monitoring his blood pressure. History of Any Multi-Drug Resistant Organisms: None Reported Past Surgical History: Hernia Repair Additional Past Surgical History / Comment(s): Umbilical hernia as a child Past Anesthesia/Blood Transfusion Reactions: No Reported Reaction Past Psychological History: Anxiety, Bipolar, Depression Smoking Status: Former smoker Past Alcohol Use History: None Reported Past Drug Use History: Marijuana - Past Family History Father Family Medical History: Diabetes Mellitus, Hypertension Additional Family Medical History / Comment(s): Father had bariatric surgery Mother Additional Family Medical History / Comment(s): Vision issues. <Vitaly Lewis - Last Filed: 07/28/23 14:59> General Exam Limitations: no limitations <Vitaly Lewis - Last Filed: 07/28/23 14:59> - General Exam Comments Initial Comments: General: Appears in mild distress. HEAD: Normal with no signs of head trauma. EYES: PERRLA, EOMI, conjunctiva normal, no discharge. ENT: Hearing grossly intact, normal oropharynx. RESPIRATORY: Clear breath sounds bilaterally. No wheezes, rales, or rhonchi. C/V: Regular rate and rhythm. S1 and S2 auscultated, no edema, peripheral pulses 2+ and intact throughout ABD: Abdomen is soft, nondistended. Tender palpation over the left side of his abdomen. No guarding. No rebound tenderness. No peritoneal signs. EXT: Normal range of motion, no obvious deformity SKIN: No rashes or lesions observed on exposed skin. NEURO: Alert and oriented x 4. (Vitaly Lewis) Course Vital Signs 07/28/23 07/28/23 07/28/23 11:25 18:00 19:43 Temperature 98.8 F 98.3 F 97.9 F Pulse Rate 87 80 68 Respiratory 18 16 18 Rate Blood Pressure 157/102 145/99 164/102 O2 Sat by Pulse 95 96 98 Oximetry 07/28/23 22:29 Temperature 98.7 F Pulse Rate 61 Respiratory 17 Rate Blood Pressure 124/77 O2 Sat by Pulse 97 Oximetry Medical Decision Making - Lab Data Result diagrams: 07/28/23 11:49 07/28/23 11:49 <Vitaly Lewis - Last Filed: 07/28/23 14:59> - Lab Data Result diagrams: 07/28/23 11:49 07/28/23 11:49 <Saira Hassan Vivian - Last Filed: 07/29/23 01:11> - Medical Decision Making Was pt. sent in by a medical professional or institution (, PA, COAL TRAM DRIVER, urgent care, hospital, or alf...) When possible be specific @ -No Did you speak to anyone other than the patient for history (EMS, parent, family, police, friend...)? What history was obtained from this source @ -No Did you review nursing and triage notes (agree or disagree)? Why? @ -I reviewed and agree with nursing and triage notes Were old charts reviewed (outside hosp., previous admission, EMS record, old EKG, old radiological studies, urgent care reports/EKG's, alf records)? Report findings @ -No old charts were reviewed Differential Diagnosis (chest pain, altered mental status, abdominal pain women, abdominal pain men, vaginal bleeding, weakness, fever, dyspnea, syncope, headache, dizziness, GI bleed, back pain, seizure, CVA, palpatations, mental health, musculoskeletal)? @ -Differential Abdominal Pain Men: Appendicitis, cholecystitis, diverticulosis, ischemic bowel, pancreatitis, hepatitis, UTI, gastroenteritis, AAA, incarcerated hernia, bowel obstruction, constipation, inflammatory bowel, hepatitis, peptic ulcer disease, splenic infarction, perforated viscus, testicular torsion, this is not meant to be an all-inclusive list EKG interpreted by me (3pts min.). @ -None done X-rays interpreted by me (1pt min.). @ -None done CT interpreted by me (1pt min.). @ -Pending U/S interpreted by me (1pt. min.). @ -None done What testing was considered but not performed or refused? (CT, X-rays, U/S, labs)? Why? @ -None What meds were considered but not given or refused? Why? @ -None Did you discuss the management of the patient with other professionals (professionals i.e. , PA, COAL TRAM DRIVER, lab, RT, psych nurse, social work administrator, chip crusher operator, teacher, special weapons and tactics officer, cyanide case hardener)? Give summary @ -No Was smoking cessation discussed for >3mins.? @ -No Was critical care preformed (if so, how long)? @ -No Were there social determinants of health that impacted care today? How? (Homelessness, low income, unemployed, alcoholism, drug addiction, transportation, low edu. Level, literacy, decrease access to med. care, assisted, rehab)? @ -No Was there de-escalation of care discussed even if they declined (Discuss DNR or withdrawal of care, Hospice)? DNR status @ -No What co-morbidities impacted this encounter? (DM, HTN, Smoking, COPD, CAD, C ancer, CVA, ARF, Chemo, Hep., AIDS, mental health diagnosis, sleep apnea, morbid obesity)? @ -None Was patient admitted / discharged? Hospital course, mention meds given and route, prescriptions, significant lab abnormalities, going to OR and other pertinent info. @ -The patient's presentation and physical exam, patient presents complaining of nausea, vomiting, diarrhea and abdominal pain. We will obtain abdominal labs. He'll be symptomatically treated with IV fluids, morphine, Protonix, Zofran. He was in agreement with this plan. Patient's labs were remarkable for hypokalemia at 3.0. Remainder the labs relatively unremarkable. I discussed results with the patient, and he is requesting CT imaging which I believe is responsible concerning is still having pain. He'll be given additional IV morphine and potassium as well as additional fluids. He was in agreement this plan. At this time, it is the end of my shift.. Patient signed out to Dr. Hassan pending results of CT. Undiagnosed new problem with uncertain prognosis? @ -No Drug Therapy requiring intensive monitoring for toxicity (Heparin, Nitro, Insulin, Cardizem)? @ -No Were any procedures done? @ -No (Vitaly Lewis) Patient evaluated by myself. CT does return and is negative. Patient continues to have nausea and therefore he was given a dose of Reglan and Benadryl. Reevaluation demonstrates continued nausea. Due to intractable nausea and vomiting, I did recommend admission. Spoke with Dr. Waddell who agreed to admission (Damer,Saira A) - Lab Data Lab Results 07/28/23 07/28/23 07/28/23 Range/Units 11:49 11:49 11:49 WBC 6.1 (3.8-10.6) k/uL RBC 5.09 (4.30-5.90) m/uL Hgb 15.6 (13.0-17.5) gm/dL Hct 44.8 (39.0-53.0) % MCV 88.2 (80.0-100.0) fL MCH 30.6 (25.0-35.0) pg MCHC 34.7 (31.0-37.0) g/dL RDW 12.1 (11.5-15.5) % Plt Count 237 (150-450) k/uL MPV 7.9 Neutrophils % 61 % Lymphocytes % 24 % Monocytes % 11 % Eosinophils % 1 % Basophils % 1 % Neutrophils # 3.7 (1.3-7.7) k/uL Lymphocytes # 1.4 (1.0-4.8) k/uL Monocytes # 0.7 (0-1.0) k/uL Eosinophils # 0.1 (0-0.7) k/uL Basophils # 0.0 (0-0.2) k/uL PT 10.9 (10.0-12.5) sec INR 1.0 (<1.2) APTT 22.4 (22.0-30.0) sec Sodium (137-145) mmol/L Potassium (3.5-5.1) mmol/L Chloride (98-107) mmol/L Carbon Dioxide (22-30) mmol/L Anion Gap mmol/L BUN (9-20) mg/dL Creatinine (0.66-1.25) mg/dL Est GFR (CKD-EPI)AfAm (>60 ml/min/1.73 sqM) Est GFR (CKD-EPI)NonAf (>60 ml/min/1.73 sqM) Glucose (74-99) mg/dL Plasma Lactic Acid [place] (0.7-2.0) mmol/L Calcium (8.4-10.2) mg/dL Total Bilirubin (0.2-1.3) mg/dL AST (17-59) U/L ALT (4-49) U/L Alkaline Phosphatase (38-126) U/L Total Protein (6.3-8.2) g/dL Albumin (3.5-5.0) g/dL Amylase (30-110) U/L Lipase (23-300) U/L Urine Color Yellow Urine Appearance Clear (Clear) Urine pH 6.0 (5.0-8.0) Ur Specific [place] 1.018 (1.001-1.035) Urine Protein Trace H (Negative) Urine Glucose (UA) Negative (Negative) Urine Ketones Negative (Negative) Urine Blood Negative (Negative) Urine Nitrite Negative (Negative) Urine Bilirubin Negative (Negative) Urine Urobilinogen <2.0 (<2.0) mg/dL Ur Leukocyte Esterase Negative (Negative) Influenza Type A (PCR) (Not Detectd) Influenza Type B (PCR) (Not Detectd) RSV (PCR) (Not Detectd) SARS-CoV-2 (PCR) (Not Detectd) 07/28/23 07/28/23 07/28/23 Range/Units 11:49 11:49 11:49 WBC (3.8-10.6) k/uL RBC (4.30-5.90) m/uL Hgb (13.0-17.5) gm/dL Hct (39.0-53.0) % MCV (80.0-100.0) fL MCH (25.0-35.0) pg MCHC (31.0-37.0) g/dL RDW (11.5-15.5) % Plt Count (150-450) k/uL MPV Neutrophils % % Lymphocytes % % Monocytes % % Eosinophils % % Basophils % % Neutrophils # (1.3-7.7) k/uL Lymphocytes # (1.0-4.8) k/uL Monocytes # (0-1.0) k/uL Eosinophils # (0-0.7) k/uL Basophils # (0-0.2) k/uL PT (10.0-12.5) sec INR (<1.2) APTT (22.0-30.0) sec Sodium 138 (137-145) mmol/L Potassium 3.0 L (3.5-5.1) mmol/L Chloride 102 (98-107) mmol/L Carbon Dioxide 27 (22-30) mmol/L Anion Gap 9 mmol/L BUN 11 (9-20) mg/dL Creatinine 0.87 (0.66-1.25) mg/dL Est GFR (CKD-EPI)AfAm >90 (>60 ml/min/1.73 sqM) Est GFR (CKD-EPI)NonAf >90 (>60 ml/min/1.73 sqM) Glucose 118 H (74-99) mg/dL Plasma Lactic Acid [place] 2.0 (0.7-2.0) mmol/L Calcium 8.2 L (8.4-10.2) mg/dL Total Bilirubin 0.8 (0.2-1.3) mg/dL AST 25 (17-59) U/L ALT 22 (4-49) U/L Alkaline Phosphatase 49 (38-126) U/L Total Protein 6.4 (6.3-8.2) g/dL Albumin 3.9 (3.5-5.0) g/dL Amylase 133 H (30-110) U/L Lipase 94 (23-300) U/L Urine Color Urine Appearance (Clear) Urine pH (5.0-8.0) Ur Specific [place] (1.001-1.035) Urine Protein (Negative) Urine Glucose (UA) (Negative) Urine Ketones (Negative) Urine Blood (Negative) Urine Nitrite (Negative) Urine Bilirubin (Negative) Urine Urobilinogen (<2.0) mg/dL Ur Leukocyte Esterase (Negative) Influenza Type A (PCR) Not Detected (Not Detectd) Influenza Type B (PCR) Not Detected (Not Detectd) RSV (PCR) Not Detected (Not Detectd) SARS-CoV-2 (PCR) Not Detected (Not Detectd) Disposition <Vitaly Lewis - Last Filed: 07/28/23 14:59> Is patient prescribed a controlled substance at d/c from ED?: No Time of Disposition: 16:51 Decision to Admit Reason: Admit from EC Decision Date: 07/28/23 Decision Time: 16:51 <Saira Hassan - Last Filed: 07/29/23 01:11> Clinical Impression: Intractable nausea and vomiting, Cannabis use disorder Disposition: ADMITTED IP TO THIS [facility] Condition: Stable
--- NOTE | 2023-07-28 15:26 | CT ---
EXAMINATION TYPE: CT abdomen pelvis w con CT DLP: 997.4 mGycm, Automated exposure control for dose reduction was used. DATE OF EXAM: 07/28/2023 3:08 PM COMPARISON: 10/22/2022 CLINICAL INDICATION:Male, 27 years old with history of abd pain, nonlocalized; Abdominal pain and vom iting. TECHNIQUE: Axial CT abdomen pelvis w con;Sagittal and coronal reformats were created on a separate w orkstation. Contrast used:100ml mL of Isovue 300 with IV Contrast, (none if empty) Oral contrast used: without Oral Contrast (none if empty) FINDINGS: LOWER CHEST: Unremarkable ABDOMEN LIVER: Unremarkable GALLBLADDER AND BILE DUCTS: Unremarkable. PANCREAS: Unremarkable. SPLEEN: Unremarkable. ADRENAL GLANDS: Unremarkable. KIDNEYS AND URETERS: No evidence of hydronephrosis or renal calculus. The ureters are unremarkable. PELVIS BLADDER: Unremarkable REPRODUCTIVE: Unremarkable. ABDOMEN & PELVIS STOMACH AND BOWEL: No evidence of bowel obstruction. The appendix is normal. PERITONEUM/RETROPERITONEUM: No evidence of pneumoperitoneum or free fluid. VASCULATURE: No evidence of aortic aneurysm. MUSCULOSKELETAL: No acute osseous abnormalities LYMPH NODES: No gross evidence for lymphadenopathy. SOFT TISSUE/ABDOMINAL WALL: Unremarkable IMPRESSION: No evidence for acute abdominal process. No obstructive uropathy or renal calculus. The appendix is n ormal.
[2023-07-28] MEDS ORDERED: METOCLOPRAMIDE 5 MG/ML 2 ML VIAL IVP STA (15:54)
[2023-07-28] MEDS ORDERED: diphenhydrAMINE 50 MG/ML 1 ML VIAL IVP STA (15:55)
[2023-07-28] MEDS ORDERED: NALOXONE 0.4 MG/ML 1 ML VIAL IV PRN (16:55)
[2023-07-28] MEDS ORDERED: traZODone HCL 100 MG TAB PO PRN (17:26)
[2023-07-28] MEDS ORDERED: METOCLOPRAMIDE 5 MG/ML 2 ML VIAL IVP PRN (17:39)
--- NOTE | 2023-07-28 17:42 | P.HPIM ---
History of Present Illness H&P Date: 07/28/23 27 year old M with PMH of a bipolar disorder. He presents the ED with complaints of intractable nausea and vomiting, diarrhea and lower abdominal pain has been ongoing for the past 5 days. He denies any food intake out of the ordinary. He denies smoking cigarettes, illicit drugs or drinking alcohol. Quit 1 month ago. He reports abdominal pain, sharp and stabbing, 9 out of 10 in severity with no r adiation. No alleviating or aggravating factors. States that his dad is sick as well with similar symptoms at home. In the ED, he underwent extensive evaluation. BP 157/102. Vital signs otherwise stable. CBC unremarkable. Correlation panel within normal limits. CMP calcium of 3, glucose 118, calcium 8.2. Lactic acid 2. Amylase 133. Lipase within normal limits. Urinalysis trace protein. COVID-19, influenza, RSV negative. CT AP with no acute findings. Patient is admitted for further management and workup. General: non toxic, no distress, appears at stated age Derm: warm, dry Head: atraumatic, normocephalic, symmetric Eyes: EOMI, no lid lag, anicteric sclera Mouth: no lip lesion, mucus membranes moist Cardiovascular: S1S2 reg, no murmur, positive posterior tibial pulse bilateral, Lungs: CTA bilateral, no rhonchi, no rales , no accessory muscle use Abdominal: soft, TTP bilateral abdomen lower quadrant without rebound, no guarding, no appreciable organomegaly Ext: no gross muscle atrophy, no edema, no contractures Neuro: no focal neuro deficits Psych: Alert, oriented, appropriate affect Based on my assessment of this patient, this patient meets a high complexity level of care. Patient has an acute diagnosis of intractable nausea and vomiting that poses a threat to life or bodily function. Intractable nausea and vomiting: Likely gastroenteritis. Zofran 4 mg IV Q8H, Reglan 5 mg IV Q6H PRN for N/V. Toradol 15 mg IV Q6H PRN for severe pain. Abdominal pain: Related to above. Hypokalemia: Replaced with KCl 40 meq PO x 1. Elevated amylase: Due to N/V. Bipolar disorder: Resume home medications. CODE STATUS: FULL CODE DVT Prophylaxis: SCD GI Prophylaxis: Protonix IV Designated medical POA if patient is not able to make medical decisions for themselves: I have reviewed the following crm consultant notes: I have reviewed the results of the following tests: As above. I have ordered the following tests: As above. I have discussed the care of this patient with the following independent historian: I have independently interpreted the following test below: I have discussed the management of this patient with the following physician: Discussed with Dr. Hassan. Past Medical History Past Medical History: Asthma, Hypertension, Pneumonia Additional Past Medical History / Comment(s): Pt states he has had HTN in the past and was on HTN medication but was taken off of it and is monitoring his blood pressure. History of Any Multi-Drug Resistant Organisms: None Reported Past Surgical History: Hernia Repair Additional Past Surgical History / Comment(s): Umbilical hernia as a child Past Anesthesia/Blood Transfusion Reactions: No Reported Reaction Past Psychological History: Anxiety, Bipolar, Depression Smoking Status: Former smoker Past Alcohol Use History: None Reported Past Drug Use History: Marijuana - Past Family History Father Family Medical History: Diabetes Mellitus, Hypertension Additional Family Medical History / Comment(s): Father had bariatric surgery Mother Additional Family Medical History / Comment(s): Vision issues. Medications and Allergies Home Medications Medication Instructions Recorded Confirmed Type FLUoxetine HCL [PROzac] 40 mg PO DAILY 30 Days #60 cap 03/02/23 07/28/23 Rx carvediloL [Coreg] 6.25 mg PO BID-W/MEALS 30 Days #30 03/02/23 07/28/23 Rx tab amLODIPine [Norvasc] 5 mg PO DAILY 05/20/23 07/28/23 History OLANZapine [ZyPREXA] 10 mg PO HS 07/28/23 07/28/23 History busPIRone HCL 10 mg PO TID 07/28/23 07/28/23 History lamoTRIgine [LaMICtal] 100 mg PO HS 07/28/23 07/28/23 History traZODone HCL 150 mg PO HS PRN 07/28/23 07/28/23 History Allergies Allergy/AdvReac Type Severity Reaction Status Date / Time No Known Allergies Allergy Verified 07/28/23 15:33 Physical Exam Vitals: Vital Signs Temp Pulse Resp BP Pulse Ox 07/28/23 11:25 98.8 F 87 18 157/102 95 Intake and Output 07/28/23 07/28/23 07/28/23 06:59 14:59 22:59 Other: Weight 90.718 kg Results CBC & Chem 7: 07/28/23 11:49 07/28/23 11:49 Labs: Abnormal Lab Results - Last 24 Hours (Table) 07/28/23 07/28/23 Range/Units 11:49 11:49 Potassium 3.0 L (3.5-5.1) mmol/L Glucose 118 H (74-99) mg/dL Calcium 8.2 L (8.4-10.2) mg/dL Amylase 133 H (30-110) U/L Urine Protein Trace H (Negative)
[2023-07-28] MEDS: SODIUM CHLORIDE 0.9% 1,000 ML IV SCH (18:03)
[2023-07-28 18:19] LABS: Amphetamine Screen,Urine Not Detected (NotDetected); Barbiturate Screen,Urine Not Detected (NotDetected); Benzodiazepines Screen,Urine Not Detected (NotDetected); Cocaine Screen,Urine Not Detected (NotDetected); Methadone Screen, Urine Not Detected (NotDetected); Opiate Screen,Urine Not Detected (NotDetected); Oxycodone Screen, Urine Not Detected (NotDetected); Phencyclidine Screen,Urine Not Detected (NotDetected); Tricyclic Antidepressant,Urine Not Detected (NotDetected); Urn Cannabinoid Scrn Detected (NotDetected)
[2023-07-28] MEDS: carvediloL 6.25 MG TAB PO SCH (19:44)
[2023-07-28] MEDS ORDERED: OLANZapine 10 MG TAB PO SCH (21:00)
[2023-07-28] MEDS ORDERED: lamoTRIgine 100 MG TAB PO SCH (21:00)
[2023-07-28] MEDS: busPIRone HCl 10 MG TAB PO SCH (21:42)
[2023-07-29] MEDS: SODIUM CHLORIDE 0.9% 1,000 ML IV SCH ×3 (01:47→16:17)
[2023-07-29 02:30] VITALS: TEMP 98.4
[2023-07-29] MEDS: KETOROLAC 15 MG/ML 1 ML VIAL IVP PRN ×2 (05:53→14:05)
[2023-07-29] MEDS: ONDANSETRON 4 MG/2 ML VIAL IVP PRN ×2 (05:54→14:05)
[2023-07-29] MEDS: carvediloL 6.25 MG TAB PO SCH (08:34)
[2023-07-29] MEDS: busPIRone HCl 10 MG TAB PO SCH ×2 (08:35→16:20)
[2023-07-29] MEDS ORDERED: FLUoxetine HCL 20 MG CAP PO SCH (09:00)
[2023-07-29] MEDS ORDERED: PANTOPRAZOLE 40 MG/10 ML VIAL IV SCH (09:00)
[2023-07-29] MEDS ORDERED: amLODIPine 5 MG TAB PO SCH (09:00)
--- NOTE | 2023-07-29 11:13 | P.PN ---
Subjective Progress Note Date: 07/29/23 27 year old M with PMH of a bipolar disorder. He presents the ED with complaints of intractable nausea and vomiting, diarrhea and lower abdominal pain has been ongoing for the past 5 days. He denies any food intake out of the ordinary. He denies smoking cigarettes, illicit drugs or drinking alcohol. Quit 1 month ago. He reports abdominal pain, sharp and stabbing, 9 out of 10 in severity with no radiation. No alleviating or aggravating factors. States that his dad is sick as well with similar symptoms at home. In the ED, he underwent extensive evaluation. BP 157/102. Vital signs otherwise stable. CBC unremarkable. Correlation panel within normal limits. CMP calcium of 3, glucose 118, calcium 8.2. Lactic acid 2. Amylase 133. Lipase within normal limits. Urinalysis trace protein. COVID-19, influenza, RSV negative. CT AP with no acute findings. Patient is admitted for further management and workup. Treated with Zofran and Reglan PRN for N/V. Also Toradol PRN for pain. 07/29 Patient was seen and examined. He reports nausea but no vomiting. No abdominal pain. Currently on CLD. Hopefully, he can be discharged home if able to tolerate regular diet and potassium is normalized. General: non toxic, no distress, appears at stated age Derm: warm, dry Head: atraumatic, normocephalic, symmetric Eyes: EOMI, no lid lag, anicteric sclera Mouth: no lip lesion, mucus membranes moist Cardiovascular: S1S2 reg, no murmur Lungs: CTA bilateral, no rhonchi, no rales , no accessory muscle use Abdominal: soft, mild TTP bilateral abdomen lower quadrant without rebound, no guarding, no appreciable organomegaly Ext: no gross muscle atrophy, no edema, no contractures Neuro: no focal neuro deficits Psych: Alert, oriented, appropriate affect Based on my assessment of this patient, this patient meets a high complexity level of care. Patient has an acute diagnosis of intractable nausea and vomiting that poses a threat to life or bodily function. Intractable nausea and vomiting: Likely gastroenteritis. Zofran 4 mg IV Q8H, Reglan 5 mg IV Q6H PRN for N/V. Toradol 15 mg IV Q6H PRN for severe pain. Abdominal pain: Related to above. Hypokalemia: Replaced with KCl 40 meq PO x 1. Elevated amylase: Due to N/V. Bipolar disorder: Resume home medications. CODE STATUS: FULL CODE DVT Prophylaxis: SCD GI Prophylaxis: Protonix IV Designated medical POA if patient is not able to make medical decisions for themselves: I have reviewed the following business operations consultant notes: I have reviewed the results of the following tests: I have ordered the following tests: Pending: CBC, BMP. I have discussed the care of this patient with the following independent historian: I have independently interpreted the following test below: I have discussed the management of this patient with the following physician: Objective - Vital Signs Vital signs: Vital Signs Temp 98.4 F 07/29/23 02:00 Pulse 78 07/29/23 08:28 Resp 15 07/29/23 08:28 BP 151/96 07/29/23 08:28 Pulse Ox 97 07/29/23 08:28 FiO2 Intake & Output 07/28/23 07/29/23 07/29/23 18:59 06:59 18:59 Intake Total 540 Balance 540 Weight 90.718 kg Intake: Oral 540 - Labs CBC & Chem 7: 07/28/23 11:49 07/28/23 11:49 Labs: Abnormal Lab Results - Last 24 Hours (Table) 07/28/23 07/28/23 07/28/23 Range/Units 11:49 11:49 17:54 Potassium 3.0 L (3.5-5.1) mmol/L Glucose 118 H (74-99) mg/dL Calcium 8.2 L (8.4-10.2) mg/dL Amylase 133 H (30-110) U/L Urine Protein Trace H (Negative) U Marijuana (THC) Screen Detected H (NotDetected)
[2023-07-29 11:16] LABS: Basophils # (A) 0.03 X 10*3/uL (0.00-0.10); Basophils % (A) 0.5 %; Eosinophils # (A) 0.06 X 10*3/uL (0.04-0.35); HCT 40.6 % (39.6-50.0); HGB 14.2 g/dL (13.0-17.0); Lymphocytes # (A) 1.65 X 10*3/uL (0.90-5.00); Lymphocytes % (A) 28.4 %; MCH 30.2 pg (27.0-32.0); MCV 86.4 FL (80.0-97.0); Mean Platelet Volume 10.7 FL (9.5-12.2); Monocytes # (A) 0.71 X 10*3/uL (0.20-1.00); Monocytes % (A) 12.2 %; NRBC Per 100 WBC 0 X 10*3/uL (0.00-0.01); Neutrophils # (A) 3.33 X 10*3/uL (1.80-7.70); Neutrophils % (A) 57.6 %; Platelet Count 220 X 10*3/uL (140-440); RDW 11.7 % (11.5-14.5)
[2023-07-29 11:46] LABS: BUN/Creat Ratio 7.82 Ratio (12.00-20.00); Blood Urea Nitrogen 8.6 mg/dL (9.0-27.0); Calcium 8.7 mg/dL (8.7-10.3); Chloride 102 mmol/L (96-109); Glucose 98 mg/dL (70-110); Potassium 3.2 mmol/L (3.5-5.5); Sodium 141 mmol/L (135-145)
[2023-07-29] MEDS ORDERED: POTASSIUM CHLORIDE ER 20 MEQ TAB.ER PO STA (13:58)
[2023-07-29 17:42] VITALS: BP 148/95; PULSE 82; RESP 18
== END 2023-07-29 17:25 | disposition home or self-care (01) ==
LOC: EC 11:16 → 6NMEDSUR 17:01
PROVIDERS: ADMIT Family Medicine; ATTEND Family Medicine
DX: R11.2 Nausea with vomiting, unspecified (principal); E87.6 Hypokalemia; R10.30 Lower abdominal pain, unspecified; R74.8 Abnormal levels of other serum enzymes; R19.7 Diarrhea, unspecified; I10 Essential (primary) hypertension; J45.909 Unspecified asthma, uncomplicated; F12.90 Cannabis use, unspecified, uncomplicated; F31.9 Bipolar disorder, unspecified; F41.9 Anxiety disorder, unspecified; Z11.52 Encounter for screening for COVID-19; Z11.59 Encounter for screening for other viral diseases; Z79.899 Other long term (current) drug therapy; Z87.891 Personal history of nicotine dependence; Z87.01 Personal history of pneumonia (recurrent); Z98.890 Other specified postprocedural states; Z83.3 Family history of diabetes mellitus; Z82.49 Family history of ischemic heart disease and other diseases of the circulatory system; Z83.49 Family history of other endocrine, nutritional and metabolic diseases
CPT/HCPCS: 96376 ×2; 96361 ×2; 96374; 96375 ×2; 99285; 36415; 80053; 80048; 82150; 83605; 83690; 85025 ×2; 85610; 85730; 81003; 80306; 87636; 74177; G0378 ×2; J2270; J1200; J2765; J2405 ×2; J1885; C9113 ×2; Q9967

== ENCOUNTER 2023-11-23 17:08 | Emergency (ER) | payer OTHER ==
[2023-11-23 18:14] VITALS: PULSE 100
[2023-11-23 19:18] LABS: ALT 17 U/L (4-49); AST 27 U/L (17-59); African American GFR (CKD) >90 (>60 ml/min/1.73 sqM); Albumin 4.7 g/dL (3.5-5.0); Alkaline Phosphatase 55 U/L (38-126); Amylase 131 U/L (30-110); Anion Gap 13 mmol/L; Blood Urea Nitrogen 9 mg/dL (9-20); Calcium 9.6 mg/dL (8.4-10.2); Carbon Dioxide 24 mmol/L (22-30); Chloride 99 mmol/L (98-107); Glucose 108 mg/dL (74-99); Lipase 49 U/L (23-300); Non-African American GFR(CKD) 83 (>60 ml/min/1.73 sqM); Potassium 3.3 mmol/L (3.5-5.1); Sodium 136 mmol/L (137-145); Total Bilirubin 0.9 mg/dL (0.2-1.3); Total Protein 7.3 g/dL (6.3-8.2)
[2023-11-23 19:31] LABS: Basophils % (A) 0 %; Eosinophils % (A) 0 %; HCT 52.6 % (39.0-53.0); HGB 18.1 gm/dL (13.0-17.5); Lymphocytes % (A) 10 %; MCH 30.1 pg (25.0-35.0); MCHC 34.4 g/dL (31.0-37.0); MCV 87.7 fL (80.0-100.0); Mean Platelet Volume 9.1; Monocytes % (A) 10 %; Neutrophils # (A) 8.6 k/uL (1.3-7.7); Neutrophils % (A) 80 %; Platelet Count 296 k/uL (150-450); RDW 13.1 % (11.5-15.5); WBC 10.8 k/uL (3.8-10.6)
[2023-11-23] MEDS: ONDANSETRON 4 MG/2 ML VIAL IVP STA (19:40)
[2023-11-23] MEDS: SODIUM CHLORIDE 0.9% 1,000 ML IV STA (19:40)
[2023-11-23] MEDS: ONDANSETRON ODT 8 MG TAB.RAPDIS PO STA (19:42)
[2023-11-23] MEDS: DICYCLOMINE 10 MG/ML 2 ML AMP IM STA (20:09)
[2023-11-23] MEDS: FAMOTIDINE 20 MG/2 ML VIAL IV STA (20:09)
[2023-11-23] MEDS: SODIUM CHLORIDE 0.9% 1,000 ML IV ONE (20:44)
[2023-11-23] MEDS: METOCLOPRAMIDE 5 MG/ML 2 ML VIAL IVP STA (20:44)
--- NOTE | 2023-11-23 20:56 | ED ---
Abdominal Pain HPI - General Chief Complaint: Abdominal Pain Stated Complaint: NV Time Seen by Provider: 11/23/23 17:49 Source: patient Mode of arrival: ambulatory Limitations: no limitations - History of Present Illness MD Complaint: abdominal pain -: days(s) (2) Location: diffuse Radiation: none Migration to: no migration Severity: moderate Quality: aching Consistency: constant Improves With: nothing Worsens With: nothing Associated Symptoms: nausea, vomiting, diarrhea - Related Data Home Medications Medication Instructions Recorded Confirmed amLODIPine [Norvasc] 5 mg PO DAILY 05/20/23 07/28/23 OLANZapine [ZyPREXA] 10 mg PO HS 07/28/23 07/28/23 busPIRone HCL 10 mg PO TID 07/28/23 07/28/23 lamoTRIgine [LaMICtal] 100 mg PO HS 07/28/23 07/28/23 traZODone HCL 150 mg PO HS PRN 07/28/23 07/28/23 Previous Rx's Medication Instructions Recorded FLUoxetine HCL [PROzac] 40 mg PO DAILY 30 Days #60 cap 03/02/23 carvediloL [Coreg] 6.25 mg PO BID-W/MEALS 30 Days #30 03/02/23 tab Ondansetron Odt [Zofran Odt] 4 mg PO Q8HR PRN #30 tab 07/29/23 Pantoprazole Sodium [Protonix] 40 mg PO AC-BRKFST #30 tab 07/29/23 Allergies Allergy/AdvReac Type Severity Reaction Status Date / Time No Known Allergies Allergy Verified 07/28/23 15:33 Review of Systems ROS Statement: Those systems with pertinent positive or pertinent negative responses have been documented in the HPI. ROS Other: All systems not noted in ROS Statement are negative. Constitutional: Denies: fever, chills, weakness Respiratory: Denies: cough, dyspnea Cardiovascular: Denies: chest pain, palpitations, edema, syncope Gastrointestinal: Reports: abdominal pain, nausea, vomiting, diarrhea. Denies: constipation, hematemesis, melena, hematochezia Genitourinary: Denies: dysuria, hematuria, testicular pain, testicular mass Musculoskeletal: Denies: back pain Skin: Denies: rash Neurological: Denies: headache, weakness, numbness Past Medical History Past Medical History: Asthma, Hypertension, Pneumonia Additional Past Medical History / Comment(s): Pt states he has had HTN in the past and was on HTN medication but was taken off of it and is monitoring his blood pressure. History of Any Multi-Drug Resistant Organisms: None Reported Past Surgical History: Hernia Repair Additional Past Surgical History / Comment(s): Umbilical hernia as a child Past Anesthesia/Blood Transfusion Reactions: No Reported Reaction Past Psychological History: Anxiety, Bipolar, Depression Smoking Status: Former smoker Past Alcohol Use History: None Reported Past Drug Use History: Marijuana - Past Family History Father Family Medical History: Diabetes Mellitus, Hypertension Additional Family Medical History / Comment(s): Father had bariatric surgery Mother Additional Family Medical History / Comment(s): Vision issues. General Exam Limitations: no limitations General appearance: alert, in no apparent distress Head exam: Present: atraumatic, normocephalic Eye exam: Present: normal appearance. Absent: scleral icterus, conjunctival injection ENT exam: Present: normal oropharynx Neck exam: Present: normal inspection Respiratory exam: Present: normal lung sounds bilaterally. Absent: respiratory distress, wheezes, rales, rhonchi, stridor Cardiovascular Exam: Present: regular rate, normal rhythm, normal heart sounds. Absent: systolic murmur, diastolic murmur, rubs, gallop GI/Abdominal exam: Present: soft. Absent: distended, tenderness, guarding, rebound, rigid, mass, pulsatile mass, hernia Extremities exam: Present: normal inspection, normal capillary refill. Absent: pedal edema, calf tenderness Back exam: Present: normal inspection. Absent: CVA tenderness (R), CVA tenderness (L) Neurological exam: Present: alert Skin exam: Present: warm, dry, intact, normal color. Absent: rash Course Vital Signs 11/23/23 11/23/23 17:34 21:01 Temperature 99 F 99.3 F Pulse Rate 100 100 Respiratory 20 18 Rate Blood Pressure 148/98 148/79 O2 Sat by Pulse 97 99 Oximetry Medical Decision Making - Medical Decision Making Was pt. sent in by a medical professional or institution (, [facility], MACHINE II TRIMMER, urgent care, hospital, or group home...) When possible be specific @ -[No] Did you speak to anyone other than the patient for history (EMS, parent, family, police, friend...)? What history was obtained from this source @ -[No] Did you review nursing and triage notes (agree or disagree)? Why? @ -[I reviewed and agree with nursing and triage notes] Were old charts reviewed (outside hosp., previous admission, EMS record, old EKG, old radiological studies, urgent care reports/EKG's, group home records)? Report findings @ -[No old charts were reviewed] Differential Diagnosis (chest pain, altered mental status, abdominal pain women, abdominal pain men, vaginal bleeding, weakness, fever, dyspnea, syncope, headache, dizziness, GI bleed, back pain, seizure, CVA, palpatations, mental health, musculoskeletal)? @ -[Differential Abdominal Pain Men: Appendicitis, cholecystitis, diverticulosis, ischemic bowel, pancreatitis, hepatitis, UTI, gastroenteritis, AAA, incarcerated hernia, bowel obstruction, constipation, inflammatory bowel, hepatitis, peptic ulcer disease, splenic infarction, perforated viscus, testicular torsion, this is not meant to be an all-inclusive list EKG interpreted by me (3pts min.). @ -[As above] X-rays interpreted by me (1pt min.). @ -[None done] CT interpreted by me (1pt min.). @ -[None done] U/S interpreted by me (1pt. min.). @ -[None done] What testing was considered but not performed or refused? (CT, X-rays, U/S, labs)? Why? @ -[None] What meds were considered but not given or refused? Why? @ -[None] Did you discuss the management of the patient with other professionals (pr ofessionals i.e. , PA, MACHINE II TRIMMER, lab, RT, psych nurse, long term care social worker, colloid mill operator, teacher, safety and security officer, cyanide case hardener)? Give summary @ -[No] Was smoking cessation discussed for >3mins.? @ -[No] Was critical care preformed (if so, how long)? @ -[No] Were there social determinants of health that impacted care today? How? (Homelessness, low income, unemployed, alcoholism, drug addiction, transportation, low edu. Level, literacy, decrease access to med. care, [facility], rehab)? @ -[No] Was there de-escalation of care discussed even if they declined (Discuss DNR or withdrawal of care, Hospice)? DNR status @ -[No] What co-morbidities impacted this encounter? (DM, HTN, Smoking, COPD, CAD, Cancer, CVA, ARF, Chemo, Hep., AIDS, mental health diagnosis, sleep apnea, morbid obesity)? @ -[None] Was patient admitted / discharged? Hospital course, mention meds given and route, prescriptions, significant lab abnormalities, going to OR and other pertinent info. @ -[This patient is a 27-year-old man here to have evaluation of abdominal pain going on for 2 days now. The patient's physical exam does not reveal any concerning tenderness. The lab workup does reveal mild leukocytosis but negative inflammatory markers. The patient did have improvement with treatment here. We did discuss the appropriate further care and follow-up as well as return parameters. Undiagnosed new problem with uncertain prognosis? @ -[No] Drug Therapy requiring intensive monitoring for toxicity (Heparin, Nitro, Insulin, Cardizem)? @ -[No] Were any procedures done? @ -[No] Diagnosis/symptom? @ -[Acute abdominal pain Acute, or Chronic, or Acute on Chronic? @ -[Acute Uncomplicated (without systemic symptoms) or Complicated (systemic symptoms)? @ -[Uncomplicated Side effects of treatment? @ -[No] Exacerbation, Progression, or Severe Exacerbation? @ -[No] Poses a threat to life or bodily function? How? (Chest pain, USA, ID, pneumonia, PE, COPD, DKA, ARF, appy, cholecystitis, CVA, Diverticulitis, Homicidal, S uicidal, threat to staff... and all critical care pts) @ -[No] - Lab Data Result diagrams: 11/23/23 18:36 11/23/23 18:36 Lab Results 11/23/23 11/23/23 11/23/23 Range/Units 18:36 18:36 18:36 WBC 10.8 H (3.8-10.6) k/uL RBC 6.00 H (4.30-5.90) m/uL Hgb 18.1 H (13.0-17.5) gm/dL Hct 52.6 (39.0-53.0) % MCV 87.7 (80.0-100.0) fL MCH 30.1 (25.0-35.0) pg MCHC 34.4 (31.0-37.0) g/dL RDW 13.1 (11.5-15.5) % Plt Count 296 (150-450) k/uL MPV 9.1 Neutrophils % 80 % Lymphocytes % 10 % Monocytes % 10 % Eosinophils % 0 % Basophils % 0 % Neutrophils # 8.6 H (1.3-7.7) k/uL Lymphocytes # 1.0 (1.0-4.8) k/uL Monocytes # 1.0 (0-1.0) k/uL Eosinophils # 0.0 (0-0.7) k/uL Basophils # 0.0 (0-0.2) k/uL Sodium 136 L (137-145) mmol/L Potassium 3.3 L (3.5-5.1) mmol/L Chloride 99 (98-107) mmol/L Carbon Dioxide 24 (22-30) mmol/L Anion Gap 13 mmol/L BUN 9 (9-20) mg/dL Creatinine 1.18 (0.66-1.25) mg/dL Est GFR (CKD-EPI)AfAm >90 (>60 ml/min/1.73 sqM) Est GFR (CKD-EPI)NonAf 83 (>60 ml/min/1.73 sqM) Glucose 108 H (74-99) mg/dL Plasma Lactic Acid Gorge 1.7 (0.7-2.0) mmol/L Calcium 9.6 (8.4-10.2) mg/dL Total Bilirubin 0.9 (0.2-1.3) mg/dL AST 27 (17-59) U/L ALT 17 (4-49) U/L Alkaline Phosphatase 55 (38-126) U/L C-Reactive Protein (<1.0) mg/dL Total Protein 7.3 (6.3-8.2) g/dL Albumin 4.7 (3.5-5.0) g/dL Amylase 131 H (30-110) U/L Lipase 49 (23-300) U/L 11/23/23 Range/Units 18:36 WBC (3.8-10.6) k/uL RBC (4.30-5.90) m/uL Hgb (13.0-17.5) gm/dL Hct (39.0-53.0) % MCV (80.0-100.0) fL MCH (25.0-35.0) pg MCHC (31.0-37.0) g/dL RDW (11.5-15.5) % Plt Count (150-450) k/uL MPV Neutrophils % % Lymphocytes % % Monocytes % % Eosinophils % % Basophils % % Neutrophils # (1.3-7.7) k/uL Lymphocytes # (1.0-4.8) k/uL Monocytes # (0-1.0) k/uL Eosinophils # (0-0.7) k/uL Basophils # (0-0.2) k/uL Sodium (137-145) mmol/L Potassium (3.5-5.1) mmol/L Chloride (98-107) mmol/L Carbon Dioxide (22-30) mmol/L Anion Gap mmol/L BUN (9-20) mg/dL Creatinine (0.66-1.25) mg/dL Est GFR (CKD-EPI)AfAm (>60 ml/min/1.73 sqM) Est GFR (CKD-EPI)NonAf (>60 ml/min/1.73 sqM) Glucose (74-99) mg/dL Plasma Lactic Acid Gorge (0.7-2.0) mmol/L Calcium (8.4-10.2) mg/dL Total Bilirubin (0.2-1.3) mg/dL AST (17-59) U/L ALT (4-49) U/L Alkaline Phosphatase (38-126) U/L C-Reactive Protein <0.5 (<1.0) mg/dL Total Protein (6.3-8.2) g/dL Albumin (3.5-5.0) g/dL Amylase (30-110) U/L Lipase (23-300) U/L Disposition Clinical Impression: Acute nausea with nonbilious vomiting Disposition: HOME SELF-CARE Condition: Good Instructions (If sedation given, give patient instructions): Acute Nausea and Vomiting (ED) Is patient prescribed a controlled substance at d/c from ED?: No Referrals: [facility] [Primary Care Provider] - 1-2 days
[2023-11-23 21:12] VITALS: BP 148/79; RESP 18; TEMP 99.3
== END 2023-11-23 21:01 | disposition home or self-care (01) ==
LOC: EC 17:08
DX: R11.2 Nausea with vomiting, unspecified (principal); Z87.891 Personal history of nicotine dependence
CPT/HCPCS: 36415; 80053; 82150; 83605; 83690; 85025; 86140; 99284; 96374; 96375 ×2; 96361; 96372; J0500; J2765; J2405; J3490

== ENCOUNTER 2024-01-09 07:40 | Emergency (ER) | payer OTHER ==
[2024-01-09 07:48] VITALS: TEMP 98.4
[2024-01-09] MEDS: ONDANSETRON 4 MG/2 ML VIAL IVP STA (08:09)
[2024-01-09] MEDS: SODIUM CHLORIDE 0.9% 2,000 ML IV STA (08:10)
[2024-01-09 08:23] LABS: Basophils % (A) 0 %; Eosinophils # (A) 0.1 k/uL (0-0.7); Eosinophils % (A) 1 %; HCT 46.7 % (39.0-53.0); HGB 15.8 gm/dL (13.0-17.5); Lymphocytes # (A) 1.5 k/uL (1.0-4.8); Lymphocytes % (A) 19 %; MCH 29.7 pg (25.0-35.0); MCHC 33.9 g/dL (31.0-37.0); MCV 87.7 fL (80.0-100.0); Mean Platelet Volume 8.2; Monocytes # (A) 0.8 k/uL (0-1.0); Monocytes % (A) 10 %; Neutrophils # (A) 5.2 k/uL (1.3-7.7); Neutrophils % (A) 68 %; Platelet Count 357 k/uL (150-450); RBC 5.33 m/uL (4.30-5.90); RDW 12.9 % (11.5-15.5); WBC 7.7 k/uL (3.8-10.6)
[2024-01-09 08:40] LABS: ALT 14 U/L (4-49); AST 18 U/L (17-59); African American GFR (CKD) >90 (>60 ml/min/1.73 sqM); Albumin 4.3 g/dL (3.5-5.0); Alkaline Phosphatase 44 U/L (38-126); Anion Gap 8 mmol/L; Blood Urea Nitrogen 9 mg/dL (9-20); Calcium 9.2 mg/dL (8.4-10.2); Carbon Dioxide 28 mmol/L (22-30); Chloride 99 mmol/L (98-107); Glucose 122 mg/dL (74-99); Lipase 60 U/L (23-300); Non-African American GFR(CKD) >90 (>60 ml/min/1.73 sqM); Potassium 2.8 mmol/L (3.5-5.1); Sodium 135 mmol/L (137-145); Total Protein 6.3 g/dL (6.3-8.2)
[2024-01-09] MEDS: POTASSIUM CHLORIDE ER 20 MEQ TAB.ER PO STA (08:55)
[2024-01-09] MEDS: diphenhydrAMINE 50 MG/ML 1 ML VIAL IVP STA (08:55)
[2024-01-09] MEDS: MORPHINE SULFATE 4 MG/ML SYRINGE IVP STA (08:55)
[2024-01-09] MEDS: POTASSIUM CHLORIDE 20 MEQ in WATER FOR INJECTION 1 100ML.BAG IVPB STA (08:55)
[2024-01-09] MEDS: METOCLOPRAMIDE 5 MG/ML 2 ML VIAL IVP STA (08:56)
[2024-01-09 09:03] VITALS: RESP 18
--- NOTE | 2024-01-09 10:18 | US ---
EXAMINATION TYPE: US gallbladder DATE OF EXAM: 01/09/2024 COMPARISON: NONE CLINICAL INDICATION: Male, 28 years old with history of ruq pain; TECHNIQUE: Multiple sonographic images of the right upper quadrant are obtained. FINDINGS: EXAM MEASUREMENTS: Liver Length: 13.4 cm Gallbladder Wall: 0.1 cm CBD: 0.4 cm Right Kidney: 11.4 x 4.2 x 5.1 cm SUPERVISOR CHANNEL PROCESS NOTES: Pancreas: Tail obscured by overlying bowel gas Liver: wnl Gallbladder: Fold noted Evidence for sonographic Aviles's sign: Yes CBD: wnl Right Kidney: wnl IMPRESSION: Positive sonographic Aviles's sign, without additional sonographic evidence of acute cholecystitis. P lease correlate and follow-up clinically.
[2024-01-09 10:39] LABS: Appearance,Urine Clear (Clear); Bilirubin,Urine Negative (Negative); Blood,Urine Negative (Negative); Color,Urine Colorless; Glucose,Urine (UA) Negative (Negative); Ketones,Urine 1+ (Negative); Leukocyte Esterase,Urine Negative (Negative); Nitrite,Urine Negative (Negative); PH, Urine 6.5 (5.0-8.0); Protein,Urine Negative (Negative); Specific Gravity,Urine 1.004 (1.001-1.035); Urobilinogen,Urine <2.0 mg/dL (<2.0)
--- NOTE | 2024-01-09 10:56 | ED ---
Abdominal Pain HPI - General Chief Complaint: Abdominal Pain Stated Complaint: vomitting, lightheaded Time Seen by Provider: 01/09/24 07:50 Source: patient Mode of arrival: wheelchair Limitations: no limitations - History of Present Illness Initial Comments: 28-year-old male who presents emergency department for nausea vomiting. States that his symptoms started yesterday as well as having some right upper quadrant/epigastric discomfort. Admits to numerous episodes of vomiting. He has not taken any medications yet to alleviate his symptoms. He denies any sick contacts with similar symptoms. Denies eating any tainted foods. He denies hematemesis. No history of gastric ulcers or gallstones. Patient is not an alcoholic. Denies daily NSAID use. He denies diarrhea, constipation, black or bloody stools. No changes in his urination. No other alleviating, precipitating or modifying factors - Related Data Home Medications Medication Instructions Recorded Confirmed amLODIPine [Norvasc] 5 mg PO DAILY 05/20/23 07/28/23 OLANZapine [ZyPREXA] 10 mg PO HS 07/28/23 07/28/23 busPIRone HCL 10 mg PO TID 07/28/23 07/28/23 lamoTRIgine [LaMICtal] 100 mg PO HS 07/28/23 07/28/23 traZODone HCL 150 mg PO HS PRN 07/28/23 07/28/23 Previous Rx's Medication Instructions Recorded FLUoxetine HCL [PROzac] 40 mg PO DAILY 30 Days #60 cap 03/02/23 carvediloL [Coreg] 6.25 mg PO BID-W/MEALS 30 Days #30 03/02/23 tab Ondansetron Odt [Zofran Odt] 4 mg PO Q8HR PRN #30 tab 07/29/23 Pantoprazole Sodium [Protonix] 40 mg PO AC-BRKFST #30 tab 07/29/23 Ondansetron Odt [Zofran Odt] 4 mg PO Q8HR PRN #30 tab 01/09/24 Allergies Allergy/AdvReac Type Severity Reaction Status Date / Time No Known Allergies Allergy Verified 01/09/24 07:45 Review of Systems ROS Statement: Those systems with pertinent positive or pertinent negative responses have been documented in the HPI. ROS Other: All systems not noted in ROS Statement are negative. Past Medical History Past Medical History: Asthma, Hypertension, Pneumonia Additional Past Medical History / Comment(s): Pt states he has had HTN in the past and was on HTN medication but was taken off of it and is monitoring his blood pressure. History of Any Multi-Drug Resistant Organisms: None Reported Past Surgical History: Hernia Repair Additional Past Surgical History / Comment(s): Umbilical hernia as a child Past Anesthesia/Blood Transfusion Reactions: No Reported Reaction Past Psychological History: Anxiety, Bipolar, Depression Smoking Status: Former smoker Past Alcohol Use History: None Reported Past Drug Use History: Marijuana - Past Family History Father Family Medical History: Diabetes Mellitus, Hypertension Additional Family Medical History / Comment(s): Father had bariatric surgery Mother Additional Family Medical History / Comment(s): Vision issues. General Exam Limitations: no limitations General appearance: alert, in no apparent distress Head exam: Present: atraumatic, normocephalic, normal inspection Eye exam: Present: normal appearance, PERRL, EOMI. Absent: scleral icterus, conjunctival injection, periorbital swelling ENT exam: Present: normal exam, mucous membranes moist Neck exam: Present: normal inspection. Absent: tenderness, meningismus, lymphadenopathy Respiratory exam: Present: normal lung sounds bilaterally. Absent: respiratory distress, wheezes, rales, rhonchi, stridor Cardiovascular Exam: Present: regular rate, normal rhythm, normal heart sounds. Absent: systolic murmur, diastolic murmur, rubs, gallop, clicks GI/Abdominal exam: Present: soft, tenderness (Epigastric), normal bowel sounds. Absent: distended, guarding, rebound, rigid Extremities exam: Present: normal inspection, full ROM, normal capillary refill. Absent: tenderness, pedal edema, joint swelling, calf tenderness Back exam: Present: normal inspection Neurological exam: Present: alert, oriented X3, CN II-XII intact Psychiatric exam: Present: normal affect, normal mood Skin exam: Present: warm, dry, intact, normal color. Absent: rash Course Vital Signs 01/09/24 01/09/24 01/09/24 07:45 09:00 10:00 Temperature 98.4 F Pulse Rate 103 H 72 72 Respiratory 16 18 18 Rate Blood Pressure 136/95 172/112 149/98 O2 Sat by Pulse 95 98 98 Oximetry 01/09/24 13:29 Temperature Pulse Rate 78 Respiratory 18 Rate Blood Pressure 141/92 O2 Sat by Pulse 97 Oximetry Medical Decision Making - Medical Decision Making Was pt. sent in by a medical professional or institution ([facility]INE Linn, COCOA ROOM OPERATOR, urgent care, hospital, or fpc...) When possible be specific @ -No Did you speak to anyone other than the patient for history (EMS, parent, family, police, friend...)? What history was obtained from this source @ -No Did you review nursing and triage notes (agree or disagree)? Why? @ -I reviewed and agree with nursing and triage notes Were old charts reviewed (outside hosp., previous admission, EMS record, old EKG, old radiological studies, urgent care reports/EKG's, fpc records)? Report findings @ -No old charts were reviewed Differential Diagnosis (chest pain, altered mental status, abdominal pain women, abdominal pain men, vaginal bleeding, weakness, fever, dyspnea, syncope, headache, dizziness, GI bleed, back pain, seizure, CVA, palpatations, mental health, musculoskeletal)? @ -Differential Abdominal Pain Men: Appendicitis, cholecystitis, diverticulosis, ischemic bowel, pancreatitis, hepatitis, UTI, gastroenteritis, AAA, incarcerated hernia, bowel obstruction, constipation, inflammatory bowel, hepatitis, peptic ulcer disease, splenic infarction, perforated viscus, testicular torsion, this is not meant to be an all-inclusive list EKG interpreted by me (3pts min.). @ -Not done X-rays interpreted by me (1pt min.). @ -None done CT interpreted by me (1pt min.). @ -None done U/S interpreted by me (1pt. min.). @ -Yes and demonstrates no acute process What testing was considered but not performed or refused? (CT, X-rays, U/S, labs)? Why? @ -None What meds were considered but not given or refused? Why? @ -None Did you discuss the management of the patient with other professionals (tato wild i.e. BLAINE Linn, COCOA ROOM OPERATOR, lab, RT, psych nurse, high school social studies tutor, eastern philosophy professor, teacher, parcel post officer, case therapist)? Give summary @ -No Was smoking cessation discussed for >3mins.? @ -No Was critical care preformed (if so, how long)? @ -No Were there social determinants of health that impacted care today? How? (Homelessness, low income, unemployed, alcoholism, drug addiction, transportation, low edu. Level, literacy, decrease access to med. care, longterm, rehab)? @ -No Was there de-escalation of care discussed even if they declined (Discuss DNR or withdrawal of care, Hospice)? DNR status @ -No What co-morbidities impacted this encounter? (DM, HTN, Smoking, COPD, CAD, Cancer, CVA, ARF, Chemo, Hep., AIDS, mental health diagnosis, sleep apnea, morbid obesity)? @ -None Was patient admitted / discharged? Hospital course, mention meds given and route, prescriptions, significant lab abnormalities, going to OR and other pertinent info. @ -Upon arrival patient seen and evaluated in room 16. Thorough history and physical exam was performed. IV access was established. Patient was given nausea and pain medications. Laboratory studies are conducted. Patient reevaluated and continues to have nausea. He is given a dose of Reglan and Benadryl. Gallbladder ultrasound was performed. Results are discussed with patient. He feels much improved at this time. He is able to eat and drink. Agreeable to discharge home. Will be provided with prescription for Zofran. Instructed to take the medications as directed. Follow-up with his doctor and return should he have any new or worsening symptoms. Patient agreeable to plan was discharged in stable condition Undiagnosed new problem with uncertain prognosis? @ -No Drug Therapy requiring intensive monitoring for toxicity (Heparin, Nitro, In sulin, Cardizem)? @ -No Were any procedures done? @ -No Diagnosis/symptom? @ -Acute nausea and vomiting, acute epigastric abdominal pain Acute, or Chronic, or Acute on Chronic? @ -Acute Uncomplicated (without systemic symptoms) or Complicated (systemic symptoms)? @ -Default Side effects of treatment? @ -No Exacerbation, Progression, or Severe Exacerbation? @ -No Poses a threat to life or bodily function? How? (Chest pain, USA, CA, pneumonia, PE, COPD, DKA, ARF, appy, cholecystitis, CVA, Diverticulitis, Homicidal, Suicidal, threat to staff... and all critical care pts) @ -No - Lab Data Result diagrams: 01/09/24 08:09 01/09/24 08:09 Lab Results 01/09/24 01/09/24 01/09/24 Range/Units 08:09 08:09 08:09 WBC 7.7 (3.8-10.6) k/uL RBC 5.33 (4.30-5.90) m/uL Hgb 15.8 (13.0-17.5) gm/dL Hct 46.7 (39.0-53.0) % MCV 87.7 (80.0-100.0) fL MCH 29.7 (25.0-35.0) pg MCHC 33.9 (31.0-37.0) g/dL RDW 12.9 (11.5-15.5) % Plt Count 357 (150-450) k/uL MPV 8.2 Neutrophils % 68 % Lymphocytes % 19 % Monocytes % 10 % Eosinophils % 1 % Basophils % 0 % Neutrophils # 5.2 (1.3-7.7) k/uL Lymphocytes # 1.5 (1.0-4.8) k/uL Monocytes # 0.8 (0-1.0) k/uL Eosinophils # 0.1 (0-0.7) k/uL Basophils # 0.0 (0-0.2) k/uL Sodium 135 L (137-145) mmol/L Potassium 2.8 L (3.5-5.1) mmol/L Chloride 99 (98-107) mmol/L Carbon Dioxide 28 (22-30) mmol/L Anion Gap 8 mmol/L BUN 9 (9-20) mg/dL Creatinine 0.92 (0.66-1.25) mg/dL Est GFR (CKD-EPI)AfAm >90 (>60 ml/min/1.73 sqM) Est GFR (CKD-EPI)NonAf >90 (>60 ml/min/1.73 sqM) Glucose 122 H (74-99) mg/dL Plasma Lactic Acid Gorge (0.7-2.0) mmol/L Calcium 9.2 (8.4-10.2) mg/dL Total Bilirubin 1.0 (0.2-1.3) mg/dL AST 18 (17-59) U/L ALT 14 (4-49) U/L Alkaline Phosphatase 44 (38-126) U/L Total Protein 6.3 (6.3-8.2) g/dL Albumin 4.3 (3.5-5.0) g/dL Lipase 60 (23-300) U/L Urine Color Colorless Urine Appearance Clear (Clear) Urine pH 6.5 (5.0-8.0) Ur Specific Franklin 1.004 (1.001-1.035) Urine Protein Negative (Negative) Urine Glucose (UA) Negative (Negative) Urine Ketones 1+ H (Negative) Urine Blood Negative (Negative) Urine Nitrite Negative (Negative) Urine Bilirubin Negative (Negative) Urine Urobilinogen <2.0 (<2.0) mg/dL Ur Leukocyte Esterase Negative (Negative) 01/09/24 Range/Units 08:09 WBC (3.8-10.6) k/uL RBC (4.30-5.90) m/uL Hgb (13.0-17.5) gm/dL Hct (39.0-53.0) % MCV (80.0-100.0) fL MCH (25.0-35.0) pg MCHC (31.0-37.0) g/dL RDW (11.5-15.5) % Plt Count (150-450) k/uL MPV Neutrophils % % Lymphocytes % % Monocytes % % Eosinophils % % Basophils % % Neutrophils # (1.3-7.7) k/uL Lymphocytes # (1.0-4.8) k/uL Monocytes # (0-1.0) k/uL Eosinophils # (0-0.7) k/uL Basophils # (0-0.2) k/uL Sodium (137-145) mmol/L Potassium (3.5-5.1) mmol/L Chloride (98-107) mmol/L Carbon Dioxide (22-30) mmol/L Anion Gap mmol/L BUN (9-20) mg/dL Creatinine (0.66-1.25) mg/dL Est GFR (CKD-EPI)AfAm (>60 ml/min/1.73 sqM) Est GFR (CKD-EPI)NonAf (>60 ml/min/1.73 sqM) Glucose (74-99) mg/dL Plasma Lactic Acid Gorge 1.1 (0.7-2.0) mmol/L Calcium (8.4-10.2) mg/dL Total Bilirubin (0.2-1.3) mg/dL AST (17-59) U/L ALT (4-49) U/L Alkaline Phosphatase (38-126) U/L Total Protein (6.3-8.2) g/dL Albumin (3.5-5.0) g/dL Lipase (23-300) U/L Urine Color Urine Appearance (Clear) Urine pH (5.0-8.0) Ur Specific Franklin (1.001-1.035) Urine Protein (Negative) Urine Glucose (UA) (Negative) Urine Ketones (Negative) Urine Blood (Negative) Urine Nitrite (Negative) Urine Bilirubin (Negative) Urine Urobilinogen (<2.0) mg/dL Ur Leukocyte Esterase (Negative) Disposition Clinical Impression: Intractable nausea and vomiting Disposition: HOME SELF-CARE Condition: Stable Instructions (If sedation given, give patient instructions): Acute Nausea and Vomiting (ED) Additional Instructions: Please come to the outpatient lab next week for reevaluation of your potassium. Your results will be sent to your primary care doctor. Use the nausea medications as needed and return for any new or worsening symptoms Prescriptions: Ondansetron Odt [Zofran Odt] 4 mg PO Q8HR PRN #30 tab PRN Reason: Nausea Is patient prescribed a controlled substance at d/c from ED?: No Referrals: [facility] [Primary Care Provider] - 1-2 days Time of Disposition: 13:10
[2024-01-09 13:30] VITALS: BP 141/92; PULSE 78
== END 2024-01-09 13:30 | disposition home or self-care (01) ==
LOC: EC 07:40
DX: R11.2 Nausea with vomiting, unspecified (principal); R10.13 Epigastric pain; F12.90 Cannabis use, unspecified, uncomplicated; Z87.891 Personal history of nicotine dependence
CPT/HCPCS: 99284; 96365; 96366; 96361; 96375; 36415; 80053; 83605; 83690; 85025; 81003; 76705; J2270; J1200; J2765; J3480; J2405

== ENCOUNTER → 2024-02-21 | Outpatient (CLI) | payer OTHER | END | disposition home or self-care (01) | LOC: LABPRL 12:34 | PROVIDERS: ATTEND Internal Medicine | DX: Z11.3 Encounter for screening for infections with a predominantly sexual mode of transmission (principal); I10 Essential (primary) hypertension; Z79.899 Other long term (current) drug therapy | CPT/HCPCS: 80053; 80061; 80074; 82306; 82607; 83735; 84439; 84443; 86780; 87390; 87491 ==